=== PATIENT | male | born 1995 | race Asian ===

== ENCOUNTER 2016-09-05 23:30 | Inpatient (IN) | payer OTHER ==
--- NOTE | 2016-09-05 23:52 | PDOC ---
History of Present Illness - General History Source: EMS, Care Home Records, Old Records Exam Limitations: No Limitations - History of Present Illness Initial Comments: 09/06/16 01:49 The patient is a 21 year old male with past medical history of PEG placement, endoscopy and colonoscopy (1 month ago) , pyloric stricture, MR, seizures, down syndrome, volvulus, from [facility] accompanied by an aide, who presents to the ED with complaints of persistent fever (Tmax 105), productive cough, and diarrhea for one week. The patient was treated for the flu last week, but his fever has still persisted. The patient denies nausea, vomiting, or any urinary symptoms. <Alicia San - Last Filed: 09/06/16 01:49> <Erin Chadwick - Last Filed: 09/06/16 18:15> - General Stated Complaint: FEVER Time Seen by Provider: 09/05/16 23:47 Past History <Alicia San - Last Filed: 09/06/16 01:49> - Past Medical History GI Disorders: Yes (Alverto Button) Psychiatric Problems: Yes (autism, down syndrome,tantrums) Seizures: Yes - Surgical History Abdominal Surgery: (TESFAYE-BARAKAT BUTTON) - Immunization History Immunization Up to Date: Yes - Psycho/Social/Smoking Cessation Hx Anxiety: No Suicidal Ideation: No Smoking History: Never smoked Have you smoked in the past 12 months: No Hx Alcohol Use: No Drug/Substance Use Hx: No Substance Use Type: None Hx Substance Use Treatment: No <Erin Chadwick - Last Filed: 09/06/16 18:15> - Past Medical History Allergies/Adverse Reactions: Allergies Allergy/AdvReac Type Severity Reaction Status Date / Time Penicillins Allergy Verified 09/06/16 02:28 shellfish derived Allergy Verified 09/06/16 02:28 Home Medications: Ambulatory Orders Melatonin 6 mg GT HS 12/03/13 Levetiracetam [Keppra Oral Solution -] 500 mg GT BID 03/27/15 Polyethylene Glycol 3350 [Glycolax] 17 gm GT BID 03/27/15 Acetaminophen [Tylenol] 650 mg GT Q4H PRN 04/11/15 Phenobarbital Liquid - [Phenobarbital Liquid 20 MG/5 ML -] 40 mg GT AM 04/11/15 Phenobarbital Liquid - [Phenobarbital Liquid 20 MG/5 ML -] 60 mg GT HS 04/11/15 Fluticasone Prop 0.05% Nasal [Flonase -] 1 - 2 spray NS BID 03/10/16 Ranitidine Oral Solution [Zantac Oral Solution -] 150 mg GT BID 03/10/16 Simethicone Liquid [Mylicon Liquid -] 40 mg GT TID 03/10/16 Sucralfate Oral Suspension [Carafate Oral Suspension -] 1 gm GT TID 03/10/16 Loperamide HCl [Loperamide] 2 mg GT BID PRN 06/02/16 Medium Chain Triglycerides [Mct Oil] 15 ml GT TID 06/02/16 Bisacodyl Suppository [Dulcolax Suppository -] 10 mg RC DAILY PRN #0 supp.rect 06/05/16 Silver Sulfadiazine 1% Top Cr [Silvadene -] 1 applic TP BID jar 06/05/16 Multivits W-Min/Ferrous Gluc [Centrum Multivit-Mineral Liq] 9 mg GT DAILY Review of Systems - Review of Systems Able to Perform ROS?: Yes Comments:: 09/06/16 01:49 CONSTITUTIONAL: Present: fever Absent: chills, diaphoresis, generalized weakness, malaise, loss of appetite HEENT: Absent: rhinorrhea, nasal congestion, throat pain, throat swelling, difficulty swallowing, mouth swelling, ear pain, eye pain, visual Changes CARDIOVASCULAR: Absent: chest pain, syncope, palpitations, irregular heart rate, lightheadedness , peripheral edema RESPIRATORY: Present: productive cough Absent: shortness of breath, dyspnea with exertion, orthopnea, wheezing, stridor, hemoptysis GASTROINTESTINAL: Present: diarrhea Absent: abdominal pain, abdominal distension, nausea, vomiting, constipation, melena, hematochezia GENITOURINARY: Absent: dysuria, frequency, urgency, hesitancy, hematuria, flank pain, genital pain MUSCULOSKELETAL: Absent: myalgia, arthralgia, joint swelling SKIN: Absent: rash, itching, pallor HEMATOLOGIC/IMMUNOLOGIC: Absent: easy bleeding, easy bruising, lymphadenopathy, frequent infections ENDOCRINE: Absent: unexplained weight gain, unexplained weight loss, heat intolerance, cold intolerance NEUROLOGIC: Absent: headache, focal weakness or paresthesias, dizziness, unsteady gait, seizure, mental status changes, bladder or bowel incontinence PSYCHIATRIC: Absent: anxiety, depression, suicidal or homicidal ideation, hallucinations. All Other Systems: Reviewed and Negative <Alicia San - Last Filed: 09/06/16 01:49> *Physical Exam - Physical Exam Comments: 09/06/16 01:50 GENERAL: Thin. Awake and alert. No acute distress. HEENT: Normocephalic, atraumatic. PERRLA, EOMI. No conjunctival pallor. Sclera are non- icteric. Moist mucous membranes. Oropharynx is clear. NECK: Supple. Full ROM. No JVD. Carotid pulses 2+ and symmetric, without bruits. No thyromegaly. No lymphadenopathy. CARDIOVASCULAR: Tachycardic. No murmurs, rubs, or gallops. Distal pulses are 2+ and symmetric. PULMONARY: No evidence of respiratory distress. Lungs clear to auscultation bilaterally. No wheezing, rales or rhonchi. ABDOMINAL: Soft. Non-tender. Distended abdomen. No rebound or guarding. No organomegaly. Tympanic bowel sounds. MUSCULOSKELETAL Normal range of motion at all joints. No bony deformities or tenderness. No CVA tenderness. EXTREMITIES: No cyanosis. No clubbing. No edema. No calf tenderness. SKIN: Warm and dry. Normal capillary refill. Sacral decubitus ulcer. NEUROLOGICAL: Contractured limbs but is making purposeful movement in extremities, non-verbal , non-ambulatory, incontinent Alert, awake. PSYCHIATRIC: Cooperative. Good eye contact. Appropriate mood and affect. <Alicia San - Last Filed: 09/06/16 01:49> ED Treatment Course - LABORATORY CBC & Chemistry Diagram: 09/06/16 01:00 09/06/16 01:00 - ADDITIONAL ORDERS Additional order review: 09/06/16 01:00 RBC 3.11 L D MCV 82.0 MCHC 30.5 L RDW 15.3 MPV 9.5 Neutrophils % Y Lymphocytes % Y <Alicia San - Last Filed: 09/06/16 01:49> - LABORATORY CBC & Chemistry Diagram: 09/06/16 07:40 09/06/16 07:40 <Erin Chadwick - Last Filed: 09/06/16 18:15> *DC/Admit/Observation/Transfer - Attestations Scribe Attestion: 09/06/16 01:54 Documentation prepared by Alicia San, acting as medical detailist for Erin Chadwick MD. <Alicia San - Last Filed: 09/06/16 01:49> - Discharge Dispostion Admit: Yes <Erin Chadwick - Last Filed: 09/06/16 18:15> Diagnosis at time of Disposition: Abdominal distention, Dehydration Diarrhea Qualifiers: Diarrhea type: unspecified type Qualified Code(s): R19.7 - Diarrhea, unspecified Pneumonia Qualifiers: Pneumonia type: due to unspecified organism Laterality: right Lung location: lower lobe of lung Qualified Code(s): J18.9 - Pneumonia, unspecified organism Anemia Qualifiers: Anemia type: other cause Other causes of anemia: other cause, not classified Qualified Code(s): D64.89 - Other specified anemias - Discharge Dispostion Condition at time of disposition: Fair
[2016-09-06] MEDS ORDERED: ACETAMINOPHEN 1000 MG/100 ML VIAL (NON FORMULARY) IVPB ONE (01:04)
[2016-09-06] MEDS ORDERED: SODIUM CHLORIDE 500 ML IV STA ×2 (01:04→04:09)
[2016-09-06 01:16] LABS: MCHC 30.5 g/dl (32.0-35.9); MEAN PLT VOLUME 9.5 fl (7.5-11.1); PLATELET COUNT 307 K/MM3 (134-434); RDW 15.3 % (11.9-15.9); WHITE BLOOD COUNT 21.2 K/mm3 (4.0-10.0)
[2016-09-06 01:44] LABS: ALBUMIN 2.9 g/dl (3.4-5.0); ANION GAP 11 (8-16); BILIRUBIN,TOTAL 0.3 mg/dL (0.2-1.0); CALCIUM 8.1 mg/dL (8.5-10.1); CO2 24 mmol/L (21-32); CREATININE 0.4 mg/dL (0.7-1.3); GLUCOSE,RANDOM 88 mg/dL (74-106); SGOT/AST 39 U/L (15-37); SGPT/ALT 33 U/L (12-78); TOT PROT 6.7 g/dl (6.4-8.2)
[2016-09-06 01:45] LABS: ALK PHOS 115 U/L (45-117)
[2016-09-06 02:12] LABS: VENOUS PH 7.5 (7.31-7.41)
[2016-09-06 02:13] LABS: VENOUS BLOOD GAS HCO3 23.2 meq/L (22-29)
[2016-09-06] MEDS ORDERED: LEVOFLOXACIN 500 MG IVPB 100 ML IVPB ONE (02:18)
[2016-09-06 02:28] VITALS: BMI 18.8
[2016-09-06 02:35] LABS: ANISOCYTOSIS 1+; POLYCHROMASIA 1+; SPHEROCYTE 1+
--- NOTE | 2016-09-06 04:28 | HP ---
CHIEF COMPLAINT: fever PCP: Dr. Rojo HISTORY OF PRESENT ILLNESS: This is a 21 year old male with a past medical history of down syndrome with severe MR, PEG, pyloric stricture, seizure disorder and recurrent volvulus ( most recently hospitalized 07/24-08/04 for same) who presents with fever and cough as per staff at [facility] [place]. Pt was recently treated for influenza with tamiflu, last dose yesterday, as there was influenza at the facility. Pt was sent to the ED for evaluation of temperature of 105 at facility. Pt is nonverbal at baseline and information is obtained from doll surgeon, nurse at facility and medical records. ER course was notable for: (1) temp 103 (2) WBC 21.2 (3) Hgb 7.8 Recent Travel: none PAST MEDICAL HISTORY: Downs Syndrome w/ severe MR Seizures Autism PICA PAST SURGICAL HISTORY: PEG encoscopy and colonoscopy on last admission Social History: Smoking: none Alcohol: none Drugs: none Family History: unable to obtain, pt nonverbal Allergies Penicillins Allergy (Verified 09/06/16 02:28) shellfish derived Allergy (Verified 09/06/16 02:28) HOME MEDICATIONS: 3 Medication Instructions Recorded Melatonin 6 mg GT HS 12/03/13 Levetiracetam [Keppra Oral 500 mg GT BID 03/27/15 Solution -] Polyethylene Glycol 3350 [Glycolax] 17 gm GT BID 03/27/15 Acetaminophen [Tylenol] 650 mg GT Q4H PRN 04/11/15 Phenobarbital Liquid - 40 mg GT AM 04/11/15 [Phenobarbital Liquid 20 MG/5 ML -] Phenobarbital Liquid - 60 mg GT HS 04/11/15 [Phenobarbital Liquid 20 MG/5 ML -] Fluticasone Prop 0.05% Nasal 1 - 2 spray NS BID 03/10/16 [Flonase -] Ranitidine Oral Solution [Zantac 150 mg GT BID 03/10/16 Oral Solution -] Simethicone Liquid [Mylicon Liquid 40 mg GT TID 03/10/16 -] Sucralfate Oral Suspension 1 gm GT TID 03/10/16 [Carafate Oral Suspension -] Loperamide HCl [Loperamide] 2 mg GT BID PRN 06/02/16 Medium Chain Triglycerides [Mct 15 ml GT TID 06/02/16 Oil] Bisacodyl Suppository [Dulcolax 10 mg RC DAILY PRN #0 supp.rect 06/05/16 Suppository -] Silver Sulfadiazine 1% Top Cr 1 applic TP BID jar 06/05/16 [Silvadene -] Multivits W-Min/Ferrous Gluc 9 mg GT DAILY 07/20/16 [Centrum Multivit-Mineral Liq] REVIEW OF SYSTEMS CONSTITUTIONAL: Present: fever Absent: chills, diaphoresis, generalized weakness, malaise, loss of appetite, weight change HEENT: Absent: rhinorrhea, nasal congestion, throat pain, throat swelling, difficulty swallowing, mouth swelling, ear pain, eye pain, visual changes CARDIOVASCULAR: Absent: chest pain, syncope, palpitations, irregular heart rate, lightheadedness , peripheral edema RESPIRATORY: Present: cough Absent: shortness of breath, dyspnea with exertion, orthopnea, wheezing, stridor , hemoptysis GASTROINTESTINAL:Present: abdominal distension, diarrhea, last BM 09/04, loose x 2 Absent: abdominal pain, nausea, vomiting, constipation, melena, hematochezia GENITOURINARY: Absent: dysuria, frequency, urgency, hesitancy, hematuria, flank pain, genital pain MUSCULOSKELETAL: Absent: myalgia, arthralgia, joint swelling, back pain, neck pain SKIN: Absent: rash, itching, pallor HEMATOLOGIC/IMMUNOLOGIC: Absent: easy bleeding, easy bruising, lymphadenopathy, frequent infections ENDOCRINE: Absent: unexplained weight gain, unexplained weight loss, heat intolerance, cold intolerance NEUROLOGIC: Absent: headache, focal weakness or paresthesias, dizziness, unsteady gait, seizure, mental status changes, bladder or bowel incontinence PSYCHIATRIC: Absent: anxiety, depression, suicidal or homicidal ideation, hallucinations. PHYSICAL EXAMINATION Vital Signs - 24 hr 3 09/06/16 02:24 Temperature 103 F H Pulse Rate 119 H Respiratory 22 Rate Blood Pressure 109/53 O2 Sat by Pulse 95 Oximetry (%) GENERAL: Awake, alert, and nonverbal, in no acute distress. HEAD: Normal with no signs of trauma. EYES: Pupils equal, round and reactive to light, extraocular movements grossly intact; unable to follow commands, sclera anicteric, conjunctiva clear. No lid lag. EARS, NOSE, THROAT: Ears normal, nares patent, oropharynx clear without exudates. Moist mucous membranes. NECK: Normal range of motion, supple without lymphadenopathy, JVD, or masses. LUNGS: Breath sounds equal, clear to auscultation bilaterally. No wheezes, and no crackles. No accessory muscle use. HEART: Regular rate and rhythm, normal S1 and S2 without murmur, rub or gallop. ABDOMEN: nontender, normoactive bowel sounds, no guarding, no rebound, no masses. No hepatomegaly or splenomegaly. GT site noted with mild discharge and excoriation, surrounding skin painted blue, Firm, distended. rectal vault empty, distended MUSCULOSKELETAL: Normal range of motion at all joints. No bony deformities or tenderness. No CVA tenderness. UPPER EXTREMITIES: 2+ pulses, warm, well-perfused. No cyanosis. No clubbing. Cap refill <2 seconds. No peripheral edema. LOWER EXTREMITIES: 2+ pulses, warm, well-perfused. No calf tenderness. No peripheral edema. NEUROLOGICAL: Cranial nerves II-XII intact. Normal speech. Normal gait. PSYCHIATRIC: unable to follow commands, tracks a light with his eyes SKIN: Hot, dry, normal turgor, no rashes or lesions noted. stage 2 PU noted sacral area, approx 2cm x 1cm, wound bed pink, no slough, no discharge, healing ulcer noted right ischium, + erythema, dry skin with small areas of scabbing. Laboratory Results - last 24 hr 3 09/06/16 09/06/16 09/06/16 09/06/16 09/06/16 01:00 01:00 01:00 02:05 02:59 WBC 21.2 H D RBC 3.11 L D Hgb 7.8 L D Hct 25.5 L D MCV 82.0 MCHC 30.5 L RDW 15.3 Plt Count 307 D MPV 9.5 Neutrophils % 83.0 H D Lymphocytes % 2.0 L D Monocytes % 2.0 L D Band Neutrophils 13.0 H Polychromasia 1+ Anisocytosis 1+ Spherocytes 1+ VBG pH 7.50 H POC VBG pCO2 30.3 L D POC VBG pO2 84.9 H D Sodium 143 Potassium 3.7 Chloride 108 H Carbon Dioxide 24 Anion Gap 11 BUN 20 H D Creatinine 0.4 L Creat Clearance w eGFR > 60 Random Glucose 88 Lactic Acid 1.729 Calcium 8.1 L Total Bilirubin 0.3 D AST 39 H D ALT 33 D Alkaline Phosphatase 115 D Total Protein 6.7 D Albumin 2.9 L Stool Occult Blood Positive ASSESSMENT/PLAN: 21yM with PMH 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 He is being admitted for sepsis. Sepsis secondary to pneumonia vs acute abdominal pathology - sepsis as indicated by fever, tachycardia and elevated WBC - received 500mg levofloxacin in ED, consider change to zosyn/vanc given hospitalization 1 month ago and lives in group setting so high risk for resistant microbes, await CT result - NS bolus 500cc given, will repeat as still no urine output. FC to be placed until urine obtained. Abdominal distention/volvulus - CT abd/pelvis with contrast via GT ordered - rectal tube placed, gas and 200cc liquid stool obtained, with improvement in abd distention; will need GT to suction after CT completed. - likely will need GI and surgery follow up. On previous admission diverting colostomy had been recommended as outpatient - as per nurse at [facility], no evidence of scheduled follow-up with surgery actually being completed anemia - no active bleeding noted on rectal exam but stool guiac positive - repeat CBC in AM PU stage 2 sacrum - allevyn dressing seizure disorder - cont home keppra dose functional quadriplegia - pt is unable to feed self, turn or toilet independently, dependent on staff for all ADLS - hi risk for aspiration pneumonia, pressure ulcers. - cont to provide supportive care DVT PPX - defer heparin as guaic positive and anemia - BOBBY stockings and SCD FEN - NS @ 125cc/hr when bolus completes - repeat BMP in am - hold tube feeding due to abd distention Dispo: Pt currently requires inpatient care. Visit type - Emergency Visit Emergency Visit: Yes ED Registration Date: 09/05/16 Care time: The patient presented to the Emergency Department on the above date and was hospitalized for further evaluation of their emergent condition. - New Patient This patient is new to me today: Yes Date on this admission: 09/06/16 - Critical Care Critical Care patient: No
[2016-09-06 04:36] LABS: URINE APPEARANCE SLCLOUDY; URINE BILIRUBIN NEGATIVE (NEGATIVE); URINE BLOOD NEGATIVE (NEGATIVE); URINE COLOR YELLOW; URINE GLUCOSE (UA) NEGATIVE (NEGATIVE); URINE KETONE TRACE (NEGATIVE); URINE LEUK ESTERASE NEGATIVE (NEGATIVE); URINE NITRITE NEGATIVE (NEGATIVE); URINE UROBILINOGEN 2.0 E.U/dl E.U./dl (0.2-1.0)
[2016-09-06] MEDS ORDERED: SODIUM CHLORIDE 1,000 ML IV SCH (04:45)
[2016-09-06 05:06] LABS: URINE PROTEIN 1+ (NEGATIVE)
[2016-09-06] MEDS ORDERED: MEDIUM CHAIN TRIGLYCERIDES GT SCH (06:00)
[2016-09-06] MEDS ORDERED: PHENOBARBITAL 20 MG/5 ML *473mL BULK BOTTLE GT SCH ×2 (07:00→22:00)
[2016-09-06] MEDS ORDERED: DEXTROSE 5%-NORMAL SALINE 1,000 ML with POTASSIUM CHLORIDE 40 MEQ IVPB SCH (08:00)
[2016-09-06 08:02] LABS: BASOPHIL 0.3 % (0-2.0); EOSINOPHIL 0.1 % (0-4.5); MCH 25.8 pg (25.7-33.7); MCHC 31.3 g/dl (32.0-35.9); MEAN CELL VOLUME 82.3 fl (80-96); MEAN PLT VOLUME 8.9 fl (7.5-11.1); NEUTROPHILS 92.7 % (42.8-82.8); PLATELET COUNT 240 K/MM3 (134-434); WHITE BLOOD COUNT 19.9 K/mm3 (4.0-10.0)
[2016-09-06 08:14] LABS: INR 1.35 (0.82-1.09); PROTHROMBIN TIME (PATIENT) 14.9 SEC (9.98-11.88)
[2016-09-06] MEDS: SUCRALFATE 1 GM/10 ML UNIT DOSE CUPS GT SCH ×2 (08:15→14:47)
[2016-09-06] MEDS: SIMETHICONE 40 MG/0.6 ML BOTTLE GT SCH ×2 (08:15→14:47)
[2016-09-06 08:17] LABS: ACTIVATED PTT 35.5 SECONDS (26.9-34.4)
[2016-09-06] MEDS: DEXTROSE 5%-NORMAL SALINE 1,000 ML IV SCH (08:18)
[2016-09-06 08:27] LABS: CALCIUM 7.3 mg/dL (8.5-10.1); CREATININE 0.3 mg/dL (0.7-1.3); MAGNESIUM 2.1 mg/dL (1.8-2.4); PHOSPHOROUS 1.5 mg/dL (2.5-4.9)
[2016-09-06] MEDS: FLUTICASONE PROP 0.05% 16 GM NASAL SPRAY NS SCH ×2 (09:08→23:05)
[2016-09-06] MEDS ORDERED: RANITIDINE HCL 150 MG/10 ML UNIT-DOSE CUP GT SCH (10:00)
[2016-09-06] MEDS ORDERED: MULTIVITAMINS LIQUID THERAPEUTIC 118 ML BOT GT SCH (10:00)
[2016-09-06] MEDS ORDERED: levETIRAcetam 500 MG/5 ML ORAL SOLUTION (UNIT-DOSE CUPS) GT SCH (10:00)
[2016-09-06] MEDS: METRONIDAZOLE 500 MG PREMIXED 100 ML IVPB SCH ×2 (12:58→19:40)
--- NOTE | 2016-09-06 16:54 | PN ---
Physical Exam: SUBJECTIVE: Patient seen and examined in the ER. He appeared lethargic and in no acute distress. His aide Gonsalo was at the bedside. OBJECTIVE: Vital Signs Period Temp Pulse Resp BP Sys/Begum Pulse Ox Last 24 Hr 97.5 F-97.9 F 78-96 17-20 91-150/54-128 96-110 GENERAL: Pt is lethargic, opens eyes intermittently, in no acute distress. HEAD: Normal with no signs of trauma. EYES: conjunctiva clear. No ptosis. ENT: moist mucous membranes. NECK: Trachea midline, full range of motion, supple. LUNGS: Breath sounds equal, diminished but clear to auscultation bilaterally, no wheezes, HEART: Regular rate and rhythm, S1, S2 without murmur, rub or gallop. ABDOMEN: soft abdomen, + bowel sounds, mildly distended now, some facial grimacing when palpating LLQ, noted to have 1100cc of liquids stool in rectal tube EXTREMITIES: 2+ pulses, warm, well-perfused, no edema. NEUROLOGICAL: Non verbal, bed bound PSYCH: lethargic, facial grimacing on exam SKIN: Stage 2 pressure ulcer (2 cm x 1 cm) noted sacral area without slough, drainage or odor. Wound is present on admission. Laboratory Results - last 24 hr 09/06/16 09/06/16 09/06/16 04:23 04:23 07:40 WBC 19.9 H RBC 2.96 L Hgb 7.6 L Hct 24.4 L MCV 82.3 MCHC 31.3 L RDW 15.0 Plt Count 240 D MPV 8.9 Neutrophils % 92.7 H Lymphocytes % 3.5 L D Monocytes % 3.4 L Eosinophils % 0.1 D Basophils % 0.3 INR PTT (Actin FS) Sodium Potassium Chloride Carbon Dioxide Anion Gap BUN Creatinine Random Glucose Lactic Acid 1.208 Calcium Phosphorus Magnesium Urine Color Yellow Urine Appearance Slcloudy Urine pH 6.0 Ur Specific Omro 1.042 H Urine Protein 1+ H Urine Glucose (UA) Negative Urine Ketones Trace H Urine Blood Negative Urine Nitrite Negative Urine Bilirubin Negative Urine Urobilinogen 2.0 e.u/dl Ur Leukocyte Esterase Negative 09/06/16 09/06/16 07:40 07:40 WBC RBC Hgb Hct MCV MCHC RDW Plt Count MPV Neutrophils % Lymphocytes % Monocytes % Eosinophils % Basophils % INR 1.35 H PTT (Actin FS) 35.5 H Sodium 140 Potassium 3.5 Chloride 111 H Carbon Dioxide 22 Anion Gap 7 L BUN 21 H Creatinine 0.3 L D Random Glucose 74 Lactic Acid Calcium 7.3 L Phosphorus 1.5 L D Magnesium 2.1 Urine Color Urine Appearance Urine pH Ur Specific Omro Urine Protein Urine Glucose (UA) Urine Ketones Urine Blood Urine Nitrite Urine Bilirubin Urine Urobilinogen Ur Leukocyte Esterase Active Medications Generic Name Dose Route Start Last Admin Trade Name David PRN Reason Stop Dose Admin Fluticasone Propionate 1 spray 09/06/16 10:00 09/06/16 09:08 Flonase - NS Not Given BID TRUDY Dextrose/Sodium Chloride 1,000 mls @ 100 mls/hr 09/06/16 08:00 09/06/16 08:18 D5-Ns - IV 100 mls/hr ASDIR TRUDY Administration Metronidazole 100 mls @ 100 mls/hr 09/06/16 12:45 09/06/16 12:58 Flagyl 500mg Premixed Ivpb - IVPB 100 mls/hr Q8H-IV TRUDY Administration Levetiracetam 500 mg 09/06/16 10:00 09/06/16 09:09 Keppra Oral Solution - GT 500 mg BID TRUDY Administration Multivitamins 5 ml 09/06/16 10:00 09/06/16 09:09 Thera-Plus - GT 5 ml DAILY TRUDY Administration Non-Formulary Medication 15 ml 09/06/16 06:00 Medium Chain Triglycerides [Mct Oil] GT TID TRUDY Phenobarbital 40 mg 09/06/16 07:00 09/06/16 08:00 Phenobarbital Liquid - GT 40 mg AM TRUDY Administration Phenobarbital 60 mg 09/06/16 22:00 Phenobarbital Liquid - GT HS TRUDY Ranitidine HCl 150 mg 09/06/16 10:00 09/06/16 09:09 Zantac Oral Solution - GT 150 mg BID TRUDY Administration Simethicone 40 mg 09/06/16 06:00 09/06/16 14:47 Mylicon Liquid - GT 40 mg TID TRUDY Administration Sucralfate 1 gm 09/06/16 06:00 09/06/16 14:47 Carafate Oral Suspension - GT 1 gm TID TRUDY Administration ASSESSMENT/PLAN: [facility] 21 [facility] with a significant past medical history of down syndrome, profound MR, autism, pyloric stricture, PEG tube, seizures and recurrent Volvulus. He presented to the ER on 2015 from his assisted with fevers of 105F. He is being admitted for sepsis, diarrhea, abdominal distention and dehydration. ID: Sepsis - acute Assessmen/Plan: Unclear etiology of sepsis (pneumonia vs abdominal source). In ER he was noted to have a fever of 103F, have tachycardia with leukocytosis ( WBC 21.2). He received Levaquin 500mg in ED, Saline bolus of 500cc. His abdomen was noted to be very firm and distended in ED and rectal tube was placed. He has since put out over 1100 cc of liquid stool. His abdomen now is soft, with mild distention. Will hold off on intermittent GT suction for now and continue rectal tube. He is negative for c.diff CT scan of the abdomen shows rt mid/rll pneumonia. Cannot rule out complete or transient Volvulus. Started pt on Flagyl q8 pending GI recommendations ID consulted as pt has multiple risk factors and at risk for severe sepsis Hematology: Anemia - acute Assessment/Plan: Stool is guiac positive, CBC repeated and remains anemic will stop Zantac and start on IVP Protonix BID, if active GI bleed, will start on protonix drip Will repeat CBC in a.m. Transfuse prbc if hmg less than 7. Integumentary: Stage 2 pressure ulcer of the Sacrum - chronic Assessment/Plan: This wound measures (2 cm x 1 cm) and was present on admission. The wound does not appear infected, there is no drainage, odor or slough. Wound should be cleansed daily with sterile saline and covered with Allevyn dressing Turn and position q 2 Neurology: Seizure Disorder - chronic On Keppra 500mg BID through GT in assisted, switched to the equivalent IV since NPO. Phenobarbitol also switched to the equivalent IV form. Confirmed dosage conversion with pharmacy Seizure precautions F.E.N. hold tube feeds and GT meds since NPO IV fluids of D5 NS at 100cc/hr Prophylaxis: DVT: SCDs, no AC secondary to positive guiac GI: Protonix 40mg IV BID Dispo: Pt currently requires inpatient care. Full Code Visit type - Emergency Visit Emergency Visit: Yes ED Registration Date: 09/06/16 Care time: The patient presented to the Emergency Department on the above date and was hospitalized for further evaluation of their emergent condition. - New Patient This patient is new to me today: Yes Date on this admission: 09/06/16 - Critical Care Critical Care patient: No - Discharge Referral Referred to [facility] No
--- NOTE | 2016-09-06 18:08 | CONSULT ---
Consult Consult Specialty:: infectious diseases Reason for Consultation:: abd distension. colitis - History of Present Illness History of Present Illness: This is a 21 year old male with a past medical history of down syndrome with severe MR, PEG, pyloric stricture, seizure disorder and recurrent volvulus ( most recently hospitalized 07/24-08/04 for same) who presents with fever and cough as per staff at [facility]. Pt was recently treated for influenza with tamiflu, last dose yesterday, as there was influenza at the facility. Pt was sent to the ED for evaluation of temperature of 105 at facility. Pt is nonverbal at baseline and information is obtained from retirement assistant, nurse at facility and medical records. patient comes in with abd distension and colitis according to his previous notes patient has couple of times volvolus and the problems are caused by that The distension caused by the recurring volvulus caused pressure and leakage leading to ulceration beneath and adjacent to his G tube. looks like option of surgery was discussed with the family patient has excoriation below the tube - Past Medical History ETL LEAD: Yes: Seizure, Other (Down Syndrome, autistic) Gastrointestinal: Yes: Constipation, GI Bleed (rectal erosion bleed 05/03), Other (chronic pseudoobstruction, G-tube feedings) - Past Surgical History Past Surgical History: Yes: Colonoscopy - Alcohol/Substance Use Hx Alcohol Use: No - Smoking History Smoking history: Never smoked Have you smoked in the past 12 months: No - Social History Usual Living Arrangement: Assisted Living ADL: Support Services Home Medications - Allergies Allergies/Adverse Reactions: Allergies Allergy/AdvReac Type Severity Reaction Status Date / Time Penicillins Allergy Verified 09/06/16 02:28 shellfish derived Allergy Verified 09/06/16 02:28 - Home Medications Home Medications: Ambulatory Orders Melatonin 6 mg GT HS 12/03/13 Levetiracetam [Keppra Oral Solution -] 500 mg GT BID 03/27/15 Polyethylene Glycol 3350 [Glycolax] 17 gm GT Q12H 03/27/15 Acetaminophen [Tylenol] 650 mg GT Q4H PRN 04/11/15 Phenobarbital Liquid - [Phenobarbital Liquid 20 MG/5 ML -] 40 mg GT AM 04/11/15 Phenobarbital Liquid - [Phenobarbital Liquid 20 MG/5 ML -] 60 mg GT HS 04/11/15 Fluticasone Prop 0.05% Nasal [Flonase -] 1 - 2 spray NS BID 03/10/16 Ranitidine Oral Solution [Zantac Oral Solution -] 150 mg GT Q12H 03/10/16 Simethicone Liquid [Mylicon Liquid -] 40 mg GT TID 03/10/16 Sucralfate Oral Suspension [Carafate Oral Suspension -] 1 gm GT TID 03/10/16 Loperamide HCl [Loperamide] 2 mg GT Q4H PRN 06/02/16 Medium Chain Triglycerides [Mct Oil] 15 ml GT TID 06/02/16 Silver Sulfadiazine 1% Top Cr [Silvadene -] 1 applic TP BID jar 06/05/16 Multivits W-Min/Ferrous Gluc [Centrum Multivit-Mineral Liq] 9 mg GT DAILY Bisacodyl 1 mg RC Q12H PRN 09/06/16 Furosemide [Lasix -] 10 mg PO DAILY 09/06/16 Physical Exam Vital Signs: Vital Signs Temperature 97.9 F 09/06/16 15:20 Pulse Rate 84 09/06/16 15:20 Respiratory Rate 17 09/06/16 15:20 Blood Pressure 91/54 09/06/16 15:20 O2 Sat by Pulse Oximetry (%) 98 09/06/16 15:20 Constitutional: Yes: Moderate Distress, Other Cardiovascular: Yes: WNL, Regular Rate and Rhythm Respiratory: Yes: Poor Air Entry, Rhonchi Gastrointestinal: Yes: Distention, Hypoactive Bowel Sounds, Other (tympanic) Renal/: Yes: Other (rectal tube placed) Musculoskeletal: Yes: Other Extremities: Yes: Other Neurological: Yes: Alert, Other Labs: CBC, BMP 09/06/16 07:40 09/06/16 07:40 Imaging - Results Chest X-ray: Report Reviewed, Image Reviewed X-ray: Report Reviewed, Image Reviewed Cat Scan: Report Reviewed, Image Reviewed Assessment/Plan 21yM with PMH 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 He is being admitted for sepsis. Sepsis secondary to pneumonia vs acute abdominal pathology Abdominal distention/volvulus anemia PU stage 2 sacrum seizure disorder functional quadriplegia plan will start patient on aztreonam vanco monitor abd surgery consult gi consult npo hydration
[2016-09-06] MEDS: AZTREONAM 1 GM in DEXTROSE 5%-WATER - 50 ML IVPB SCH (18:23)
[2016-09-06] MEDS ORDERED: METRONIDAZOLE 500 MG PREMIXED 100 ML IVPB ONE (19:40)
--- NOTE | 2016-09-06 21:29 | CONSULT ---
Consult Consult Specialty:: Gastroenterology Referred by:: Dr. Nolasco Reason for Consultation:: Diarrhea and abdominal distension - History of Present Illness Chief Complaint: Unable to offer complaints History of Present Illness: 21M with Down's Syndrome is tranferred from [facility] where he had a fever of 105 and h/o recent flu. CXR revealed poor inspiration with distended bowels loops in the ER. Rectal tube was inserted and CT revealed new bilateral infiltrates. During his last admission Devan underwent and EGD and a colonoscopy. Colonoscopy ( 07/27/16) revealed a stercoral ulcer which has been a source of bleeding. He was also found to have a sigmoid colon volvulus transition area that was confirmed by gastrograffin enema. A hyperplastic sigmoid polyp was removed. EGD ( 07/27/16) revealed a long benign long antral stricture which was not traversable with an endoscope. These problems were discussed with Trini, his sister in [place] who is his health care proxy with options including a diverting colostomy and perhaps a gastroenterostomy or J tube insertion. Trini was agreeable to the colostomy. Surgery was consulted but chose to defer the procedure to an outpatient situation which never came to fruition. The distension caused by the recurring volvulus caused pressure and leakage leading to ulceration beneath and adjacent to his Adria G tube. 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: Seizure, Other (Down Syndrome, autistic) Pulmonary: Yes: Pneumonia Gastrointestinal: Yes: Constipation, GERD (esophageal ulcer bleed endoclipped at [facility], h/o bleeding Mackenzie Radha tear), GI Bleed (rectal erosion bleed 05/03), Other (sigmoid volvulus,chronic pseudoobstruction, Adria G-tube feedings, stercoral rectal ulcer,antral stricture, hyperplastic sigmoid polyp ) - Past Surgical History Past Surgical History: Yes: Colonoscopy, Upper Endoscopy Additional Surgical History: Adria G tube insertion after repeated avulsions - Alcohol/Substance Use Hx Alcohol Use: No - Smoking History Smoking history: Never smoked Have you smoked in the past 12 months: No - Social History Usual Living Arrangement: Assisted Living ADL: Support Services Place of : [facility] History of Recent Travel: No Home Medications - Allergies Allergies/Adverse Reactions: Allergies Allergy/AdvReac Type Severity Reaction Status Date / Time Penicillins Allergy Verified 09/06/16 02:28 shellfish derived Allergy Verified 09/06/16 02:28 - Home Medications Home Medications: Ambulatory Orders Melatonin 6 mg GT HS 12/03/13 Levetiracetam [Keppra Oral Solution -] 500 mg GT BID 03/27/15 Polyethylene Glycol 3350 [Glycolax] 17 gm GT Q12H 03/27/15 Acetaminophen [Tylenol] 650 mg GT Q4H PRN 04/11/15 Phenobarbital Liquid - [Phenobarbital Liquid 20 MG/5 ML -] 40 mg GT AM 04/11/15 Phenobarbital Liquid - [Phenobarbital Liquid 20 MG/5 ML -] 60 mg GT HS 04/11/15 Fluticasone Prop 0.05% Nasal [Flonase -] 1 - 2 spray NS BID 03/10/16 Ranitidine Oral Solution [Zantac Oral Solution -] 150 mg GT Q12H 03/10/16 Simethicone Liquid [Mylicon Liquid -] 40 mg GT TID 03/10/16 Sucralfate Oral Suspension [Carafate Oral Suspension -] 1 gm GT TID 03/10/16 Loperamide HCl [Loperamide] 2 mg GT Q4H PRN 06/02/16 Medium Chain Triglycerides [Mct Oil] 15 ml GT TID 06/02/16 Silver Sulfadiazine 1% Top Cr [Silvadene -] 1 applic TP BID jar 06/05/16 Multivits W-Min/Ferrous Gluc [Centrum Multivit-Mineral Liq] 9 mg GT DAILY Bisacodyl 1 mg RC Q12H PRN 09/06/16 Furosemide [Lasix -] 10 mg PO DAILY 09/06/16 Physical Exam-GI Vital Signs: Vital Signs Temperature 96.6 F L 09/06/16 19:45 Pulse Rate 82 09/06/16 19:45 Respiratory Rate 20 09/06/16 19:45 Blood Pressure 98/73 09/06/16 19:45 O2 Sat by Pulse Oximetry (%) 95 09/06/16 19:45 Current Medications Generic Name Dose Route Start Last Admin Trade Name Freq PRN Reason Stop Dose Admin Fluticasone Propionate 1 spray 09/06/16 10:00 09/06/16 09:08 Flonase - NS Not Given BID TRUDY Dextrose/Sodium Chloride 1,000 mls @ 100 mls/hr 09/06/16 08:00 09/06/16 08:18 D5-Ns - IV 100 mls/hr ASDIR TRUDY Administration Metronidazole 100 mls @ 100 mls/hr 09/06/16 12:45 09/06/16 19:40 Flagyl 500mg Premixed Ivpb - IVPB 100 mls/hr Q8H-IV TRUDY Administration Pantoprazole Sodium 100 mls @ 200 mls/hr 09/06/16 22:00 Protonix 40mg Ivpb (Pre-Docked) IVPB BID TRUDY Aztreonam 1 gm/ Dextrose 50 mls @ 100 mls/hr 09/06/16 18:15 09/06/16 18:23 IVPB 100 mls/hr Q8H-IV TRUDY Administration Vancomycin HCl 250 mls @ 250 mls/hr 09/06/16 22:00 Vancomycin (Pre-Docked) IVPB BID TRUDY Levetiracetam 500 mg 09/06/16 22:00 Keppra Injection - IVPB BID TRUDY Non-Formulary Medication 15 ml 09/06/16 06:00 Medium Chain Triglycerides [Mct Oil] GT TID TRUDY Phenobarbital 40 mg 09/07/16 10:00 Phenobarbital Injection - IVPB DAILY TRUDY Phenobarbital 60 mg 09/06/16 22:00 Phenobarbital Injection - IVPB HS TRUDY CBC,CMP WBC 19.9 K/mm3 (4.0-10.0) H 09/06/16 07:40 RBC 2.96 M/mm3 (4.00-5.60) L 09/06/16 07:40 Hgb 7.6 GM/dL (11.7-16.9) L 09/06/16 07:40 Hct 24.4 % (35.4-49) L 09/06/16 07:40 MCV 82.3 fl (80-96) 09/06/16 07:40 MCHC 31.3 g/dl (32.0-35.9) L 09/06/16 07:40 RDW 15.0 % (11.9-15.9) 09/06/16 07:40 Plt Count 240 K/MM3 (134-434) D 09/06/16 07:40 MPV 8.9 fl (7.5-11.1) 09/06/16 07:40 Neutrophils % 92.7 % (42.8-82.8) H 09/06/16 07:40 Lymphocytes % 3.5 % (8-40) L D 09/06/16 07:40 Monocytes % 3.4 % (3.8-10.2) L 09/06/16 07:40 Eosinophils % 0.1 % (0-4.5) D 09/06/16 07:40 Basophils % 0.3 % (0-2.0) 09/06/16 07:40 Band Neutrophils 13.0 % (0-10) H 09/06/16 01:00 Polychromasia 1+ 09/06/16 01:00 Anisocytosis 1+ 09/06/16 01:00 Spherocytes 1+ 09/06/16 01:00 Sodium 140 mmol/L (136-145) 09/06/16 07:40 Potassium 3.5 mmol/L (3.5-5.1) 09/06/16 07:40 Chloride 111 mmol/L (98-107) H 09/06/16 07:40 Carbon Dioxide 22 mmol/L (21-32) 09/06/16 07:40 Anion Gap 7 (8-16) L 09/06/16 07:40 BUN 21 mg/dL (7-18) H 09/06/16 07:40 Creatinine 0.3 mg/dL (0.7-1.3) L D 09/06/16 07:40 Creat Clearance w eGFR > 60 (>60) 09/06/16 01:00 POC Glucometer 119.41078 UNITS (()) 09/06/16 17:52 Random Glucose 74 mg/dL (74-106) 09/06/16 07:40 Lactic Acid 1.208 mmol/L (0.4-2.0) 09/06/16 04:23 Calcium 7.3 mg/dL (8.5-10.1) L 09/06/16 07:40 Phosphorus 1.5 mg/dL (2.5-4.9) L D 09/06/16 07:40 Magnesium 2.1 mg/dL (1.8-2.4) 09/06/16 07:40 Total Bilirubin 0.3 mg/dL (0.2-1.0) D 09/06/16 01:00 AST 39 U/L (15-37) H D 09/06/16 01:00 ALT 33 U/L (12-78) D 09/06/16 01:00 Alkaline Phosphatase 115 U/L (45-117) D 09/06/16 01:00 Total Protein 6.7 g/dl (6.4-8.2) D 09/06/16 01:00 Albumin 2.9 g/dl (3.4-5.0) L 09/06/16 01:00 Constitutional: Yes: Anxious, Diaphoresis Eyes: Yes: Conjunctiva Clear HENT: Yes: Drooling Neck: Yes: Supple Cardiovascular: Yes: Regular Rate and Rhythm, Tachycardia Respiratory: Yes: Rhonchi (bilaterally at bases) Gastrointestinal Inspection: Yes: Distention, Other (epigastrc Adria Gtube wih adjacent erosions cleansed and redressed, no fluctuance) ...Auscultate: Yes: Normoactive Bowel Sounds ...Palpate: Yes: Soft, Other (nontender) ...Percussion: Yes: Tympanitic ...Rectal Exam: Yes: Guaiac Positive, Other (no perianal or rectal abscesses found, rectal tube in place) Labs: CBC, BMP 09/06/16 07:40 09/06/16 07:40 INR, PTT INR 1.35 (0.82-1.09) H 09/06/16 07:40 Imaging - Results Cat Scan: Image Reviewed (diated proximal half of colon, G tube, bilateral pneumonias) Problem List - Problems (1) Sigmoid volvulus Code(s): K56.2 - VOLVULUS (2) Stercoral ulcer of rectum Code(s): K62.6 - ULCER OF ANUS AND RECTUM (3) Gastric hourglass stricture or stenosis Code(s): K31.2 - HOURGLASS STRICTURE AND STENOSIS OF STOMACH (4) Sigmoid polyp Code(s): D12.5 - BENIGN NEOPLASM OF SIGMOID COLON (5) H/O Mackenzie-Guillen syndrome Code(s): Z87.19 - PERSONAL HISTORY OF OTHER DISEASES OF THE DIGESTIVE SYSTEM Assessment/Plan Devan's fever appears to reflect bilateral pneumonias which I suspect to be due to aspiration. This could reflect his antral stricture or volvulus or both. Given the complexity of his condition I feel that he would best be served by a diverting colostomy and surgical placement of a feeding jejunostomy tube. NG suctioning will be started to more adequately relieve his distension. A surgical consultation is necessary before these options can be discussed again with Trini, his sister and HCP. I will leave the pneumonia management to ID solar energy consultant and designer
[2016-09-06] MEDS ORDERED: PT OWN MED DRAWER 7, Y5N ONE (21:57)
[2016-09-06] MEDS: PANTOPRAZOLE SODIUM 100 ML IVPB SCH (23:05)
[2016-09-06] MEDS: VANCOMYCIN 1 GRAM (PRE-DOCKED) 250 ML IVPB SCH (23:09)
[2016-09-07] MEDS: levETIRAcetam 500 MG/5 ML INJECTION VIAL IVPB SCH ×3 (00:29→22:26)
[2016-09-07] MEDS: PHENobarbital SODIUM 65 MG/1 ML VIAL IVPB SCH ×3 (01:29→22:27)
[2016-09-07] MEDS: AZTREONAM 1 GM in DEXTROSE 5%-WATER - 50 ML IVPB SCH ×3 (03:24→18:22)
[2016-09-07] MEDS: METRONIDAZOLE 500 MG PREMIXED 100 ML IVPB SCH ×3 (03:46→18:22)
[2016-09-07] MEDS ORDERED: PT OWN MED DRAWER 7, Y5N ONE ×3 (05:18→18:16)
[2016-09-07 06:39] LABS: BASOPHIL 0.3 % (0-2.0); EOSINOPHIL 0.9 % (0-4.5); MCH 25.3 pg (25.7-33.7); MCHC 30.6 g/dl (32.0-35.9); MEAN CELL VOLUME 82.6 fl (80-96); MEAN PLT VOLUME 9.3 fl (7.5-11.1); NEUTROPHILS 83.9 % (42.8-82.8); PLATELET COUNT 302 K/MM3 (134-434); RDW 15.2 % (11.9-15.9); WHITE BLOOD COUNT 7.2 K/mm3 (4.0-10.0)
[2016-09-07 06:53] LABS: INR 1.33 (0.82-1.09); PROTHROMBIN TIME (PATIENT) 14.7 SEC (9.98-11.88)
[2016-09-07 07:12] LABS: ALBUMIN 2.2 g/dl (3.4-5.0); ANION GAP 5 (8-16); CALCIUM 7.1 mg/dL (8.5-10.1); CO2 21 mmol/L (21-32); CREATININE 0.3 mg/dL (0.7-1.3); GLUCOSE,RANDOM 83 mg/dL (74-106); SGOT/AST 26 U/L (15-37); SGPT/ALT 25 U/L (12-78)
[2016-09-07 07:14] LABS: ALK PHOS 70 U/L (45-117); BILIRUBIN,TOTAL 0.3 mg/dL (0.2-1.0); TOT PROT 5.3 g/dl (6.4-8.2)
--- NOTE | 2016-09-07 07:15 | EKG ---
Test Reason : Blood Pressure : / mmHG Vent. Rate : 103 BPM Atrial Rate : 103 BPM P-R Int : 146 ms QRS Dur : 078 ms QT Int : 330 ms P-R-T Axes : 050 055 009 degrees QTc Int : 432 ms SINUS TACHYCARDIA T WAVE ABNORMALITY, CONSIDER ANTERIOR ISCHEMIA ABNORMAL ECG NO PREVIOUS ECGS AVAILABLE Confirmed by RAE CIFUENTES MD ([id number]) on 09/07/2016 7:15:02 AM Referred By: Overread By: RAE CIFUENTES MD
[2016-09-07] MEDS: DEXTROSE 5%-NORMAL SALINE 1,000 ML IV SCH (09:27)
[2016-09-07] MEDS: PANTOPRAZOLE SODIUM 100 ML IVPB SCH ×2 (09:27→22:28)
[2016-09-07] MEDS: VANCOMYCIN 1 GRAM (PRE-DOCKED) 250 ML IVPB SCH ×2 (10:14→22:28)
[2016-09-07] MEDS: FLUTICASONE PROP 0.05% 16 GM NASAL SPRAY NS SCH ×2 (11:16→22:28)
--- NOTE | 2016-09-07 18:09 | PN ---
Progress Note, Physician History of Present Illness: patient better abd still distended i have opened the g tube and let the air out patients abd has decompressed and now the abd is soft and the distension has gone down - Current Medication List Current Medications: Active Medications Fluticasone Propionate (Flonase -) 1 spray NS BID REPLACED BY [facility] Last Admin: 09/07/16 11:16 Dose: 1 spray Dextrose/Sodium Chloride (D5-Ns -) 1,000 mls @ 100 mls/hr IV ASDIR REPLACED BY [facility] Last Admin: 09/07/16 09:27 Dose: 100 mls/hr Metronidazole (Flagyl 500mg Premixed Ivpb -) 100 mls @ 100 mls/hr IVPB Q8H-IV REPLACED BY [facility] Last Admin: 09/07/16 10:57 Dose: 100 mls/hr Pantoprazole Sodium (Protonix 40mg Ivpb (Pre-Docked)) 100 mls @ 200 mls/hr IVPB BID REPLACED BY [facility] Last Admin: 09/07/16 09:27 Dose: 200 mls/hr Aztreonam 1 gm/ Dextrose 50 mls @ 100 mls/hr IVPB Q8H-IV REPLACED BY [facility] Last Admin: 09/07/16 11:15 Dose: 100 mls/hr Vancomycin HCl (Vancomycin (Pre-Docked)) 250 mls @ 250 mls/hr IVPB BID REPLACED BY [facility] Last Admin: 09/07/16 10:14 Dose: 250 mls/hr Levetiracetam (Keppra Injection -) 500 mg IVPB BID REPLACED BY [facility] Last Admin: 09/07/16 11:16 Dose: 500 mg Phenobarbital (Phenobarbital Injection -) 40 mg IVPB DAILY REPLACED BY [facility] Last Admin: 09/07/16 11:16 Dose: 40 mg Phenobarbital (Phenobarbital Injection -) 60 mg IVPB HS REPLACED BY [facility] Last Admin: 09/07/16 01:29 Dose: 60 mg - Objective Vital Signs: Vital Signs Temperature 98.4 F 09/07/16 11:00 Pulse Rate 73 09/07/16 11:00 Respiratory Rate 18 09/07/16 11:00 Blood Pressure 93/62 09/07/16 11:00 O2 Sat by Pulse Oximetry (%) 96 09/07/16 09:00 Constitutional: Yes: Calm, Mild Distress Cardiovascular: Yes: Regular Rate and Rhythm Respiratory: Yes: Regular, Poor Air Entry Gastrointestinal: Yes: Normal Bowel Sounds, Soft Musculoskeletal: Yes: Other Extremities: Yes: Other Neurological: Yes: Alert, Other Labs: CBC, BMP 09/07/16 05:35 09/07/16 05:35 INR, PTT INR 1.33 (0.82-1.09) H 09/07/16 05:35 Assessment/Plan 21yM with PMH 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 He is being admitted for sepsis. Sepsis secondary to pneumonia vs acute abdominal pathology Abdominal distention/volvulus anemia PU stage 2 sacrum seizure disorder functional quadriplegia plan will start patient on aztreonam vanco monitor abd surgery consult gi consult npo hydration we will connect the g tube to drainage bag
--- NOTE | 2016-09-07 18:25 | PN ---
Physical Exam: SUBJECTIVE: Patient seen and examined. He is awake, he appears comfortable. He is itching his GT site to excoriation OBJECTIVE: Vital Signs Period Temp Pulse Resp BP Sys/Begum Pulse Ox Last 24 Hr 96.6 F-98.4 F 73-87 18-20 88-102/46-73 95-96 PE Neuro: non verbal, awake, alert, + moan screams Pulm: diminished CV: s1 s2 rrr no mrg Abd: distended + GT with excoriated edges, + drainage mucus membrane red : rectal tube no melena noted Ex: warm, no edema, Laboratory Results - last 24 hr 09/07/16 09/07/16 09/07/16 05:35 05:35 05:35 WBC 7.2 D RBC 3.15 L Hgb 8.0 L Hct 26.0 L MCV 82.6 MCHC 30.6 L RDW 15.2 Plt Count 302 D MPV 9.3 Neutrophils % 83.9 H Lymphocytes % 9.6 D Monocytes % 5.3 Eosinophils % 0.9 D Basophils % 0.3 INR 1.33 H Sodium 136 Potassium 3.4 L Chloride 110 H Carbon Dioxide 21 Anion Gap 5 L BUN 11 D Creatinine 0.3 L Creat Clearance w eGFR > 60 Random Glucose 83 Calcium 7.1 L Total Bilirubin 0.3 AST 26 D ALT 25 D Alkaline Phosphatase 70 D Total Protein 5.3 L D Albumin 2.2 L D Valproic Acid 09/07/16 05:35 WBC RBC Hgb Hct MCV MCHC RDW Plt Count MPV Neutrophils % Lymphocytes % Monocytes % Eosinophils % Basophils % INR Sodium Potassium Chloride Carbon Dioxide Anion Gap BUN Creatinine Creat Clearance w eGFR Random Glucose Calcium Total Bilirubin AST ALT Alkaline Phosphatase Total Protein Albumin Valproic Acid < 3.000 L Active Medications Generic Name Dose Route Start Last Admin Trade Name Freq PRN Reason Stop Dose Admin Fluticasone Propionate 1 spray 09/06/16 10:00 09/07/16 11:16 Flonase - NS 1 spray BID TRUDY Administration Dextrose/Sodium Chloride 1,000 mls @ 100 mls/hr 09/06/16 08:00 09/07/16 09:27 D5-Ns - IV 100 mls/hr ASDIR TRUDY Administration Metronidazole 100 mls @ 100 mls/hr 09/06/16 12:45 09/07/16 18:22 Flagyl 500mg Premixed Ivpb - IVPB 100 mls/hr Q8H-IV TRUDY Administration Pantoprazole Sodium 100 mls @ 200 mls/hr 09/06/16 22:00 09/07/16 09:27 Protonix 40mg Ivpb (Pre-Docked) IVPB 200 mls/hr BID TRUDY Administration Aztreonam 1 gm/ Dextrose 50 mls @ 100 mls/hr 09/06/16 18:15 09/07/16 18:22 IVPB 100 mls/hr Q8H-IV TRUDY Administration Vancomycin HCl 250 mls @ 250 mls/hr 09/06/16 22:00 09/07/16 10:14 Vancomycin (Pre-Docked) IVPB 250 mls/hr BID TRUDY Administration Levetiracetam 500 mg 09/06/16 22:00 09/07/16 11:16 Keppra Injection - IVPB 500 mg BID TRUDY Administration Phenobarbital 40 mg 09/07/16 10:00 09/07/16 11:16 Phenobarbital Injection - IVPB 40 mg DAILY TRUDY Administration Phenobarbital 60 mg 09/06/16 22:00 09/07/16 01:29 Phenobarbital Injection - IVPB 60 mg HS TRUDY Administration Assessment: 21 year old male with PMH 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 Plan: 1. Sepsis secondary to pneumonia vs acute abdominal pathology - Cont Aztreonam/Flagyl - Cont vanco likely until tomorrow - Leukocytosis improved - Discussed with ID, appreciate input 2. Abdominal distention/volvulus - Abd still with distention - Decompressed at bedside - Connect to drainage bag - Will hold on on feedings and observe distention - Surgery consulted for diverting colostomy with j tube placement - GI following 3. Anemia - No further signs of rectal bleeding - Hgb stable - Will monitor 4. PU stage 2 sacrum - Allevyn dressing 5. Seizure disorder - Cont home keppra dose - Cont phenobarbital doses 6. Functional quadriplegia - pt is unable to feed self, turn or toilet independently, dependent on staff for all ADLS - hi risk for aspiration pneumonia, pressure ulcers. - cont to provide supportive care 7. DVT PPX - BOBBY stockings and SCD, hold chemical AC this time concern for bleed, surgical eval pending 8. FEN - Hypokalemia: replete x1 20meq - NS @ 100cc/hr - Hold tube feeding due to abd distention, copy editor consulted for gt feed calculation Visit type - Emergency Visit Emergency Visit: Yes ED Registration Date: 09/06/16 Care time: The patient presented to the Emergency Department on the above date and was hospitalized for further evaluation of their emergent condition. - New Patient This patient is new to me today: Yes Date on this admission: 09/07/16 - Critical Care Critical Care patient: No - Discharge Referral Referred to [facility] Med P.C.: No
[2016-09-07] MEDS ORDERED: POTASSIUM CHLORIDE 40 MEQ/30 ML UNIT DOSE CUP GT ONE (18:45)
--- NOTE | 2016-09-07 18:53 | PN ---
GI Progress Note Subjective: GI NOte: NO vomiting but remains distended. G tube is only on gravity drainage. Have again asked for low intermittent Gomco suctioning. Anticipate consult with Dr Spain. I will ask that he discuss a diverting colostomy and a surgical feeding J tube placement with family. I called Trini his sister and HCP and await a return call. - Objective Vital Signs: Vital Signs Temperature 98.4 F 09/07/16 11:00 Pulse Rate 73 09/07/16 11:00 Respiratory Rate 18 09/07/16 11:00 Blood Pressure 93/62 09/07/16 11:00 O2 Sat by Pulse Oximetry (%) 96 09/07/16 09:00 CBC,CMP WBC 7.2 K/mm3 (4.0-10.0) D 09/07/16 05:35 RBC 3.15 M/mm3 (4.00-5.60) L 09/07/16 05:35 Hgb 8.0 GM/dL (11.7-16.9) L 09/07/16 05:35 Hct 26.0 % (35.4-49) L 09/07/16 05:35 MCV 82.6 fl (80-96) 09/07/16 05:35 MCHC 30.6 g/dl (32.0-35.9) L 09/07/16 05:35 RDW 15.2 % (11.9-15.9) 09/07/16 05:35 Plt Count 302 K/MM3 (134-434) D 09/07/16 05:35 MPV 9.3 fl (7.5-11.1) 09/07/16 05:35 Neutrophils % 83.9 % (42.8-82.8) H 09/07/16 05:35 Lymphocytes % 9.6 % (8-40) D 09/07/16 05:35 Monocytes % 5.3 % (3.8-10.2) 09/07/16 05:35 Eosinophils % 0.9 % (0-4.5) D 09/07/16 05:35 Basophils % 0.3 % (0-2.0) 09/07/16 05:35 Band Neutrophils 13.0 % (0-10) H 09/06/16 01:00 Polychromasia 1+ 09/06/16 01:00 Anisocytosis 1+ 09/06/16 01:00 Spherocytes 1+ 09/06/16 01:00 Sodium 136 mmol/L (136-145) 09/07/16 05:35 Potassium 3.4 mmol/L (3.5-5.1) L 09/07/16 05:35 Chloride 110 mmol/L (98-107) H 09/07/16 05:35 Carbon Dioxide 21 mmol/L (21-32) 09/07/16 05:35 Anion Gap 5 (8-16) L 09/07/16 05:35 BUN 11 mg/dL (7-18) D 09/07/16 05:35 Creatinine 0.3 mg/dL (0.7-1.3) L 09/07/16 05:35 Creat Clearance w eGFR > 60 (>60) 09/07/16 05:35 POC Glucometer 119.15330 UNITS (()) 09/06/16 17:52 Random Glucose 83 mg/dL (74-106) 09/07/16 05:35 Lactic Acid 1.208 mmol/L (0.4-2.0) 09/06/16 04:23 Calcium 7.1 mg/dL (8.5-10.1) L 09/07/16 05:35 Phosphorus 1.5 mg/dL (2.5-4.9) L D 09/06/16 07:40 Magnesium 2.1 mg/dL (1.8-2.4) 09/06/16 07:40 Total Bilirubin 0.3 mg/dL (0.2-1.0) 09/07/16 05:35 AST 26 U/L (15-37) D 09/07/16 05:35 ALT 25 U/L (12-78) D 09/07/16 05:35 Alkaline Phosphatase 70 U/L (45-117) D 09/07/16 05:35 Total Protein 5.3 g/dl (6.4-8.2) L D 09/07/16 05:35 Albumin 2.2 g/dl (3.4-5.0) L D 09/07/16 05:35 Constitutional: Anxious Gastrointestinal Inspection: Yes: Distention ...Auscultate: Yes: Hyperactive Bowel Sounds ...Palpate: Yes: Soft, Other (nontender) ...Percussion: Yes: Tympanitic Labs: CBC, BMP 09/07/16 05:35 09/07/16 05:35 INR, PTT INR 1.33 (0.82-1.09) H 09/07/16 05:35 Assessment/Plan Distension due to recurring sigmoid volvulus and gastric outlet obstruction leading to aspiration pneumonia. Will discuss advised interventions with Dr Spain when he consults. Problem List - Problems (1) Sigmoid volvulus Code(s): K56.2 - VOLVULUS (2) Stercoral ulcer of rectum Code(s): K62.6 - ULCER OF ANUS AND RECTUM (3) Gastric hourglass stricture or stenosis Code(s): K31.2 - HOURGLASS STRICTURE AND STENOSIS OF STOMACH (4) Sigmoid polyp Code(s): D12.5 - BENIGN NEOPLASM OF SIGMOID COLON (5) H/O Mackenzie-Guillen syndrome Code(s): Z87.19 - PERSONAL HISTORY OF OTHER DISEASES OF THE DIGESTIVE SYSTEM
[2016-09-07] MEDS ORDERED: POTASSIUM PHOSPHATE 15 MM in DEXTROSE 5%-WATER - 250 ML IVPB ONE (19:00)
[2016-09-08] MEDS: AZTREONAM 1 GM in DEXTROSE 5%-WATER - 50 ML IVPB SCH ×3 (02:05→17:55)
[2016-09-08] MEDS: METRONIDAZOLE 500 MG PREMIXED 100 ML IVPB SCH ×3 (02:05→17:54)
[2016-09-08] MEDS: DEXTROSE 5%-NORMAL SALINE 1,000 ML IV SCH ×2 (06:01→10:02)
[2016-09-08 08:16] LABS: BASOPHIL 0.9 % (0-2.0); EOSINOPHIL 2.1 % (0-4.5); MCH 25.7 pg (25.7-33.7); MCHC 31.3 g/dl (32.0-35.9); MEAN CELL VOLUME 82.3 fl (80-96); MEAN PLT VOLUME 9.5 fl (7.5-11.1); NEUTROPHILS 71.8 % (42.8-82.8); PLATELET COUNT 365 K/MM3 (134-434); WHITE BLOOD COUNT 4.6 K/mm3 (4.0-10.0)
[2016-09-08 09:10] LABS: ALBUMIN 2.3 g/dl (3.4-5.0); ALK PHOS 66 U/L (45-117); ANION GAP 6 (8-16); BILIRUBIN,TOTAL 0.3 mg/dL (0.2-1.0); CALCIUM 7.1 mg/dL (8.5-10.1); CO2 21 mmol/L (21-32); CREATININE 0.2 mg/dL (0.7-1.3); GLUCOSE,RANDOM 90 mg/dL (74-106); PHOSPHOROUS 2.7 mg/dL (2.5-4.9); SGPT/ALT 23 U/L (12-78); TOT PROT 5.6 g/dl (6.4-8.2)
[2016-09-08] MEDS ORDERED: PT OWN MED DRAWER 7, Y5N ONE ×3 (09:16→16:43)
[2016-09-08 09:20] LABS: SGOT/AST 34 U/L (15-37)
[2016-09-08] MEDS: levETIRAcetam 500 MG/5 ML INJECTION VIAL IVPB SCH ×2 (09:32→22:18)
[2016-09-08] MEDS: VANCOMYCIN 1 GRAM (PRE-DOCKED) 250 ML IVPB SCH ×2 (09:32→22:09)
[2016-09-08] MEDS: PANTOPRAZOLE SODIUM 100 ML IVPB SCH ×2 (09:32→22:17)
[2016-09-08] MEDS: PHENobarbital SODIUM 65 MG/1 ML VIAL IVPB SCH ×2 (10:45→22:17)
--- NOTE | 2016-09-08 13:00 | CONSULT ---
Consult Consult Specialty:: surgery Reason for Consultation:: sigmoid volvulus - History of Present Illness Chief Complaint: admitted for aspiration PNA History of Present Illness: pt came to hospital approx 3 days ago with hx of fever to 105. came here had CT showing PNA, fever 103 and WBC 21. He has hx of sigmoid volvulus but currently has rectal tube draining stool. he has a G tube for feeding. 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 biopsy benign. hx of pulling out his G tubes. he is nonverbal/chronic instutionalized. he was coughin when I saw him. 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, Other (Down Syndrome, autistic) Pulmonary: Yes: Pneumonia Gastrointestinal: Yes: Constipation, GI Bleed (rectal erosion bleed 05/03), Other (chronic pseudoobstruction, G-tube feedings) - Past Surgical History Past Surgical History: Yes: Colonoscopy Additional Surgical History: Adria G tube insertion after repeated avulsions - Alcohol/Substance Use Hx Alcohol Use: No - Smoking History Smoking history: Never smoked Have you smoked in the past 12 months: No - Social History Usual Living Arrangement: Assisted Living ADL: Support Services History of Recent Travel: No Home Medications - Allergies Allergies/Adverse Reactions: Allergies Allergy/AdvReac Type Severity Reaction Status Date / Time Penicillins Allergy Verified 09/06/16 02:28 shellfish derived Allergy Verified 09/06/16 02:28 - Home Medications Home Medications: Ambulatory Orders Melatonin 6 mg GT HS 12/03/13 Levetiracetam [Keppra Oral Solution -] 500 mg GT BID 03/27/15 Polyethylene Glycol 3350 [Glycolax] 17 gm GT Q12H 03/27/15 Acetaminophen [Tylenol] 650 mg GT Q4H PRN 04/11/15 Phenobarbital Liquid - [Phenobarbital Liquid 20 MG/5 ML -] 40 mg GT AM 04/11/15 Phenobarbital Liquid - [Phenobarbital Liquid 20 MG/5 ML -] 60 mg GT HS 04/11/15 Fluticasone Prop 0.05% Nasal [Flonase -] 1 - 2 spray NS BID 03/10/16 Ranitidine Oral Solution [Zantac Oral Solution -] 150 mg GT Q12H 03/10/16 Simethicone Liquid [Mylicon Liquid -] 40 mg GT TID 03/10/16 Sucralfate Oral Suspension [Carafate Oral Suspension -] 1 gm GT TID 03/10/16 Loperamide HCl [Loperamide] 2 mg GT Q4H PRN 06/02/16 Medium Chain Triglycerides [Mct Oil] 15 ml GT TID 06/02/16 Silver Sulfadiazine 1% Top Cr [Silvadene -] 1 applic TP BID jar 06/05/16 Multivits W-Min/Ferrous Gluc [Centrum Multivit-Mineral Liq] 9 mg GT DAILY Bisacodyl 1 mg RC Q12H PRN 09/06/16 Furosemide [Lasix -] 10 mg PO DAILY 09/06/16 Review of Systems - Review of Systems Constitutional: reports: Fever Eyes: reports: Other (unable to obtain) HENT: reports: Other (unable to obtain) Neck: reports: Other (unable to obtain) Cardiovascular: reports: Other (unable to obtain) Respiratory: reports: Cough Gastrointestinal: reports: Bloating, Other (unable to obtain) Genitourinary: reports: Other (unable to obtain) Breasts: reports: Other (unable to obtain) Musculoskeletal: reports: Other (unable to obtain) Integumentary: reports: Other (unable to obtain) Neurological: reports: Other (unable to obtain) Endocrine: reports: Other (unable to obtain) Hematology/Lymphatic: reports: Other (unable to obtain) Psychiatric: reports: Other (unable to obtain) Physical Exam Vital Signs: Vital Signs Temperature 97.4 F L 09/08/16 06:00 Pulse Rate 75 09/08/16 06:00 Respiratory Rate 20 09/08/16 06:00 Blood Pressure 106/68 09/08/16 06:00 O2 Sat by Pulse Oximetry (%) 96 09/07/16 21:00 Constitutional: Yes: Well Nourished, No Distress Eyes: Yes: Conjunctiva Clear HENT: Yes: Atraumatic Neck: Yes: Supple Cardiovascular: Yes: Regular Rate and Rhythm Respiratory: Yes: Cough Gastrointestinal: Yes: Soft, Distention, Other (g tube drained 200cc/12 hrs of clear fluid. rectal tube draining alot of liquid stool.) ...Rectal Exam: Yes: Deferred Renal/: No: CVA Tenderness - Left, CVA Tenderness - Right Breast(s): No: Nipple Inversion, Skin Changes Musculoskeletal: No: Back Pain, Joint Stiffness Extremities: No: Calf Tenderness, Erythema Neurological: Yes: Other (does not follow commands) Psychiatric: Yes: Other (does not follow commands) Labs: CBC, BMP 09/08/16 06:30 09/08/16 06:30 Imaging - Results Cat Scan: Report Reviewed, Image Reviewed Problem List - Problems (1) Abdominal distention Code(s): R14.0 - ABDOMINAL DISTENSION (GASEOUS) (2) Down's syndrome Code(s): Q90.9 - DOWN SYNDROME, UNSPECIFIED (3) Pneumonia Code(s): J18.9 - PNEUMONIA, UNSPECIFIED ORGANISM Qualifiers: Pneumonia type: due to unspecified organism Laterality: right Lung location: lower lobe of lung Qualified Code(s): J18.9 - Pneumonia, unspecified organism (4) Sigmoid volvulus Assessment/Plan: case d/w Dr. Perez at length plan will be for exlap, sigmoid resection and creation of end colostomy. Will confirm at time of laparotomy whether patient has true antral stricture/ blockage vs kinkage of stomach from G tube. if stricture will place J tube and keep G tube for decompression. If no stricture will attempt to better pexy stomach to relieve gastric outlet obstruction. also there is a change his sigmoid partial obstruction is causing this problem. 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 I hope to not have to put in J tube but will d/w pts HCP the possibility of such a treatment. given his severe PNA on CT will elect to give him a couple days to recover from that to better optimize him from pulmonary standpoint. Will plan on operating after Xmas. please try to feed him thru G tube slowly and check residuals frequently. if high residual place back on suction. Code(s): K56.2 - VOLVULUS (5) Seizure Code(s): R56.9 - UNSPECIFIED CONVULSIONS
[2016-09-08] MEDS: FLUTICASONE PROP 0.05% 16 GM NASAL SPRAY NS SCH ×2 (13:43→22:28)
[2016-09-08] MEDS: SILVER SULFADIAZINE 1% TOP CREAM 50 GM JAR TP SCH (13:43)
--- NOTE | 2016-09-08 17:06 | PN ---
Physical Exam: SUBJECTIVE: Patient seen and examined. He appears calm. No acute events noted GT drain: 250cc overnight OBJECTIVE: Vital Signs Period Temp Pulse Resp BP Sys/Begum Pulse Ox Last 24 Hr 97.4 F-98.2 F 75-82 18-20 106-118/61-75 96 PE Neuro: non verbal, awake, alert Pulm: diminished CV: s1 s2 rrr no mrg Abd: distended + GT with excoriated edges, + drainage mucus membrane red, GT drainage yellow straw clear colored : rectal tube brown stool Ex: warm, no edema Laboratory Results - last 24 hr 09/08/16 09/08/16 06:30 06:30 WBC 4.6 D RBC 3.27 L Hgb 8.4 L Hct 26.9 L MCV 82.3 MCHC 31.3 L RDW 15.0 Plt Count 365 D MPV 9.5 Neutrophils % 71.8 Lymphocytes % 16.2 D Monocytes % 9.0 Eosinophils % 2.1 D Basophils % 0.9 Sodium 138 Potassium 3.1 L Chloride 111 H Carbon Dioxide 21 Anion Gap 6 L BUN 7 D Creatinine 0.2 L D Creat Clearance w eGFR > 60 Random Glucose 90 Calcium 7.1 L Phosphorus 2.7 D Total Bilirubin 0.3 AST 34 D ALT 23 Alkaline Phosphatase 66 Total Protein 5.6 L Albumin 2.3 L Active Medications Generic Name Dose Route Start Last Admin Trade Name Freq PRN Reason Stop Dose Admin Fluticasone Propionate 1 spray 09/06/16 10:00 09/08/16 13:43 Flonase - NS 1 spray BID TRUDY Administration Metronidazole 100 mls @ 100 mls/hr 09/06/16 12:45 09/08/16 09:32 Flagyl 500mg Premixed Ivpb - IVPB 100 mls/hr Q8H-IV TRUDY Administration Pantoprazole Sodium 100 mls @ 200 mls/hr 09/06/16 22:00 09/08/16 09:32 Protonix 40mg Ivpb (Pre-Docked) IVPB 200 mls/hr BID TRUDY Administration Aztreonam 1 gm/ Dextrose 50 mls @ 100 mls/hr 09/06/16 18:15 09/08/16 10:01 IVPB 100 mls/hr Q8H-IV TRUDY Administration Vancomycin HCl 250 mls @ 250 mls/hr 09/06/16 22:00 09/08/16 09:32 Vancomycin (Pre-Docked) IVPB 250 mls/hr BID TRUDY Administration Potassium Chloride 20 meq/ 1,010 mls @ 84 mls/hr 09/08/16 16:00 Amino Acids IVPB Q12H TRUDY Levetiracetam 500 mg 09/06/16 22:00 09/08/16 09:32 Keppra Injection - IVPB 500 mg BID TRUDY Administration Phenobarbital 40 mg 09/07/16 10:00 09/08/16 10:45 Phenobarbital Injection - IVPB 40 mg DAILY TRUDY Administration Phenobarbital 60 mg 09/06/16 22:00 09/07/16 22:27 Phenobarbital Injection - IVPB 60 mg HS TRUDY Administration Silver Sulfadiazine 1 applic 09/08/16 10:15 09/08/16 13:43 Silvadene - TP 1 applic DAILY TRUDY Administration Assessment: 21 year old male with PMH 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 Plan: 1. Sepsis secondary to pneumonia vs acute abdominal pathology - Cont Aztreonam/Flagyl - Cont vanco - ID following 2. Abdominal distention from sigmoid volvulus vs obstruction - Plan for exlap sigmoid resection and creation of end colostomy, J tube placement pending presence of stricture with G tube retention as drain - D/w surgery, likely monday - Will hold on feeding - Cont draining - Start Clinimix w/ 20meq - Monitor BMP - GI following 3. Anemia - No further signs of rectal bleeding - Hgb stable - Will monitor 4. PU stage 2 sacrum - Allevyn dressing 5. Seizure disorder - Cont home keppra dose - Cont phenobarbital doses 6. Functional quadriplegia - pt is unable to feed self, turn or toilet independently, dependent on staff for all ADLS - hi risk for aspiration pneumonia, pressure ulcers. - cont to provide supportive care 7. DVT PPX - BOBBY stockings and SCD, hold chemical AC this time concern for bleed, surgical eval pending 8. FEN - Clinimix 84 with 20meq - Hold tube feeding due to abd distention, if restart feeds pending on output, will start perative Visit type - Emergency Visit Emergency Visit: Yes ED Registration Date: 09/06/16 Care time: The patient presented to the Emergency Department on the above date and was hospitalized for further evaluation of their emergent condition. - New Patient This patient is new to me today: No - Critical Care Critical Care patient: No - Discharge Referral Referred to [facility] No
[2016-09-08] MEDS: POTASSIUM CHLORIDE 20 MEQ in AMINO ACIDS 4.25%/D5W 1,000 ML IVPB SCH (18:37)
[2016-09-09] MEDS: METRONIDAZOLE 500 MG PREMIXED 100 ML IVPB SCH ×3 (01:04→19:01)
[2016-09-09] MEDS: AZTREONAM 1 GM in DEXTROSE 5%-WATER - 50 ML IVPB SCH ×3 (01:07→18:58)
[2016-09-09] MEDS: POTASSIUM CHLORIDE 20 MEQ in AMINO ACIDS 4.25%/D5W 1,000 ML IVPB SCH ×2 (06:35→16:39)
[2016-09-09 07:21] LABS: BASOPHIL 1.2 % (0-2.0); EOSINOPHIL 2.8 % (0-4.5); MCH 26.1 pg (25.7-33.7); MCHC 32.2 g/dl (32.0-35.9); MEAN CELL VOLUME 80.9 fl (80-96); MEAN PLT VOLUME 8.7 fl (7.5-11.1); NEUTROPHILS 64.7 % (42.8-82.8); PLATELET COUNT 386 K/MM3 (134-434); RDW 14.7 % (11.9-15.9); WHITE BLOOD COUNT 3.8 K/mm3 (4.0-10.0)
[2016-09-09 07:47] LABS: ANION GAP 5 (8-16); BILIRUBIN,TOTAL 0.2 mg/dL (0.2-1.0); CALCIUM 7.2 mg/dL (8.5-10.1); CO2 24 mmol/L (21-32); CREATININE 0.2 mg/dL (0.7-1.3); GLUCOSE,RANDOM 87 mg/dL (74-106); MAGNESIUM 2.1 mg/dL (1.8-2.4); SGOT/AST 25 U/L (15-37); SGPT/ALT 21 U/L (12-78); TOT PROT 5.1 g/dl (6.4-8.2)
[2016-09-09 07:48] LABS: ALK PHOS 59 U/L (45-117)
[2016-09-09] MEDS: PANTOPRAZOLE SODIUM 100 ML IVPB SCH ×2 (09:21→22:42)
[2016-09-09] MEDS: PHENobarbital SODIUM 65 MG/1 ML VIAL IVPB SCH ×2 (10:01→22:43)
[2016-09-09] MEDS ORDERED: PT OWN MED DRAWER 7, Y5N ONE ×2 (10:51→18:56)
[2016-09-09] MEDS: levETIRAcetam 500 MG/5 ML INJECTION VIAL IVPB SCH ×2 (11:00→22:43)
[2016-09-09] MEDS: SILVER SULFADIAZINE 1% TOP CREAM 50 GM JAR TP SCH (11:53)
[2016-09-09] MEDS: FLUTICASONE PROP 0.05% 16 GM NASAL SPRAY NS SCH ×2 (11:53→23:12)
--- NOTE | 2016-09-09 12:08 | PN ---
Progress Note, Physician Chief Complaint: no new issues History of Present Illness: attempted to reach his HCP/alyce with no response yet. patient on clinimix. Gtube on suction and rectal tube in place. xray shows mild improvement but still distended. - Current Medication List Current Medications: Active Medications Fluticasone Propionate (Flonase -) 1 spray NS BID [facility] Last Admin: 09/09/16 11:53 Dose: 1 spray Metronidazole (Flagyl 500mg Premixed Ivpb -) 100 mls @ 100 mls/hr IVPB Q8H-IV TRUDY Last Admin: 09/09/16 11:50 Dose: 100 mls/hr Pantoprazole Sodium (Protonix 40mg Ivpb (Pre-Docked)) 100 mls @ 200 mls/hr IVPB BID TRUYD Last Admin: 09/09/16 09:21 Dose: 200 mls/hr Aztreonam 1 gm/ Dextrose 50 mls @ 100 mls/hr IVPB Q8H-IV TRUDY Last Admin: 09/09/16 01:07 Dose: 100 mls/hr Vancomycin HCl (Vancomycin (Pre-Docked)) 250 mls @ 250 mls/hr IVPB BID TRUDY Last Admin: 09/08/16 22:09 Dose: 250 mls/hr Potassium Chloride 20 meq/ (Amino Acids) 1,010 mls @ 84 mls/hr IVPB Q12H TRUDY Last Admin: 09/09/16 06:35 Dose: 84 mls/hr Levetiracetam (Keppra Injection -) 500 mg IVPB BID [facility] Last Admin: 09/09/16 11:00 Dose: 500 mg Phenobarbital (Phenobarbital Injection -) 40 mg IVPB DAILY TRUDY Last Admin: 09/09/16 10:01 Dose: 40 mg Phenobarbital (Phenobarbital Injection -) 60 mg IVPB HS TRUDY Last Admin: 09/08/16 22:17 Dose: 60 mg Silver Sulfadiazine (Silvadene -) 1 applic TP DAILY [facility] Last Admin: 09/09/16 11:53 Dose: 1 applic - Objective Vital Signs: Vital Signs Temperature 97.7 F 09/09/16 05:43 Pulse Rate 78 09/09/16 05:43 Respiratory Rate 20 09/09/16 05:43 Blood Pressure 112/60 09/09/16 05:43 O2 Sat by Pulse Oximetry (%) 96 09/08/16 20:16 Constitutional: Yes: No Distress, Calm Gastrointestinal: Yes: Soft, Distention. No: Tenderness Labs: CBC, BMP 09/09/16 06:30 09/09/16 06:30 INR, PTT INR 1.33 (0.82-1.09) H 09/07/16 05:35 Problem List - Problems (1) Abdominal distention Code(s): R14.0 - ABDOMINAL DISTENSION (GASEOUS) (2) Down's syndrome Code(s): Q90.9 - DOWN SYNDROME, UNSPECIFIED (3) Pneumonia Code(s): J18.9 - PNEUMONIA, UNSPECIFIED ORGANISM Qualifiers: Pneumonia type: due to unspecified organism Laterality: right Lung location: lower lobe of lung Qualified Code(s): J18.9 - Pneumonia, unspecified organism (4) Sigmoid volvulus Assessment/Plan: plan to operate on MondaySep 13 at 9am. await callback from HCP, his sister Alyce to d/w her and get consent hopefully this will be enough time for his PNA to improve to decrease risk of postop pulm complications operation will be exlap, sigmoid resection and creation colostomy. will then examine stomach. if he has antral stricture/mass will place J tube. If he has acute angulation causing gastric outlet obstruction will do gastropexy. ideally will just go sigmoid resection. I don't think he will have stricture of antrum because he has been getting TF okay. I think he aspirated in part because of the distal obstruction from intermittent chronic volvulus. Code(s): K56.2 - VOLVULUS (5) Seizure Code(s): R56.9 - UNSPECIFIED CONVULSIONS
[2016-09-09] MEDS: VANCOMYCIN 1 GRAM (PRE-DOCKED) 250 ML IVPB SCH ×2 (13:34→22:42)
--- NOTE | 2016-09-09 16:56 | PN ---
GI Progress Note Subjective: GI NOte: Dr Spain's consultation is greatly appreciated. Devan's abdomen is less distended despite the fact that his rectal tube has fallen out. I will leave it out and attempt G tube feedings. I was able to speak with Devan's health care proxy, his sister Trini. She is in a plane about to fly to [place] for the holiday. I explained Devan's situation and the need for a colostomy and jejunostomy feeding tube as well as some gastric intervention which may be amenable to surgical intervention ( detorting a gastric twist/volvulus caused by G tube traction). If not then I agree with Dr. Spain that a G tube may need to be left in place for drainage to prevent repeated aspirations. Trini is on agreement with my proposed surgical interventions. I have given her Dr Spain's office number and asked that she call him [email or web address] to given surgical consent. Trini's contacts are and email = [email or web address] ). - Objective Vital Signs: Vital Signs Temperature 97.2 F L 09/09/16 14:00 Pulse Rate 64 09/09/16 14:00 Respiratory Rate 20 09/09/16 14:00 Blood Pressure 105/65 09/09/16 14:00 O2 Sat by Pulse Oximetry (%) 96 09/08/16 20:16 Constitutional: Calm Gastrointestinal Inspection: Yes: Other (G tube excorations improved with mafenide. Reapplied and Telfa dressing applied.) ...Auscultate: Yes: Normoactive Bowel Sounds ...Palpate: Yes: Soft, Other (nontender) Labs: CBC, BMP 09/09/16 06:30 09/09/16 06:30 INR, PTT INR 1.33 (0.82-1.09) H 09/07/16 05:35 Assessment/Plan Will start NG feedings and hope for surgery next week. Problem List - Problems (1) Sigmoid volvulus Code(s): K56.2 - VOLVULUS (2) Stercoral ulcer of rectum Code(s): K62.6 - ULCER OF ANUS AND RECTUM (3) Gastric hourglass stricture or stenosis Code(s): K31.2 - HOURGLASS STRICTURE AND STENOSIS OF STOMACH (4) Sigmoid polyp Code(s): D12.5 - BENIGN NEOPLASM OF SIGMOID COLON (5) H/O Mackenzie-Guillen syndrome Code(s): Z87.19 - PERSONAL HISTORY OF OTHER DISEASES OF THE DIGESTIVE SYSTEM
--- NOTE | 2016-09-09 18:29 | PN ---
Physical Exam: SUBJECTIVE: Patient seen and examined. Rectal tube out. Currently, appears in no acute distress. OBJECTIVE: Vital Signs Period Temp Pulse Resp BP Sys/Begum Pulse Ox Last 24 Hr 97.2 F-97.9 F 64-78 20-20 102-112/60-65 96 PE Neuro: non verbal, awake, alert Pulm: diminished, no sob CV: s1 s2 rrr no mrg Abd: distended + GT with excoriated edges, + drainage mucus membrane red Ex: warm, no edema Laboratory Results - last 24 hr 09/09/16 09/09/16 06:30 06:30 WBC 3.8 L RBC 3.14 L Hgb 8.2 L Hct 25.4 L MCV 80.9 MCHC 32.2 RDW 14.7 Plt Count 386 MPV 8.7 Neutrophils % 64.7 Lymphocytes % 22.0 D Monocytes % 9.3 Eosinophils % 2.8 Basophils % 1.2 Sodium 136 Potassium 3.2 L Chloride 107 Carbon Dioxide 24 Anion Gap 5 L BUN 7 Creatinine 0.2 L Creat Clearance w eGFR > 60 Random Glucose 87 Calcium 7.2 L Magnesium 2.1 Total Bilirubin 0.2 D AST 25 D ALT 21 Alkaline Phosphatase 59 Total Protein 5.1 L Albumin 2.0 L Active Medications Generic Name Dose Route Start Last Admin Trade Name Freq PRN Reason Stop Dose Admin Fluticasone Propionate 1 spray 09/06/16 10:00 09/09/16 11:53 Flonase - NS 1 spray BID TRUDY Administration Metronidazole 100 mls @ 100 mls/hr 09/06/16 12:45 09/09/16 11:50 Flagyl 500mg Premixed Ivpb - IVPB 100 mls/hr Q8H-IV TRUDY Administration Pantoprazole Sodium 100 mls @ 200 mls/hr 09/06/16 22:00 09/09/16 09:21 Protonix 40mg Ivpb (Pre-Docked) IVPB 200 mls/hr BID TRUDY Administration Aztreonam 1 gm/ Dextrose 50 mls @ 100 mls/hr 09/06/16 18:15 09/09/16 12:54 IVPB 100 mls/hr Q8H-IV TRUDY Administration Vancomycin HCl 250 mls @ 250 mls/hr 09/06/16 22:00 09/09/16 13:34 Vancomycin (Pre-Docked) IVPB 250 mls/hr BID TRUDY Administration Potassium Chloride 20 meq/ 1,010 mls @ 84 mls/hr 09/08/16 16:00 09/09/16 16:39 Amino Acids IVPB 84 mls/hr Q12H TRUDY Administration Levetiracetam 500 mg 09/06/16 22:00 09/09/16 11:00 Keppra Injection - IVPB 500 mg BID TRUDY Administration Phenobarbital 40 mg 09/07/16 10:00 09/09/16 10:01 Phenobarbital Injection - IVPB 40 mg DAILY TRUDY Administration Phenobarbital 60 mg 09/06/16 22:00 09/08/16 22:17 Phenobarbital Injection - IVPB 60 mg HS TRUDY Administration Silver Sulfadiazine 1 applic 09/08/16 10:15 09/09/16 11:53 Silvadene - TP 1 applic DAILY TRUDY Administration Assessment: 21 year old male with PMH 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 Plan: 1. Sepsis secondary to pneumonia vs acute abdominal pathology - Cont Aztreonam/Flagyl - Cont Vanco 2. Abdominal distention from sigmoid volvulus vs obstruction - Plan for exlap sigmoid resection and creation of end colostomy, J tube placement pending presence of stricture with G tube retention as drain, surgery and GI in touch with daughter Jade - D/w surgery, procedure scheduled for Monday - Initiate Tube feeds, if tolerate then d/c clinimix 3. Anemia - No further signs of rectal bleeding - Will monitor 4. PU stage 2 sacrum - Allevyn dressing 5. Seizure disorder - Cont home keppra dose - Cont phenobarbital doses 6. Functional quadriplegia - pt is unable to feed self, turn or toilet independently, dependent on staff for all ADLS - hi risk for aspiration pneumonia, pressure ulcers. - cont to provide supportive care 7. DVT PPX - BOBBY stockings and SCD, hold chemical AC this time concern for bleed, surgical eval pending 8. FEN - Start GT feedings, start slow Visit type - Emergency Visit Emergency Visit: Yes ED Registration Date: 09/06/16 Care time: The patient presented to the Emergency Department on the above date and was hospitalized for further evaluation of their emergent condition. - New Patient This patient is new to me today: No - Critical Care Critical Care patient: No - Discharge Referral Referred to [facility] No
[2016-09-09] MEDS ORDERED: POTASSIUM CHLORIDE 40 MEQ/30 ML UNIT DOSE CUP GT ONE ×2 (18:44→22:45)
--- NOTE | 2016-09-09 23:37 | PN ---
Progress Note (short form) - Note Progress Note: This is a 21 year old male with a past medical history of down syndrome with severe MR, PEG, pyloric stricture, seizure disorder and recurrent volvulus ( most recently hospitalized 07/24-08/04 for same) who presents with fever and cough as per staff at [facility]. Pt was recently treated for influenza with tamiflu, last dose yesterday, as there was influenza at the facility. Pt was sent to the ED for evaluation of temperature of 105 at facility. Pt is nonverbal at baseline and information is obtained from bobbin handler, nurse at facility and medical records. ER course was notable for: (1) temp 103 (2) WBC 21.2 (3) Hgb 7.8 PAST MEDICAL HISTORY: Downs Syndrome w/ severe MR Seizures Autism PICA PAST SURGICAL HISTORY: PEG encoscopy and colonoscopy on last admission Social History: Smoking: none Alcohol: none Drugs: none Family History: unable to obtain, pt nonverbal Allergies Penicillins Allergy (Verified 09/06/16 02:28) shellfish derived Allergy (Verified 09/06/16 02:28) HOME MEDICATIONS: 3 Medication Instructions Recorded Melatonin 6 mg GT HS 12/03/13 Levetiracetam [Keppra Oral 500 mg GT BID 03/27/15 Solution -] Polyethylene Glycol 3350 [Glycolax] 17 gm GT BID 03/27/15 Acetaminophen [Tylenol] 650 mg GT Q4H PRN 04/11/15 Phenobarbital Liquid - 40 mg GT AM 04/11/15 [Phenobarbital Liquid 20 MG/5 ML -] Phenobarbital Liquid - 60 mg GT HS 04/11/15 [Phenobarbital Liquid 20 MG/5 ML -] Fluticasone Prop 0.05% Nasal 1 - 2 spray NS BID 03/10/16 [Flonase -] Ranitidine Oral Solution [Zantac 150 mg GT BID 03/10/16 Oral Solution -] Simethicone Liquid [Mylicon Liquid 40 mg GT TID 03/10/16 -] Sucralfate Oral Suspension 1 gm GT TID 03/10/16 [Carafate Oral Suspension -] Loperamide HCl [Loperamide] 2 mg GT BID PRN 06/02/16 Medium Chain Triglycerides [Mct 15 ml GT TID 06/02/16 Oil] Bisacodyl Suppository [Dulcolax 10 mg RC DAILY PRN #0 supp.rect 06/05/16 Suppository -] Silver Sulfadiazine 1% Top Cr 1 applic TP BID jar 06/05/16 [Silvadene -] Multivits W-Min/Ferrous Gluc 9 mg GT DAILY 07/20/16 [Centrum Multivit-Mineral Liq] Current Medications Fluticasone Propionate (Flonase -) 1 spray NS BID [facility] Last Admin: 09/10/16 10:47 Dose: 1 spray Metronidazole (Flagyl 500mg Premixed Ivpb -) 100 mls @ 100 mls/hr IVPB Q8H-IV [facility] Last Admin: 09/10/16 10:44 Dose: 100 mls/hr Pantoprazole Sodium (Protonix 40mg Ivpb (Pre-Docked)) 100 mls @ 200 mls/hr IVPB BID [facility] Last Admin: 09/10/16 10:44 Dose: 200 mls/hr Aztreonam 1 gm/ Dextrose 50 mls @ 100 mls/hr IVPB Q8H-IV [facility] Last Admin: 09/10/16 10:47 Dose: 100 mls/hr Vancomycin HCl (Vancomycin (Pre-Docked)) 250 mls @ 250 mls/hr IVPB BID [facility] Last Admin: 09/10/16 10:45 Dose: 250 mls/hr Potassium Chloride 20 meq/ (Amino Acids) 1,010 mls @ 84 mls/hr IVPB Q12H [facility] Last Admin: 09/10/16 04:11 Dose: 84 mls/hr Levetiracetam (Keppra Injection -) 500 mg IVPB BID [facility] Last Admin: 09/10/16 10:47 Dose: 500 mg Phenobarbital (Phenobarbital Injection -) 40 mg IVPB DAILY [facility] Last Admin: 09/10/16 10:47 Dose: 40 mg Phenobarbital (Phenobarbital Injection -) 60 mg IVPB HS [facility] Last Admin: 09/09/16 22:43 Dose: 60 mg Silver Sulfadiazine (Silvadene -) 1 applic TP DAILY [facility] Last Admin: 09/10/16 10:44 Dose: 1 applic AFVSS downs syndrome facies contracures arms/legs Cor: RSR, No murmurs, No gallops Lungs: Clear to P&A Abd: Soft, Normal bowel sounds, No organomegaly Ext:No significant edema ASSESSMENT/PLAN: 21yM with PMH 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 Being planned for volvulus surgery Elevated PTT-- mixing study in the past --correction with one and noncorrection with other factor VIII/XI,X , V all borderline low neg. lupus anticoagulant ? inhibitor effect---check anticardiolipin profile ? liver disease will monitor
[2016-09-10] MEDS: METRONIDAZOLE 500 MG PREMIXED 100 ML IVPB SCH ×3 (03:17→17:50)
[2016-09-10] MEDS: AZTREONAM 1 GM in DEXTROSE 5%-WATER - 50 ML IVPB SCH ×3 (03:17→17:50)
[2016-09-10] MEDS: POTASSIUM CHLORIDE 20 MEQ in AMINO ACIDS 4.25%/D5W 1,000 ML IVPB SCH ×2 (04:11→17:52)
--- NOTE | 2016-09-10 10:01 | PN ---
Progress Note (short form) - Note Progress Note: Seen in follow up. No significant events. Nurse concerned about abdominal distension - feed held. Meds reviewed. Current Medications Fluticasone Propionate (Flonase -) 1 spray NS BID [facility] Last Admin: 09/09/16 23:12 Dose: Not Given Metronidazole (Flagyl 500mg Premixed Ivpb -) 100 mls @ 100 mls/hr IVPB Q8H-IV [facility] Last Admin: 09/10/16 03:17 Dose: 100 mls/hr Pantoprazole Sodium (Protonix 40mg Ivpb (Pre-Docked)) 100 mls @ 200 mls/hr IVPB BID [facility] Last Admin: 09/09/16 22:42 Dose: 200 mls/hr Aztreonam 1 gm/ Dextrose 50 mls @ 100 mls/hr IVPB Q8H-IV [facility] Last Admin: 09/10/16 03:17 Dose: 100 mls/hr Vancomycin HCl (Vancomycin (Pre-Docked)) 250 mls @ 250 mls/hr IVPB BID [facility] Last Admin: 09/09/16 22:42 Dose: 250 mls/hr Potassium Chloride 20 meq/ (Amino Acids) 1,010 mls @ 84 mls/hr IVPB Q12H [facility] Last Admin: 09/10/16 04:11 Dose: 84 mls/hr Levetiracetam (Keppra Injection -) 500 mg IVPB BID [facility] Last Admin: 09/09/16 22:43 Dose: 500 mg Phenobarbital (Phenobarbital Injection -) 40 mg IVPB DAILY [facility] Last Admin: 09/09/16 10:01 Dose: 40 mg Phenobarbital (Phenobarbital Injection -) 60 mg IVPB HS [facility] Last Admin: 09/09/16 22:43 Dose: 60 mg Silver Sulfadiazine (Silvadene -) 1 applic TP DAILY [facility] Last Admin: 09/09/16 11:53 Dose: 1 applic On exam: Last Vital Signs Temp Pulse Resp BP Pulse Ox 97.6 F 68 20 101/68 99 09/10/16 07:02 09/10/16 07:02 09/10/16 07:02 09/10/16 07:02 09/09/16 21:00 Appears comfortable. Abdomen: Soft, non-tender, distended, but resonant througout. Chest: clear Neuro: Awake, contracted, as at baseline. CBC, BMP 09/09/16 06:30 09/09/16 06:30 INR, PTT INR 1.33 (0.82-1.09) H 09/07/16 05:35 Assessment: Mild coagulopathy (non-clinical) of unclear significance. Prior reported discordant heme labs (?mixes or not) Factor levels uniformly low, including Factor VIII, which make liver etiology less likely. High index of suspicion for artefact, with low suspicion for actual bleeding risk. But not unreasonable to empirically give FFP pre surgery. Would repeat mixing studies. Microcytic anemia, developed over past several months. Likely YVETTE - will check iron panel to confirm. Empiric IV iron reasonable.
[2016-09-10] MEDS: SILVER SULFADIAZINE 1% TOP CREAM 50 GM JAR TP SCH (10:44)
[2016-09-10] MEDS: PANTOPRAZOLE SODIUM 100 ML IVPB SCH ×2 (10:44→22:38)
[2016-09-10] MEDS: VANCOMYCIN 1 GRAM (PRE-DOCKED) 250 ML IVPB SCH (10:45)
[2016-09-10] MEDS: PHENobarbital SODIUM 65 MG/1 ML VIAL IVPB SCH ×2 (10:47→22:38)
[2016-09-10] MEDS: FLUTICASONE PROP 0.05% 16 GM NASAL SPRAY NS SCH ×2 (10:47→22:37)
[2016-09-10] MEDS: levETIRAcetam 500 MG/5 ML INJECTION VIAL IVPB SCH ×2 (10:47→22:38)
[2016-09-10] MEDS ORDERED: PT OWN MED DRAWER 7, Y5N ONE (10:54)
--- NOTE | 2016-09-10 14:28 | PN ---
GI Progress Note Subjective: GI NOte: NG feedings stopped because of gastric distension which resolved with venting of air. Minimal feeding residual was found. The resolution with venting indicates that the volvulus is not in play at this time. - Objective Vital Signs: Vital Signs Temperature 97.6 F 09/10/16 07:02 Pulse Rate 68 09/10/16 07:02 Respiratory Rate 20 09/10/16 07:02 Blood Pressure 101/68 09/10/16 07:02 O2 Sat by Pulse Oximetry (%) 99 09/09/16 21:00 CBC, [facility] 09/09/16 06:30 09/09/16 06:30 Constitutional: Calm Gastrointestinal Inspection: Yes: Distention ...Auscultate: Yes: Normoactive Bowel Sounds ...Palpate: Yes: Soft, Other (G tube dressing changed and mafenide and telfa applied) Labs: CBC, BMP 09/09/16 06:30 09/09/16 06:30 INR, PTT INR 1.33 (0.82-1.09) H 09/07/16 05:35 Assessment/Plan Will attempt feedings at 20cc/hr with instructions to vent air via G tube prn. If large residual or distension develop then will need to stop feedings until J tube is placed. Problem List - Problems (1) Sigmoid volvulus Code(s): K56.2 - VOLVULUS (2) Stercoral ulcer of rectum Code(s): K62.6 - ULCER OF ANUS AND RECTUM (3) Gastric hourglass stricture or stenosis Code(s): K31.2 - HOURGLASS STRICTURE AND STENOSIS OF STOMACH (4) Sigmoid polyp Code(s): D12.5 - BENIGN NEOPLASM OF SIGMOID COLON (5) H/O Mackenzie-Guillen syndrome Code(s): Z87.19 - PERSONAL HISTORY OF OTHER DISEASES OF THE DIGESTIVE SYSTEM
--- NOTE | 2016-09-10 18:38 | PN ---
Physical Exam: SUBJECTIVE: Patient seen and examined. per RN decompressed abd at length today, pt then with burping. No residuals noted. Feeds stopped, clinimix restarted. OBJECTIVE: Vital Signs Period Temp Pulse Resp BP Sys/Begum Pulse Ox Last 24 Hr 97.6 F-98.1 F 59-70 18-20 90-101/58-68 97-99 PE Neuro: non verbal, awake, alert Pulm: diminished, no sob CV: s1 s2 rrr no mrg Abd: distended, soft gt in place Ex: warm, no edema Laboratory Results - last 24 hr 09/10/16 10:53 Ferritin 23.786 Active Medications Generic Name Dose Route Start Last Admin Trade Name Freq PRN Reason Stop Dose Admin Fluticasone Propionate 1 spray 09/06/16 10:00 09/10/16 10:47 Flonase - NS 1 spray BID TRUDY Administration Metronidazole 100 mls @ 100 mls/hr 09/06/16 12:45 09/10/16 17:50 Flagyl 500mg Premixed Ivpb - IVPB 100 mls/hr Q8H-IV [facility] Administration Pantoprazole Sodium 100 mls @ 200 mls/hr 09/06/16 22:00 09/10/16 10:44 Protonix 40mg Ivpb (Pre-Docked) IVPB 200 mls/hr BID [facility] Administration Aztreonam 1 gm/ Dextrose 50 mls @ 100 mls/hr 09/06/16 18:15 09/10/16 17:50 IVPB 100 mls/hr Q8H-IV TRUD[facility] Administration Potassium Chloride 20 meq/ 1,010 mls @ 84 mls/hr 09/08/16 16:00 09/10/16 17:52 Amino Acids IVPB 84 mls/hr Q12H TRUDY Administration Levetiracetam 500 mg 09/06/16 22:00 09/10/16 10:47 Keppra Injection - IVPB 500 mg BID TRUDY Administration Phenobarbital 40 mg 09/07/16 10:00 09/10/16 10:47 Phenobarbital Injection - IVPB 40 mg DAILY TRUDY Administration Phenobarbital 60 mg 09/06/16 22:00 09/09/16 22:43 Phenobarbital Injection - IVPB 60 mg HS TRUDY Administration Silver Sulfadiazine 1 applic 09/08/16 10:15 09/10/16 10:44 Silvadene - TP 1 applic DAILY [facility]UDY Administration Assessment: 21 year old male with PMH 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 Plan: 1. Sepsis secondary to pneumonia vs acute abdominal pathology - Cont Aztreonam/Flagyl - ID seeing 2. Abdominal distention from sigmoid volvulus vs obstruction - Plan for exlap sigmoid resection and creation of end colostomy, J tube placement pending presence of stricture with G tube retention as drain, surgery and GI in touch with sister Jade - D/w surgery, procedure scheduled for Monday - Restart feeds at 20cc/ hr if distension reoccurs hold until J tube is placed 3. Mild coagulopathy - Factor levels low, less likely liver dz - Per heme, give FFP prior to surgery - Mixing studies inconclusive, repeat per heme - Appreciate heme consult 4. Anemia - Likely iron deficient - Iron studies pending - Give venofer as needed 5. PU stage 2 sacrum - Allevyn dressing 6. Seizure disorder - Cont home keppra dose - Cont phenobarbital doses 7. Functional quadriplegia - pt is unable to feed self, turn or toilet independently, dependent on staff for all ADLS - hi risk for aspiration pneumonia, pressure ulcers. - cont to provide supportive care 8. DVT PPX - BOBBY stockings and SCD, hold chemical AC this time concern for bleed, surgical eval pending Visit type - Emergency Visit Emergency Visit: Yes ED Registration Date: 09/06/16 Care time: The patient presented to the Emergency Department on the above date and was hospitalized for further evaluation of their emergent condition. - New Patient This patient is new to me today: No - Critical Care Critical Care patient: No - Discharge Referral Referred to [facility] Med [facility] No
[2016-09-10] MEDS: SIMETHICONE 40 MG/0.6 ML BOTTLE GT SCH (23:48)
[2016-09-11] MEDS: METRONIDAZOLE 500 MG PREMIXED 100 ML IVPB SCH ×3 (02:57→18:53)
[2016-09-11] MEDS: AZTREONAM 1 GM in DEXTROSE 5%-WATER - 50 ML IVPB SCH ×3 (02:57→18:06)
[2016-09-11] MEDS: POTASSIUM CHLORIDE 20 MEQ in AMINO ACIDS 4.25%/D5W 1,000 ML IVPB SCH ×2 (04:06→16:51)
[2016-09-11] MEDS: SIMETHICONE 40 MG/0.6 ML BOTTLE GT SCH ×4 (05:46→23:33)
[2016-09-11 06:36] LABS: SERUM IRON 18 ug/dL (38-169); TOTAL IRON BINDING CAPACITY 203 ug/dL (250-450); UIBC 185 ug/dL (111-343)
[2016-09-11] MEDS: levETIRAcetam 500 MG/5 ML INJECTION VIAL IVPB SCH ×2 (09:21→23:07)
[2016-09-11] MEDS: PANTOPRAZOLE SODIUM 100 ML IVPB SCH ×2 (09:21→23:07)
[2016-09-11] MEDS ORDERED: PT OWN MED DRAWER 7, Y5N ONE ×2 (09:23→17:18)
--- NOTE | 2016-09-11 10:36 | PN ---
Physical Exam: SUBJECTIVE: Patient seen and examined. Non-verbal, no acute events overnight OBJECTIVE: Vital Signs Period Temp Pulse Resp BP Sys/Begum Pulse Ox Last 24 Hr 97.3 F-97.9 F 63-74 18-24 91-105/51-72 97 PE Gen: non verbal, awake, alert Pulm: decreased BS bilateral. On RA CV: regular, no murmurs Abd: soft, NT, +PEG tube in place Ex: warm, no edema . Thin extremities Laboratory Results - last 24 hr 09/10/16 09/10/16 10:53 10:53 Iron 18 L TIBC 203 L Iron Saturation 9 L Ferritin 23.786 Active Medications Generic Name Dose Route Start Last Admin Trade Name Freq PRN Reason Stop Dose Admin Fluticasone Propionate 1 spray 09/06/16 10:00 09/10/16 22:37 Flonase - NS 1 spray BID TRUDY Administration Metronidazole 100 mls @ 100 mls/hr 09/06/16 12:45 09/11/16 02:57 Flagyl 500mg Premixed Ivpb - IVPB 100 mls/hr Q8H-IV [facility]UDY Administration Pantoprazole Sodium 100 mls @ 200 mls/hr 09/06/16 22:00 09/11/16 09:21 Protonix 40mg Ivpb (Pre-Docked) IVPB 200 mls/hr BID [facility]UD[facility] Administration Aztreonam 1 gm/ Dextrose 50 mls @ 100 mls/hr 09/06/16 18:15 09/11/16 09:44 IVPB 100 mls/hr Q8H-IV TRUDY Administration Potassium Chloride 20 meq/ 1,010 mls @ 84 mls/hr 09/08/16 16:00 09/11/16 04:06 Amino Acids IVPB 84 mls/hr Q12H TRUDY Administration Levetiracetam 500 mg 09/06/16 22:00 09/11/16 09:21 Keppra Injection - IVPB 500 mg BID TRUDY Administration Phenobarbital 40 mg 09/07/16 10:00 09/10/16 10:47 Phenobarbital Injection - IVPB 40 mg DAILY [facility]UD[facility] Administration Phenobarbital 60 mg 09/06/16 22:00 09/10/16 22:38 Phenobarbital Injection - IVPB 60 mg HS TRUDY Administration Silver Sulfadiazine 1 applic 09/08/16 10:15 09/10/16 10:44 Silvadene - TP 1 applic DAILY TRUDY Administration Simethicone 80 mg 09/11/16 00:00 09/11/16 05:46 Jaynalicon Liquid - GT 80 mg Q6HPO TRUDY Administration ASSESSMENT/PLAN: Assessment: 21 year old male with PMH 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 Plan: 1. Sepsis secondary to pneumonia - Cont Aztreonam/Flagyl -ID following 2. Abdominal distention from sigmoid volvulus vs obstruction - Plan for exlap sigmoid resection and creation of end colostomy, J tube placement pending presence of stricture with G tube retention as drain, surgery and GI in touch with sister Jade - D/w surgery, procedure scheduled for Monday - Restart feeds at 20cc/ hr if distension reoccurs hold until J tube is placed 3. Mild coagulopathy - Factor levels low, less likely liver dz - Per heme, give FFP prior to surgery - Mixing studies inconclusive, repeat per heme - Appreciate heme follow up 4. Anemia -iron deficiency - Give venofer as needed 5. PU stage 2 sacrum - Allevyn dressing 6. Seizure disorder - Cont home keppra dose - Cont phenobarbital doses 7. Functional quadriplegia - pt is unable to feed self, turn or toilet independently, dependent on staff for all ADLS - hi risk for aspiration pneumonia, pressure ulcers. - cont to provide supportive care 8. DVT PPX - BOBBY stockings and SCD, hold chemical AC this time concern for bleed, surgical eval pending Visit type - Emergency Visit Emergency Visit: Yes ED Registration Date: 09/06/16 Care time: The patient presented to the Emergency Department on the above date and was hospitalized for further evaluation of their emergent condition. - New Patient This patient is new to me today: Yes Date on this admission: 09/11/16 - Critical Care Critical Care patient: No
[2016-09-11 11:21] LABS: MCH 25.9 pg (25.7-33.7); MCHC 31.6 g/dl (32.0-35.9); MEAN CELL VOLUME 82.1 fl (80-96); MEAN PLT VOLUME 8.8 fl (7.5-11.1); PLATELET COUNT 398 K/MM3 (134-434); RDW 14.7 % (11.9-15.9); WHITE BLOOD COUNT 2.6 K/mm3 (4.0-10.0)
[2016-09-11 11:44] LABS: CALCIUM 7.6 mg/dL (8.5-10.1); CREATININE 0.3 mg/dL (0.7-1.3); MAGNESIUM 1.9 mg/dL (1.8-2.4)
[2016-09-11] MEDS: PHENobarbital SODIUM 65 MG/1 ML VIAL IVPB SCH ×2 (11:52→23:07)
[2016-09-11] MEDS: FLUTICASONE PROP 0.05% 16 GM NASAL SPRAY NS SCH ×2 (11:54→23:07)
[2016-09-11] MEDS: SILVER SULFADIAZINE 1% TOP CREAM 50 GM JAR TP SCH (11:54)
--- NOTE | 2016-09-11 12:38 | PN ---
Progress Note, Physician History of Present Illness: patient better abd distension now less g tube to suction lot of residual surgery following - Current Medication List Current Medications: Active Medications Fluticasone Propionate (Flonase -) 1 spray NS BID [facility] Last Admin: 09/11/16 11:54 Dose: 1 spray Metronidazole (Flagyl 500mg Premixed Ivpb -) 100 mls @ 100 mls/hr IVPB Q8H-IV [facility] Last Admin: 09/11/16 11:52 Dose: 100 mls/hr Pantoprazole Sodium (Protonix 40mg Ivpb (Pre-Docked)) 100 mls @ 200 mls/hr IVPB BID [facility] Last Admin: 09/11/16 09:21 Dose: 200 mls/hr Aztreonam 1 gm/ Dextrose 50 mls @ 100 mls/hr IVPB Q8H-IV [facility] Last Admin: 09/11/16 09:44 Dose: 100 mls/hr Potassium Chloride 20 meq/ (Amino Acids) 1,010 mls @ 84 mls/hr IVPB Q12H [facility] Last Admin: 09/11/16 04:06 Dose: 84 mls/hr Levetiracetam (Keppra Injection -) 500 mg IVPB BID [facility] Last Admin: 09/11/16 09:21 Dose: 500 mg Phenobarbital (Phenobarbital Injection -) 40 mg IVPB DAILY [facility] Last Admin: 09/11/16 11:52 Dose: 40 mg Phenobarbital (Phenobarbital Injection -) 60 mg IVPB HS [facility] Last Admin: 09/10/16 22:38 Dose: 60 mg Silver Sulfadiazine (Silvadene -) 1 applic TP DAILY [facility] Last Admin: 09/11/16 11:54 Dose: 1 applic Simethicone (Mylicon Liquid -) 80 mg GT Q6HPO [facility] Last Admin: 09/11/16 11:54 Dose: 80 mg - Objective Vital Signs: Vital Signs Temperature 97.5 F L 09/11/16 07:13 Pulse Rate 69 09/11/16 07:13 Respiratory Rate 18 09/11/16 07:13 Blood Pressure 91/58 09/11/16 07:13 O2 Sat by Pulse Oximetry (%) 97 09/10/16 21:00 Constitutional: Yes: Calm, Mild Distress Cardiovascular: Yes: Regular Rate and Rhythm Respiratory: Yes: Regular, Poor Air Entry Gastrointestinal: Yes: Soft, Distention, Hypoactive Bowel Sounds, Other (g tube in place surrounding excoriations present around the tube) Musculoskeletal: Yes: Other Extremities: Yes: Other Neurological: Yes: Alert, Other Labs: CBC, BMP 09/11/16 11:00 09/11/16 11:00 INR, PTT INR 1.33 (0.82-1.09) H 09/07/16 05:35 Assessment/Plan 21yM with PMH 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 He is being admitted for sepsis. Sepsis secondary to pneumonia vs acute abdominal pathology Abdominal distention/volvulus anemia PU stage 2 sacrum seizure disorder functional quadriplegia plan continue current mgt will continue to monitor surgical plan awaited continue supportive measures
--- NOTE | 2016-09-11 12:41 | PN ---
Progress Note, Physician History of Present Illness: patient better abd distension better patient looking much better - Current Medication List Current Medications: Active Medications Fluticasone Propionate (Flonase -) 1 spray NS BID [facility] Last Admin: 09/11/16 11:54 Dose: 1 spray Metronidazole (Flagyl 500mg Premixed Ivpb -) 100 mls @ 100 mls/hr IVPB Q8H-IV [facility] Last Admin: 09/11/16 11:52 Dose: 100 mls/hr Pantoprazole Sodium (Protonix 40mg Ivpb (Pre-Docked)) 100 mls @ 200 mls/hr IVPB BID [facility] Last Admin: 09/11/16 09:21 Dose: 200 mls/hr Aztreonam 1 gm/ Dextrose 50 mls @ 100 mls/hr IVPB Q8H-IV [facility] Last Admin: 09/11/16 09:44 Dose: 100 mls/hr Potassium Chloride 20 meq/ (Amino Acids) 1,010 mls @ 84 mls/hr IVPB Q12H [facility] Last Admin: 09/11/16 04:06 Dose: 84 mls/hr Levetiracetam (Keppra Injection -) 500 mg IVPB BID [facility] Last Admin: 09/11/16 09:21 Dose: 500 mg Phenobarbital (Phenobarbital Injection -) 40 mg IVPB DAILY [facility] Last Admin: 09/11/16 11:52 Dose: 40 mg Phenobarbital (Phenobarbital Injection -) 60 mg IVPB HS [facility] Last Admin: 09/10/16 22:38 Dose: 60 mg Silver Sulfadiazine (Silvadene -) 1 applic TP DAILY [facility] Last Admin: 09/11/16 11:54 Dose: 1 applic Simethicone (Mylicon Liquid -) 80 mg GT Q6HPO [facility] Last Admin: 09/11/16 11:54 Dose: 80 mg - Objective Vital Signs: Vital Signs Temperature 97.5 F L 09/11/16 07:13 Pulse Rate 69 09/11/16 07:13 Respiratory Rate 18 09/11/16 07:13 Blood Pressure 91/58 09/11/16 07:13 O2 Sat by Pulse Oximetry (%) 97 09/10/16 21:00 Constitutional: Yes: No Distress, Calm Cardiovascular: Yes: Regular Rate and Rhythm Respiratory: Yes: Regular, Poor Air Entry Gastrointestinal: Yes: Soft Musculoskeletal: Yes: Other Extremities: Yes: Other Neurological: Yes: Alert, Other Labs: CBC, BMP 09/11/16 11:00 09/11/16 11:00 INR, PTT INR 1.33 (0.82-1.09) H 09/07/16 05:35 Assessment/Plan 21yM with PMH 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 He is being admitted for sepsis. Sepsis secondary to pneumonia vs acute abdominal pathology Abdominal distention/volvulus anemia PU stage 2 sacrum seizure disorder functional quadriplegia plan continue current mgmt will stop vanco tomorrow nutritional support rest ct current mgmt
--- NOTE | 2016-09-11 12:43 | PN ---
Progress Note, Physician History of Present Illness: stbal abd distension minimal no new events plan of surgery noted to take to the or on monday stable - Current Medication List Current Medications: Active Medications Fluticasone Propionate (Flonase -) 1 spray NS BID [facility] Last Admin: 09/11/16 11:54 Dose: 1 spray Metronidazole (Flagyl 500mg Premixed Ivpb -) 100 mls @ 100 mls/hr IVPB Q8H-IV [facility] Last Admin: 09/11/16 11:52 Dose: 100 mls/hr Pantoprazole Sodium (Protonix 40mg Ivpb (Pre-Docked)) 100 mls @ 200 mls/hr IVPB BID [facility] Last Admin: 09/11/16 09:21 Dose: 200 mls/hr Aztreonam 1 gm/ Dextrose 50 mls @ 100 mls/hr IVPB Q8H-IV [facility] Last Admin: 09/11/16 09:44 Dose: 100 mls/hr Potassium Chloride 20 meq/ (Amino Acids) 1,010 mls @ 84 mls/hr IVPB Q12H [facility] Last Admin: 09/11/16 04:06 Dose: 84 mls/hr Levetiracetam (Keppra Injection -) 500 mg IVPB BID [facility] Last Admin: 09/11/16 09:21 Dose: 500 mg Phenobarbital (Phenobarbital Injection -) 40 mg IVPB DAILY [facility] Last Admin: 09/11/16 11:52 Dose: 40 mg Phenobarbital (Phenobarbital Injection -) 60 mg IVPB HS [facility] Last Admin: 09/10/16 22:38 Dose: 60 mg Silver Sulfadiazine (Silvadene -) 1 applic TP DAILY [facility] Last Admin: 09/11/16 11:54 Dose: 1 applic Simethicone (Mylicon Liquid -) 80 mg GT Q6HPO [facility] Last Admin: 09/11/16 11:54 Dose: 80 mg - Objective Vital Signs: Vital Signs Temperature 97.5 F L 09/11/16 07:13 Pulse Rate 69 09/11/16 07:13 Respiratory Rate 18 09/11/16 07:13 Blood Pressure 91/58 09/11/16 07:13 O2 Sat by Pulse Oximetry (%) 97 09/10/16 21:00 Constitutional: Yes: No Distress, Calm Cardiovascular: Yes: Regular Rate and Rhythm Respiratory: Yes: Regular, Poor Air Entry Gastrointestinal: Yes: Normal Bowel Sounds, Soft Musculoskeletal: Yes: Other Extremities: Yes: Other Neurological: Yes: Alert, Other Labs: CBC, BMP 09/11/16 11:00 09/11/16 11:00 INR, PTT INR 1.33 (0.82-1.09) H 09/07/16 05:35 Assessment/Plan 21yM with PMH 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 He is being admitted for sepsis. Sepsis secondary to pneumonia vs acute abdominal pathology Abdominal distention/volvulus anemia PU stage 2 sacrum seizure disorder functional quadriplegia plan continue current mgmt vanco stopped nutritional support rest ct current mgmt' ct azactam
--- NOTE | 2016-09-11 12:44 | PN ---
Progress Note, Physician History of Present Illness: stable abd soft peg tube in place patient looks like back to baseline - Current Medication List Current Medications: Active Medications Fluticasone Propionate (Flonase -) 1 spray NS BID [facility] Last Admin: 09/11/16 11:54 Dose: 1 spray Metronidazole (Flagyl 500mg Premixed Ivpb -) 100 mls @ 100 mls/hr IVPB Q8H-IV [facility] Last Admin: 09/11/16 11:52 Dose: 100 mls/hr Pantoprazole Sodium (Protonix 40mg Ivpb (Pre-Docked)) 100 mls @ 200 mls/hr IVPB BID [facility] Last Admin: 09/11/16 09:21 Dose: 200 mls/hr Aztreonam 1 gm/ Dextrose 50 mls @ 100 mls/hr IVPB Q8H-IV [facility] Last Admin: 09/11/16 09:44 Dose: 100 mls/hr Potassium Chloride 20 meq/ (Amino Acids) 1,010 mls @ 84 mls/hr IVPB Q12H [facility] Last Admin: 09/11/16 04:06 Dose: 84 mls/hr Levetiracetam (Keppra Injection -) 500 mg IVPB BID [facility] Last Admin: 09/11/16 09:21 Dose: 500 mg Phenobarbital (Phenobarbital Injection -) 40 mg IVPB DAILY [facility] Last Admin: 09/11/16 11:52 Dose: 40 mg Phenobarbital (Phenobarbital Injection -) 60 mg IVPB HS [facility] Last Admin: 09/10/16 22:38 Dose: 60 mg Silver Sulfadiazine (Silvadene -) 1 applic TP DAILY [facility] Last Admin: 09/11/16 11:54 Dose: 1 applic Simethicone (Mylicon Liquid -) 80 mg GT Q6HPO [facility] Last Admin: 09/11/16 11:54 Dose: 80 mg - Objective Vital Signs: Vital Signs Temperature 97.5 F L 09/11/16 07:13 Pulse Rate 69 09/11/16 07:13 Respiratory Rate 18 09/11/16 07:13 Blood Pressure 91/58 09/11/16 07:13 O2 Sat by Pulse Oximetry (%) 97 09/10/16 21:00 Constitutional: Yes: No Distress, Calm Cardiovascular: Yes: Regular Rate and Rhythm Respiratory: Yes: Regular, Poor Air Entry Gastrointestinal: Yes: Normal Bowel Sounds, Soft Extremities: Yes: Other Neurological: Yes: Alert, Other Labs: CBC, BMP 09/11/16 11:00 09/11/16 11:00 INR, PTT INR 1.33 (0.82-1.09) H 09/07/16 05:35 Assessment/Plan 21yM with PMH 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 He is being admitted for sepsis. Sepsis secondary to pneumonia vs acute abdominal pathology Abdominal distention/volvulus anemia PU stage 2 sacrum seizure disorder functional quadriplegia plan continue current mgmt await for surgery
--- NOTE | 2016-09-11 13:37 | PN ---
Progress Note (short form) - Note Progress Note: Seen in follow up. No significant events. Nurse concerned about abdominal distension - feed held. Meds reviewed. Current Medications Generic Name Dose Route Start Last Admin Trade Name [place] PRN Reason Stop Dose Admin Fluticasone Propionate 1 spray 09/06/16 10:00 09/11/16 11:54 Flonase - NS 1 spray BID TRUD[facility] Administration Metronidazole 100 mls @ 100 mls/hr 09/06/16 12:45 09/11/16 11:52 Flagyl 500mg Premixed Ivpb - IVPB 100 mls/hr Q8H-IV [facility]UD[facility] Administration Pantoprazole Sodium 100 mls @ 200 mls/hr 09/06/16 22:00 09/11/16 09:21 Protonix 40mg Ivpb (Pre-Docked) IVPB 200 mls/hr BID [facility] Administration Aztreonam 1 gm/ Dextrose 50 mls @ 100 mls/hr 09/06/16 18:15 09/11/16 09:44 IVPB 100 mls/hr Q8H-IV TRUDY Administration Potassium Chloride 20 meq/ 1,010 mls @ 84 mls/hr 09/08/16 16:00 09/11/16 04:06 Amino Acids IVPB 84 mls/hr Q12H TRUDY Administration Iron Sucrose 200 mg/ Sodium 250 mls @ 250 mls/hr 09/11/16 13:45 Chloride IVPB 09/11/16 14:44 ONCE ONE Levetiracetam 500 mg 09/06/16 22:00 09/11/16 09:21 Keppra Injection - IVPB 500 mg BID TRUDY Administration Phenobarbital 40 mg 09/07/16 10:00 09/11/16 11:52 Phenobarbital Injection - IVPB 40 mg DAILY [facility] Administration Phenobarbital 60 mg 09/06/16 22:00 09/10/16 22:38 Phenobarbital Injection - IVPB 60 mg HS [facility] Administration Silver Sulfadiazine 1 applic 09/08/16 10:15 09/11/16 11:54 Silvadene - TP 1 applic DAILY [facility]UD[facility] Administration Simethicone 80 mg 09/11/16 00:00 09/11/16 11:54 Mylicon Liquid - GT 80 mg Q6HPO TRUDY Administration On exam: Last Vital Signs Temp Pulse Resp BP Pulse Ox 97.5 F L 69 18 91/58 97 09/11/16 07:13 09/11/16 07:13 09/11/16 07:13 09/11/16 07:13 09/10/16 21:00 Appears comfortable. Abdomen: Soft, non-tender, distended, but resonant througout. Chest: clear Neuro: Awake, contracted, as at baseline. CBC, BMP 09/11/16 11:00 09/11/16 11:00 INR, PTT INR 1.33 (0.82-1.09) H 09/07/16 05:35 Assessment: Mild coagulopathy (non-clinical) of unclear significance. Prior reported discordant heme labs (?mixes or not) Factor levels uniformly low, including Factor VIII, which make liver etiology less likely. High index of suspicion for artefact, with low suspicion for actual bleeding risk. But not unreasonable to empirically give FFP pre surgery. Would repeat mixing studies. Microcytic anemia, developed over past several months. Likely YVETTE, with component of anemia of inflammation. Empiric IV iron reasonable.
[2016-09-11] MEDS ORDERED: IRON SUCROSE INJECTION 200 MG in SODIUM CHLORIDE 240 ML IVPB ONE (13:45)
--- NOTE | 2016-09-11 15:02 | PN ---
GI Progress Note Subjective: GI NOte: Tolerating feeding with venting of G tube venting. Will increase to 20cc/hr. - Objective Vital Signs: Vital Signs Temperature 98.5 F 09/11/16 14:04 Pulse Rate 80 09/11/16 14:04 Respiratory Rate 20 09/11/16 14:04 Blood Pressure 113/64 09/11/16 14:04 O2 Sat by Pulse Oximetry (%) 97 09/10/16 21:00 CBC,CMP WBC 2.6 K/mm3 (4.0-10.0) L D 09/11/16 11:00 RBC 3.53 M/mm3 (4.00-5.60) L 09/11/16 11:00 Hgb 9.2 GM/dL (11.7-16.9) L D 09/11/16 11:00 Hct 29.0 % (35.4-49) L 09/11/16 11:00 MCV 82.1 fl (80-96) 09/11/16 11:00 MCHC 31.6 g/dl (32.0-35.9) L 09/11/16 11:00 RDW 14.7 % (11.9-15.9) 09/11/16 11:00 Plt Count 398 K/MM3 (134-434) 09/11/16 11:00 MPV 8.8 fl (7.5-11.1) 09/11/16 11:00 Neutrophils % 64.7 % (42.8-82.8) 09/09/16 06:30 Lymphocytes % 22.0 % (8-40) D 09/09/16 06:30 Monocytes % 9.3 % (3.8-10.2) 09/09/16 06:30 Eosinophils % 2.8 % (0-4.5) 09/09/16 06:30 Basophils % 1.2 % (0-2.0) 09/09/16 06:30 Band Neutrophils 13.0 % (0-10) H 09/06/16 01:00 Polychromasia 1+ 09/06/16 01:00 Anisocytosis 1+ 09/06/16 01:00 Spherocytes 1+ 09/06/16 01:00 Sodium 136 mmol/L (136-145) 09/11/16 11:00 Potassium 4.5 mmol/L (3.5-5.1) D 09/11/16 11:00 Chloride 104 mmol/L (98-107) 09/11/16 11:00 Carbon Dioxide 24 mmol/L (21-32) 09/11/16 11:00 Anion Gap 8 (8-16) 09/11/16 11:00 BUN 11 mg/dL (7-18) D 09/11/16 11:00 Creatinine 0.3 mg/dL (0.7-1.3) L D 09/11/16 11:00 Creat Clearance w eGFR > 60 (>60) 09/09/16 06:30 POC Glucometer 119.35145 UNITS (()) 09/06/16 17:52 Random Glucose 87 mg/dL (74-106) 09/11/16 11:00 Lactic Acid 1.208 mmol/L (0.4-2.0) 09/06/16 04:23 Calcium 7.6 mg/dL (8.5-10.1) L 09/11/16 11:00 Phosphorus 2.7 mg/dL (2.5-4.9) D 09/08/16 06:30 Magnesium 1.9 mg/dL (1.8-2.4) 09/11/16 11:00 Iron 18 ug/dL (38-169) L 09/10/16 10:53 TIBC 203 ug/dL (250-450) L 09/10/16 10:53 Iron Saturation 9 % (15-55) L 09/10/16 10:53 Ferritin 23.786 ng/ml (16.4-293.9) 09/10/16 10:53 Total Bilirubin 0.2 mg/dL (0.2-1.0) D 09/09/16 06:30 AST 25 U/L (15-37) D 09/09/16 06:30 ALT 21 U/L (12-78) 09/09/16 06:30 Alkaline Phosphatase 59 U/L (45-117) 09/09/16 06:30 Total Protein 5.1 g/dl (6.4-8.2) L 09/09/16 06:30 Albumin 2.0 g/dl (3.4-5.0) L 09/09/16 06:30 Gastrointestinal Inspection: Yes: Distention ...Auscultate: Yes: Normoactive Bowel Sounds ...Palpate: Yes: Soft, Other (nontender) Labs: CBC, BMP 09/11/16 11:00 09/11/16 11:00 INR, PTT INR 1.33 (0.82-1.09) H 09/07/16 05:35 Assessment/Plan Will try to advance feedings. Discussed case wuith Dr Foley of anesthesia who tells me that he obtained anesthesia consent already. Anticipate surgery this week. Problem List - Problems (1) Sigmoid volvulus Code(s): K56.2 - VOLVULUS (2) Stercoral ulcer of rectum Code(s): K62.6 - ULCER OF ANUS AND RECTUM (3) Gastric hourglass stricture or stenosis Code(s): K31.2 - HOURGLASS STRICTURE AND STENOSIS OF STOMACH (4) Sigmoid polyp Code(s): D12.5 - BENIGN NEOPLASM OF SIGMOID COLON (5) H/O Mackenzie-Guillen syndrome Code(s): Z87.19 - PERSONAL HISTORY OF OTHER DISEASES OF THE DIGESTIVE SYSTEM
[2016-09-12] MEDS: AZTREONAM 1 GM in DEXTROSE 5%-WATER - 50 ML IVPB SCH ×3 (01:16→17:54)
[2016-09-12] MEDS: METRONIDAZOLE 500 MG PREMIXED 100 ML IVPB SCH ×3 (01:47→17:53)
[2016-09-12] MEDS: SIMETHICONE 40 MG/0.6 ML BOTTLE GT SCH ×4 (05:32→23:38)
[2016-09-12] MEDS: POTASSIUM CHLORIDE 20 MEQ in AMINO ACIDS 4.25%/D5W 1,000 ML IVPB SCH ×2 (05:32→15:56)
[2016-09-12 07:49] LABS: MCH 26.1 pg (25.7-33.7); MCHC 31.8 g/dl (32.0-35.9); MEAN CELL VOLUME 81.9 fl (80-96); MEAN PLT VOLUME 8.7 fl (7.5-11.1); PLATELET COUNT 483 K/MM3 (134-434); RDW 15.4 % (11.9-15.9); WHITE BLOOD COUNT 3.5 K/mm3 (4.0-10.0)
[2016-09-12 08:02] LABS: INR 1.51 (0.82-1.09); PROTHROMBIN TIME (PATIENT) 16.8 SEC (9.98-11.88)
[2016-09-12 08:37] LABS: CALCIUM 8.2 mg/dL (8.5-10.1); CREATININE 0.3 mg/dL (0.7-1.3); MAGNESIUM 2.2 mg/dL (1.8-2.4)
[2016-09-12] MEDS: levETIRAcetam 500 MG/5 ML INJECTION VIAL IVPB SCH ×2 (09:20→21:25)
[2016-09-12] MEDS: PANTOPRAZOLE SODIUM 100 ML IVPB SCH ×2 (10:26→21:52)
[2016-09-12] MEDS: PHENobarbital SODIUM 65 MG/1 ML VIAL IVPB SCH ×2 (10:26→22:09)
[2016-09-12] MEDS: FLUTICASONE PROP 0.05% 16 GM NASAL SPRAY NS SCH ×2 (10:55→21:24)
[2016-09-12] MEDS: SILVER SULFADIAZINE 1% TOP CREAM 50 GM JAR TP SCH (10:56)
--- NOTE | 2016-09-12 12:38 | PN ---
GI Progress Note Subjective: GI: Tolerating feedings. I vented the G tube and changed the dressing after applying mafenide and rotating the bumper - Objective Vital Signs: Vital Signs Temperature 97.4 F L 09/12/16 05:50 Pulse Rate 73 09/12/16 05:59 Respiratory Rate 18 09/12/16 05:59 Blood Pressure 105/54 09/12/16 05:59 O2 Sat by Pulse Oximetry (%) 100 09/11/16 21:00 CBC, BMP 09/12/16 06:20 09/12/16 06:20 Constitutional: Calm ...Auscultate: Yes: Normoactive Bowel Sounds ...Palpate: Yes: Soft, Other (nontender) Labs: CBC, BMP 09/12/16 06:20 09/12/16 06:20 INR, PTT INR 1.51 (0.82-1.09) H 09/12/16 06:20 Assessment/Plan Will try to advance feedings. Anticipate surgery this week. Problem List - Problems (1) Sigmoid volvulus Code(s): K56.2 - VOLVULUS (2) Stercoral ulcer of rectum Code(s): K62.6 - ULCER OF ANUS AND RECTUM (3) Gastric hourglass stricture or stenosis Code(s): K31.2 - HOURGLASS STRICTURE AND STENOSIS OF STOMACH (4) Sigmoid polyp Code(s): D12.5 - BENIGN NEOPLASM OF SIGMOID COLON (5) H/O Mackenzie-Guillen syndrome Code(s): Z87.19 - PERSONAL HISTORY OF OTHER DISEASES OF THE DIGESTIVE SYSTEM
--- NOTE | 2016-09-12 14:30 | PN ---
Physical Exam: SUBJECTIVE: Patient seen and examined. PEG tube feedings advanced to 30ml/hr and pt became more distended and burping. Aerated once again with nurse at bedside. Earlier today bleeding at PEG site which has since resolved. Now with C/D/I dressing OBJECTIVE: Vital Signs Period Temp Pulse Resp BP Sys/Begum Pulse Ox Last 24 Hr 97.2 F-97.9 F 67-74 18-20 84-113/44-72 100 Gen: non verbal, awake, alert Pulm: decreased BS bilateral. On RA CV: regular, no murmurs Abd: soft, NT, +PEG tube in place, distended abdomen Ex: warm, no edema . Thin extremities Laboratory Results - last 24 hr 09/12/16 09/12/16 09/12/16 06:20 06:20 06:20 WBC 3.5 L D RBC 3.53 L Hgb 9.2 L Hct 28.9 L MCV 81.9 MCHC 31.8 L RDW 15.4 Plt Count 483 H D MPV 8.7 INR 1.51 H Sodium 135 L Potassium 4.7 Chloride 103 Carbon Dioxide 25 Anion Gap 7 L BUN 12 Creatinine 0.3 L Random Glucose 86 Calcium 8.2 L Magnesium 2.2 Active Medications Generic Name Dose Route Start Last Admin Trade Name Freq PRN Reason Stop Dose Admin Fluticasone Propionate 1 spray 09/06/16 10:00 09/12/16 10:55 Flonase - NS 1 spray BID TRUDY Administration Metronidazole 100 mls @ 100 mls/hr 09/06/16 12:45 09/12/16 09:19 Flagyl 500mg Premixed Ivpb - IVPB 100 mls/hr Q8H-IV TRUDY Administration Pantoprazole Sodium 100 mls @ 200 mls/hr 09/06/16 22:00 09/12/16 10:26 Protonix 40mg Ivpb (Pre-Docked) IVPB 200 mls/hr BID TRUDY Administration Aztreonam 1 gm/ Dextrose 50 mls @ 100 mls/hr 09/06/16 18:15 09/12/16 01:16 IVPB 100 mls/hr Q8H-IV TRUDY Administration Potassium Chloride 20 meq/ 1,010 mls @ 84 mls/hr 09/08/16 16:00 09/12/16 05:32 Amino Acids IVPB 84 mls/hr Q12H TRUDY Administration Levetiracetam 500 mg 09/06/16 22:00 09/12/16 09:20 Keppra Injection - IVPB 500 mg BID TRUDY Administration Phenobarbital 40 mg 09/07/16 10:00 09/12/16 10:26 Phenobarbital Injection - IVPB 40 mg DAILY TRUDY Administration Phenobarbital 60 mg 09/06/16 22:00 09/11/16 23:07 Phenobarbital Injection - IVPB 60 mg HS TRUDY Administration Polyethylene Glycol 17 gm 09/13/16 10:00 Miralax (For Daily Use) - PEG DAILY TRUDY Silver Sulfadiazine 1 applic 09/08/16 10:15 09/12/16 10:56 Silvadene - TP 1 applic DAILY TRUDY Administration Simethicone 80 mg 09/11/16 00:00 09/12/16 05:32 Mylicon Liquid - GT 80 mg Q6HPO TRUDY Administration ASSESSMENT/PLAN: 21 year old male with PMH 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 Plan: 1. Sepsis secondary to pneumonia - Cont Aztreonam/Flagyl -ID following 2. Abdominal distention from sigmoid volvulus vs obstruction -Lapartomy scheduled for [facility] 09/13 -type and screen ordered, NPO p midnight/nurse informed to hold tube feedings as well 3. Mild coagulopathy - Factor levels low, less likely liver disease - Per heme, give FFP prior to surgery - Mixing studies inconclusive, repeat per heme - Appreciate heme follow up 4. Anemia -iron deficiency - Give venofer as needed. 5. PU stage 2 sacrum - Allevyn dressing 6. Seizure disorder - Cont home keppra dose - Cont phenobarbital doses 7. Functional quadriplegia - pt is unable to feed self, turn or toilet independently, dependent on staff for all ADLS - high risk for aspiration pneumonia, pressure ulcers. - cont to provide supportive care -g Visit type - Emergency Visit Emergency Visit: Yes ED Registration Date: 09/06/16 Care time: The patient presented to the Emergency Department on the above date and was hospitalized for further evaluation of their emergent condition. - New Patient This patient is new to me today: No - Critical Care Critical Care patient: No
--- NOTE | 2016-09-12 15:37 | PN ---
Progress Note (short form) - Note Progress Note: Patient seen and examined Last Vital Signs Temp Pulse Resp BP Pulse Ox 97.7 F 68 20 113/60 99 09/12/16 15:00 09/12/16 15:00 09/12/16 15:00 09/12/16 15:00 09/12/16 09:00 downs syndrome facies contracures arms/legs Cor: RSR, No murmurs, No gallops Lungs: Clear to P&A Abd: Soft, Normal bowel sounds, No organomegaly Ext:No significant edema Abnormal Lab Results 09/12/16 09/12/16 09/12/16 06:20 06:20 06:20 WBC 3.5 L D RBC 3.53 L Hgb 9.2 L Hct 28.9 L MCHC 31.8 L Plt Count 483 H D INR 1.51 H Sodium 135 L Anion Gap 7 L Creatinine 0.3 L Calcium 8.2 L Current Medications Fluticasone Propionate (Flonase -) 1 spray NS BID [facility] Last Admin: 09/12/16 10:55 Dose: 1 spray Metronidazole (Flagyl 500mg Premixed Ivpb -) 100 mls @ 100 mls/hr IVPB Q8H-IV TRUDY Last Admin: 09/12/16 09:19 Dose: 100 mls/hr Pantoprazole Sodium (Protonix 40mg Ivpb (Pre-Docked)) 100 mls @ 200 mls/hr IVPB BID [facility] Last Admin: 09/12/16 10:26 Dose: 200 mls/hr Aztreonam 1 gm/ Dextrose 50 mls @ 100 mls/hr IVPB Q8H-IV TRUDY Last Admin: 09/12/16 15:01 Dose: Not Given Potassium Chloride 20 meq/ (Amino Acids) 1,010 mls @ 84 mls/hr IVPB Q12H [facility] Last Admin: 09/12/16 15:56 Dose: 84 mls/hr Levetiracetam (Keppra Injection -) 500 mg IVPB BID [facility] Last Admin: 09/12/16 09:20 Dose: 500 mg Phenobarbital (Phenobarbital Injection -) 40 mg IVPB DAILY [facility] Last Admin: 09/12/16 10:26 Dose: 40 mg Phenobarbital (Phenobarbital Injection -) 60 mg IVPB HS [facility] Last Admin: 09/11/16 23:07 Dose: 60 mg Phytonadione (Aqua Mephyton Injection -) 5 mg SQ DAILY [facility] Stop: 09/15/16 10:01 Polyethylene Glycol (Miralax (For Daily Use) -) 17 gm PEG DAILY [facility] Silver Sulfadiazine (Silvadene -) 1 applic TP DAILY [facility] Last Admin: 09/12/16 10:56 Dose: 1 applic Simethicone (Mylicon Liquid -) 80 mg GT Q6HPO TRUDY Last Admin: 09/12/16 12:30 Dose: 80 mg ASSESSMENT/PLAN: 21yM with PMH 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 Being planned for volvulus surgery Elevated PTT-- mixing study in the past --correction with one and noncorrection with other factor VIII/XI,X , V all borderline low neg. lupus anticoagulant ? inhibitor effect---check anticardiolipin profile ? liver disease ? artifactual will transfuse FFP prior to procedure will discuss with surgical team
[2016-09-12] MEDS: PHYTONADIONE 10 MG/1 ML AMP SQ SCH (17:54)
[2016-09-13 00:06] LABS: BETA-2-GLYCOPROTEIN I IGA <9 (0-25)
[2016-09-13] MEDS ORDERED: PT OWN MED DRAWER 7, Y5N ONE ×3 (01:32→17:45)
[2016-09-13] MEDS: METRONIDAZOLE 500 MG PREMIXED 100 ML IVPB SCH ×3 (01:45→18:11)
[2016-09-13] MEDS: AZTREONAM 1 GM in DEXTROSE 5%-WATER - 50 ML IVPB SCH ×3 (01:45→18:11)
[2016-09-13] MEDS: POTASSIUM CHLORIDE 20 MEQ in AMINO ACIDS 4.25%/D5W 1,000 ML IVPB SCH ×2 (05:35→18:10)
[2016-09-13] MEDS: SIMETHICONE 40 MG/0.6 ML BOTTLE GT SCH ×3 (05:35→18:11)
[2016-09-13] MEDS ORDERED: LIDOCAINE HCL/PF 2% SDV 5ML VIAL ONE (07:47)
[2016-09-13] MEDS ORDERED: SUCCINYLCHOLINE CHLORIDE 200 MG/10 ML VIAL ONE (07:47)
[2016-09-13] MEDS ORDERED: ROCURONIUM BROMIDE 50 MG/5 ML VIAL ONE ×2 (07:47→11:40)
[2016-09-13] MEDS ORDERED: PROPOFOL 20 ML ONE ×4 (07:47→11:40)
[2016-09-13 08:15] LABS: INR 1.14 (0.82-1.09); MCH 26.2 pg (25.7-33.7); MCHC 31.8 g/dl (32.0-35.9); MEAN CELL VOLUME 82.2 fl (80-96); PLATELET COUNT 485 K/MM3 (134-434); PROTHROMBIN TIME (PATIENT) 12.6 SEC (9.98-11.88); RDW 15.2 % (11.9-15.9); WHITE BLOOD COUNT 2.9 K/mm3 (4.0-10.0)
[2016-09-13] MEDS: levETIRAcetam 500 MG/5 ML INJECTION VIAL IVPB SCH ×3 (08:40→22:38)
[2016-09-13] MEDS: PHYTONADIONE 10 MG/1 ML AMP SQ SCH ×2 (08:41→09:05)
[2016-09-13 08:52] LABS: CALCIUM 8.8 mg/dL (8.5-10.1); CREATININE 0.4 mg/dL (0.7-1.3); MAGNESIUM 2.2 mg/dL (1.8-2.4)
[2016-09-13] MEDS: PANTOPRAZOLE SODIUM 100 ML IVPB SCH (09:05)
[2016-09-13] MEDS: SILVER SULFADIAZINE 1% TOP CREAM 50 GM JAR TP SCH (09:05)
[2016-09-13] MEDS: PHENobarbital SODIUM 65 MG/1 ML VIAL IVPB SCH ×2 (09:05→21:16)
[2016-09-13] MEDS: FLUTICASONE PROP 0.05% 16 GM NASAL SPRAY NS SCH (09:05)
[2016-09-13 09:33] LABS: INR 1.16 (0.82-1.09); PROTHROMBIN TIME (PATIENT) 12.8 SEC (9.98-11.88)
[2016-09-13] MEDS ORDERED: MIDAZOLAM HCL 2 MG/2 ML SINGLE DOSE VIAL ONE (09:37)
[2016-09-13] MEDS ORDERED: METRONIDAZOLE 500 MG PREMIXED 100 ML IVPB ONE (09:44)
[2016-09-13] MEDS ORDERED: METRONIDAZOLE 500 MG PREMIXED 500 MG/100 ML MG IVPB ONE (09:45)
[2016-09-13] MEDS ORDERED: PHYTONADIONE 10 MG/1 ML AMP SQ SCH (10:00)
[2016-09-13] MEDS ORDERED: POLYETHYLENE GLYCOL 3350 119 GM BTL PEG SCH (10:00)
[2016-09-13] MEDS ORDERED: ePHEDrine SULFATE 50 MG/1 ML AMPULE ONE (10:10)
[2016-09-13] MEDS ORDERED: AZTREONAM 1 GM VIAL (RESTRICTED TO ID) IVPB ONE (10:25)
[2016-09-13] MEDS ORDERED: DEXAMETHASONE SOD PHOSPHATE 4 MG/1 ML VIAL ONE (10:59)
[2016-09-13] MEDS ORDERED: NEOSTIGMINE METHYLSULFATE 0.5 MG/ML - 10 ML MDV ONE (11:46)
[2016-09-13] MEDS ORDERED: GLYCOPYRROLATE 0.2 MG/1 ML VIAL ONE ×2 (11:46→11:58)
--- NOTE | 2016-09-13 12:00 | OP ---
Operative Note - Note: Operative Date: 09/13/16 Pre-Operative Diagnosis: sigmoid volvulus Operation: exploratory laparotomy, subtotal colectomy, creation end ileostomy Findings: no evidence antral stricture or mass. picture of G tube and distal stomach taken. extremely dilated megacolon. whole colon was dilated. most severe was sigmoid at 14cm. Post-Operative Diagnosis: Other (chronic colonic inertia, megacolon with volvulus) Surgeon: Edward Spain Roller Cleaner: Haleigh Norman Anesthesia: General Estimated Blood Loss (mls): 10 Operative Report Dictated: Yes
[2016-09-13] MEDS ORDERED: morphine CARPU-JECT 2 MG/1 ML DISP.SYRIN IVPUSH PRN (12:07)
[2016-09-13] MEDS ORDERED: HYDROmorphone HCL CARPU-JECT 1 MG/1 ML DISP.SYRIN IVPB PRN (12:08)
[2016-09-13] MEDS ORDERED: ONDANSETRON 4 MG/2 ML VIAL IVPUSH PRN (12:15)
--- NOTE | 2016-09-13 12:43 | SURG ---
Surgery Realty Loan Specialist Note Realty Loan Specialist: hCitra Torres PA-C Date of Service: 09/13/16 Diagnosis: sigmoid volvulus Procedure: exploratory laparotomy, subtotal colectomy, creation end ileostomy I was present for the entirety of the operative procedure. For further detail, please refer to operative report. Visit type - Case Type Case Type: ED Admission - New patient This patient is new to me today: Yes Date on this admission: 09/13/16
[2016-09-13 12:49] LABS: INR (MIXED) 1.13 (0.80-1.00); MIXED PT 12.5 SECONDS (9.4-11.6)
[2016-09-13 12:50] LABS: APTT (MIXED) 33.1 SECONDS (24.0-38.9)
--- NOTE | 2016-09-13 13:40 | PN ---
Progress Note, Physician History of Present Illness: post patient doing ok no major procedure done - Current Medication List Current Medications: Active Medications Fentanyl (Sublimaze Injection -) 50 mcg IVPUSH [id number] PRN PRN Reason: PAIN Stop: 09/16/16 12:16 Last Admin: 09/13/16 13:30 Dose: 50 mcg Fluticasone Propionate (Flonase -) 1 spray NS BID TRUDY Hydromorphone HCl (Dilaudid Injection -) 1 mg IVPB Q4H PRN PRN Reason: PAIN LEVEL 6-10 Aztreonam 1 gm/ Dextrose 50 mls @ 100 mls/hr IVPB Q8H-IV TRUDY Potassium Chloride 20 meq/ (Amino Acids) 1,010 mls @ 84 mls/hr IVPB Q12H TRUDY Metronidazole (Flagyl 500mg Premixed Ivpb -) 100 mls @ 100 mls/hr IVPB Q8H-IV TRUDY Pantoprazole Sodium (Protonix 40mg Ivpb (Pre-Docked)) 100 mls @ 200 mls/hr IVPB BID TRUDY Levetiracetam (Keppra Injection -) 500 mg IVPB BID TRUDY Morphine Sulfate (Morphine Injection -) 2 mg IVPUSH Q3H PRN PRN Reason: PAIN Ondansetron HCl (Zofran Injection) 4 mg IVPUSH Q6H PRN PRN Reason: NAUSEA AND/OR VOMITING Stop: 09/13/16 18:16 Phenobarbital (Phenobarbital Injection -) 60 mg IVPB HS TRUDY Phenobarbital (Phenobarbital Injection -) 40 mg IVPB DAILY TRUDY Phytonadione (Aqua Mephyton Injection -) 5 mg SQ DAILY TRUDY Stop: 09/14/16 10:01 Polyethylene Glycol (Miralax (For Daily Use) -) 17 gm PEG DAILY TRUDY Silver Sulfadiazine (Silvadene -) 1 applic TP DAILY TRUDY Simethicone (Mylicon Liquid -) 80 mg GT Q6HPO TRUDY - Objective Vital Signs: Vital Signs Temperature 97.5 F L 09/13/16 12:17 Pulse Rate 61 09/13/16 13:05 Respiratory Rate 16 09/13/16 13:05 Blood Pressure 102/67 09/13/16 13:05 O2 Sat by Pulse Oximetry (%) 100 09/13/16 13:05 Constitutional: Yes: No Distress, Calm Neck: Yes: Supple Cardiovascular: Yes: Regular Rate and Rhythm Respiratory: Yes: Regular Gastrointestinal: Yes: Soft, Hypoactive Bowel Sounds, Other (feding tube in place) Musculoskeletal: Yes: Other Extremities: Yes: Other Neurological: Yes: Alert, Other Labs: CBC, BMP 09/13/16 07:30 09/13/16 07:30 INR, PTT INR 1.16 (0.82-1.09) H 09/13/16 07:30 Fibrinogen 367.0 mg/dL (238-498) 09/13/16 07:30 Assessment/Plan 21yM with PMH 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 He is being admitted for sepsis. Sepsis secondary to pneumonia vs acute abdominal pathology Abdominal distention/volvulus anemia PU stage 2 sacrum seizure disorder functional quadriplegia plan continue current mgmt post op patient stable will start tapering abx will stop azactam tomorrow
[2016-09-13] MEDS ORDERED: LACTATED RINGERS SOLUTION 1,000 ML IV SCH (13:45)
--- NOTE | 2016-09-13 14:35 | OP ---
DATE OF OPERATION: 09/13/2016 PREOPERATIVE DIAGNOSIS: Sigmoid volvulus with possible antral stricture. 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 There was no evidence of any kind of antral stricture or gastric outlet obstruction. SURGEON: Emeak Spain MD BONE DRIER: FERDINAND Sanders ANESTHESIA: General endotracheal anesthesia. OPERATION: Exploratory laparotomy, subtotal colectomy with creation of end ileostomy. OPERATIVE NOTE IN DETAIL: The patient was brought in to the operating room after confirming name, date of , and medical record number. He was placed in supine position and he was induced and intubated by the anesthesiologist. He was given appropriate perioperative antibiotics. A Dao catheter was then placed after he was induced and intubated. We then removed his TESFAYE-BARAKAT tube and covered his G-tube with a Tegaderm. We then prepped the abdomen and draped in the usual sterile fashion. We also placed an Ioban dressing on top of his abdomen. A time-out was then performed. I marked off his midline and made a generous midline incision and used electrocautery to go down to his fascia. I then grabbed his peritoneum and then cut through it with Metzenbaum scissors and immediately the bowel tried to come out, as it was very dilated and distended. I then placed my finger inside the abdomen and completed a laparotomy. As soon as I opened his abdomen, a lot of colon and small bowel popped out of his abdomen even though he was maximally relaxed, as he had chronic dilatation. I started to pull out his colon and it was already mobilized from chronic distention and I was able to pull out his whole sigmoid colon with ease, his splenic flexure with ease, his transverse colon with ease, and his right colon was somewhat tethered to the right brittni abdomen. Given the chronic dilatation and the multiple points for volvulus, the decision was made to not only perform a sigmoid colectomy but a subtotal colectomy, as I felt that the patient was at risk of volvulus of other more proximal portions of the colon if I did not do so. At this point I then went down to his rectosigmoid junction, placed my finger at the bowel mesentery interface, created a window, and fired a blue ROSA 80 stapler, dividing it distally. At this point I then went to the terminal ileum, created a window at the bowel and mesentery junction, and then fired a blue load stapler as well. I then used a LigaSure to take the mesentery of the bowel close to the colon and this was quite laborious as there was a lot of colon. As I came around from distal to proximal, eventually to the right colon, I had to completely medialize the right colon and get it off of the duodenum. This was done with careful blunt dissection and once I was able to medialize the right colon, I then continued to take the mesentery. The large specimen was then sent off the field for permanent examination. At this point I then irrigated and ensured for hemostasis and then attention was now paid towards the stomach. The G-tube balloon was clearly felt in the stomach. I then palpated both proximal and distally and felt no mass. While the balloon was somewhat close to the pylorus, I did not feel that revision was worth the risk and I was concerned that the patient would pull out any further feeding tubes. I believe that most likely his chronic obstruction was due to the chronic volvulus causing his aspiration pneumonia and, if necessary, we can always take him back later for a feeding jejunostomy but for now I want to avoid the morbidity of adding a jejunostomy and I want to see what he is like with an end ileostomy. Again I confirmed and took a picture of the intact antrum going into the duodenum in a non-kinked fashion without any mass. I created a right lower quadrant aperture. This was done by removing a quarter size of his skin with electrocautery. I bluntly dissected down to his fascia, created a linear incision under the fascia onto his rectus muscle, which I spread bluntly with Elda clamps and then used electrocautery to go through his posterior sheath onto a preplaced abdominal lap pad. Once we created this aperture and I could place 2 fingerbreadths through it, I then placed a Nancy clamp through it and then brought out the terminal ileum in a non-twisting fashion with the mesentery pointing cephalad. At this point I then closed the abdomen with running looped PDS tied to itself. I buried the knot with 3-0 Vicryl and then reapproximated the skin with skin eli. I then turned my attention towards maturation of the ostomy, where I removed the staple line with electrocautery, suctioned out the colon with a pool sucker, and then matured the colon in a Eleonora fashion with 3-0 Vicryl. An ostomy dressing was then to be placed. All counts were correct. EMEKA SPAIN M.D. [id number]
[2016-09-13] MEDS ORDERED: DEXTROSE 5%-WATER - 1,000 ML IV SCH (17:15)
--- NOTE | 2016-09-13 17:17 | PN ---
Physical Exam: SUBJECTIVE: POD #0 - had ex-lap, subtotal colectomy and creation of end ileostomy. Repeat FFP with surgery and post dyue to coagulopathy (total of 5) OBJECTIVE: Vital Signs Period Temp Pulse Resp BP Sys/Begum Pulse Ox Last 24 Hr 97 F-97.9 F 60-78 14-20 100-128/52-84 98-100 Gen: non verbal, awake, alert. Appears drowsy but arousable Pulm: decreased BS bilateral. on NC CV: regular, no murmurs Abd: soft, NT, +colostomy, +C/D/I s/p ex-lap Ex: warm, no edema . Thin extremities : Dao in place Laboratory Results - last 24 hr 09/10/16 09/13/16 09/13/16 10:24 07:30 07:30 WBC 2.9 L RBC 3.62 L Hgb 9.5 L Hct 29.8 L MCV 82.2 MCHC 31.8 L RDW 15.2 Plt Count 485 H MPV 9.0 INR 1.14 PTT (Actin FS) Mix INR Baseline PTT Mix w Anti Prot C Fibrinogen Sodium Potassium Chloride Carbon Dioxide Anion Gap BUN Creatinine Random Glucose Calcium Magnesium Tmmp-9-Lvdfrifgssiq <9 Udhe-1-Zbmlfsbfdqll Ab <9 Beta-2-GPI IgM Ab <9 Blood Type Antibody Screen Crossmatch IS Only 09/13/16 09/13/16 09/13/16 07:30 07:30 07:30 WBC RBC Hgb Hct MCV MCHC RDW Plt Count MPV INR 1.16 H PTT (Actin FS) 37.0 H Mix INR Baseline 1.13 H PTT Mix w Anti Prot C 33.1 Fibrinogen 367.0 Sodium 137 Potassium 4.3 Chloride 101 Carbon Dioxide 28 Anion Gap 8 BUN 12 Creatinine 0.4 L D Random Glucose 81 Calcium 8.8 Magnesium 2.2 Yqul-3-Pyktcsqwcqca Xlfb-4-Vcwslpcxhool Ab Beta-2-GPI IgM Ab Blood Type O POSITIVE Antibody Screen Negative Crossmatch IS Only See Detail Active Medications Generic Name Dose Route Start Last Admin Trade Name Freq PRN Reason Stop Dose Admin Fentanyl 50 mcg 09/13/16 12:15 09/13/16 13:30 Sublimaze Injection - IVPUSH 09/16/16 12:16 50 mcg [id number] PRN Administration PAIN Fluticasone Propionate 1 spray 09/13/16 22:00 Flonase - NS BID TRUDY Hydromorphone HCl 1 mg 09/13/16 12:08 Dilaudid Injection - IVPB Q4H PRN PAIN LEVEL 6-10 Aztreonam 1 gm/ Dextrose 50 mls @ 100 mls/hr 09/13/16 18:00 IVPB Q8H-IV TRUDY Potassium Chloride 20 meq/ 1,010 mls @ 84 mls/hr 09/13/16 16:00 Amino Acids IVPB Q12H TRUDY Metronidazole 100 mls @ 100 mls/hr 09/13/16 18:00 Flagyl 500mg Premixed Ivpb - IVPB Q8H-IV TRUDY Pantoprazole Sodium 100 mls @ 200 mls/hr 09/13/16 22:00 Protonix 40mg Ivpb (Pre-Docked) IVPB BID TRUDY Lactated Ringer's 1,000 mls @ 75 mls/hr 09/13/16 13:45 Lactated Ringers Solution IV ASDIR TRUDY Dextrose 1,000 mls @ 83 mls/hr 09/13/16 17:15 D5w - IV .Q12H3M TRUDY Levetiracetam 500 mg 09/13/16 22:00 Keppra Injection - IVPB BID TRUDY Morphine Sulfate 2 mg 09/13/16 12:07 09/13/16 16:18 Morphine Injection - IVPUSH 2 mg Q3H PRN Administration PAIN Ondansetron HCl 4 mg 09/13/16 12:15 Zofran Injection IVPUSH 09/13/16 18:16 Q6H PRN NAUSEA AND/OR VOMITING Phenobarbital 60 mg 09/13/16 22:00 Phenobarbital Injection - IVPB HS TRUDY Phenobarbital 40 mg 09/14/16 10:00 Phenobarbital Injection - IVPB DAILY [facility] Phytonadione 5 mg 09/14/16 10:00 Aqua Mephyton Injection - SQ 09/14/16 10:01 DAILY TRUDY Polyethylene Glycol 17 gm 09/14/16 10:00 Miralax (For Daily Use) - PEG DAILY [facility] Silver Sulfadiazine 1 applic 09/14/16 10:00 Silvadene - TP DAILY [facility] Simethicone 80 mg 09/13/16 18:00 Mylicon Liquid - GT Q6HPO [facility] ASSESSMENT/PLAN: 21 year old male with PMH 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 Plan: 1. Sepsis secondary to pneumonia - Cont Aztreonam/Flagyl -ID following 2. Abdominal distention from sigmoid volvulus vs obstruction -Ex-lap performed, subtotal colectomy and creation of end ileostomy performed on 09/13 -ordered for D5 @ 80cc/hr to prevent hypoglycemia 3. Mild coagulopathy -coagulation studies repeat, abnormal results -received FFP pre and post surgery -heme following 4. Anemia -iron deficiency - Give venofer as needed. 5. PU stage 2 sacrum - Allevyn dressing 6. Seizure disorder - Cont home keppra dose - Cont phenobarbital doses 7. Functional quadriplegia - pt is unable to feed self, turn or toilet independently, dependent on staff for all ADLS - high risk for aspiration pneumonia, pressure ulcers. - cont to provide supportive care Visit type - Emergency Visit Emergency Visit: Yes ED Registration Date: 09/06/16 Care time: The patient presented to the Emergency Department on the above date and was hospitalized for further evaluation of their emergent condition. - New Patient This patient is new to me today: No - Critical Care Critical Care patient: No
--- NOTE | 2016-09-13 19:04 | PN ---
Progress Note (short form) - Note Progress Note: Patient seen and examined s/p surgery,exlap, subtotal colectomy, ileostomy Last Vital Signs Temp Pulse Resp BP Pulse Ox 97.9 F 96 H 20 100/76 98 09/13/16 16:30 09/13/16 16:30 09/13/16 16:30 09/13/16 16:30 09/13/16 15:00 downs syndrome facies contracures arms/legs Cor: RSR, No murmurs, No gallops Lungs: Clear to P&A Abd: Soft,nondistended, surgical incision +, ileostomy+ G tube Ext:No significant edema Abnormal Lab Results 09/13/16 09/13/16 09/13/16 07:30 07:30 07:30 WBC 2.9 L RBC 3.62 L Hgb 9.5 L Hct 29.8 L MCHC 31.8 L Plt Count 485 H INR PTT (Actin FS) Mix INR Baseline Creatinine 0.4 L D Crossmatch IS Only See Detail 09/13/16 07:30 WBC RBC Hgb Hct MCHC Plt Count INR 1.16 H PTT (Actin FS) 37.0 H Mix INR Baseline 1.13 H Creatinine Crossmatch IS Only Current Medications Fentanyl (Sublimaze Injection -) 50 mcg IVPUSH [id number] PRN PRN Reason: PAIN Stop: 09/16/16 12:16 Last Admin: 09/13/16 13:30 Dose: 50 mcg Fluticasone Propionate (Flonase -) 1 spray NS BID [facility] Hydromorphone HCl (Dilaudid Injection -) 1 mg IVPB Q4H PRN PRN Reason: PAIN LEVEL 6-10 Aztreonam 1 gm/ Dextrose 50 mls @ 100 mls/hr IVPB Q8H-IV [facility] Last Admin: 09/13/16 18:11 Dose: 100 mls/hr Potassium Chloride 20 meq/ (Amino Acids) 1,010 mls @ 84 mls/hr IVPB Q12H [facility] Last Admin: 09/13/16 18:10 Dose: 84 mls/hr Metronidazole (Flagyl 500mg Premixed Ivpb -) 100 mls @ 100 mls/hr IVPB Q8H-IV [facility] Last Admin: 09/13/16 18:11 Dose: 100 mls/hr Pantoprazole Sodium (Protonix 40mg Ivpb (Pre-Docked)) 100 mls @ 200 mls/hr IVPB BID [facility] Levetiracetam (Keppra Injection -) 500 mg IVPB BID [facility] Morphine Sulfate (Morphine Injection -) 2 mg IVPUSH Q3H PRN PRN Reason: PAIN Last Admin: 09/13/16 16:18 Dose: 2 mg Phenobarbital (Phenobarbital Injection -) 60 mg IVPB HS [facility] Phenobarbital (Phenobarbital Injection -) 40 mg IVPB DAILY [facility] Phytonadione (Aqua Mephyton Injection -) 5 mg SQ DAILY [facility] Stop: 09/14/16 10:01 Polyethylene Glycol (Miralax (For Daily Use) -) 17 gm PEG DAILY [facility] Silver Sulfadiazine (Silvadene -) 1 applic TP DAILY [facility] Simethicone (Mylicon Liquid -) 80 mg GT Q6HPO [facility] Last Admin: 09/13/16 18:11 Dose: Not Given ASSESSMENT/PLAN: 21yM with PMH 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 Being planned for volvulus surgery Elevated PTT-- mixing study in the past --correction with one and noncorrection with other factor VIII/XI,X , V all borderline low neg. lupus anticoagulant ? inhibitor effect---check anticardiolipin profile ? liver disease ? artifactual s/p FFP--3 units pre and 2 units post will check PT/PTT and decide on further. no active bleeding
[2016-09-13 21:11] LABS: BASOPHIL 0.1 % (0-2.0); MCH 24.9 pg (25.7-33.7); MCHC 30.9 g/dl (32.0-35.9); MEAN CELL VOLUME 80.6 fl (80-96); MEAN PLT VOLUME 9.1 fl (7.5-11.1); PLATELET COUNT 462 K/MM3 (134-434); RDW 15.4 % (11.9-15.9); WHITE BLOOD COUNT 10.7 K/mm3 (4.0-10.0)
[2016-09-13] MEDS: PANTOPRAZOLE SODIUM 40MG/100 ML IVPB SCH (21:16)
[2016-09-13 21:31] LABS: INR 1.15 (0.82-1.09); PROTHROMBIN TIME (PATIENT) 12.7 SEC (9.98-11.88)
[2016-09-13 21:33] LABS: ACTIVATED PTT 38.4 SECONDS (26.9-34.4)
[2016-09-14] MEDS: AZTREONAM 1 GM in DEXTROSE 5%-WATER - 50 ML IVPB SCH ×2 (02:00→13:58)
[2016-09-14] MEDS: METRONIDAZOLE 500 MG PREMIXED 100 ML IVPB SCH ×3 (02:03→18:16)
[2016-09-14 06:06] LABS: COAGULATION FACTOR VII 26 % (51-186); FACTOR VIII 92 % (57-163)
[2016-09-14] MEDS: SIMETHICONE 40 MG/0.6 ML BOTTLE GT SCH ×4 (06:52→18:16)
[2016-09-14 08:30] LABS: MCH 27.4 pg (25.7-33.7); MCHC 33.3 g/dl (32.0-35.9); MEAN CELL VOLUME 82.3 fl (80-96); PLATELET COUNT 410 K/MM3 (134-434); RDW 16.6 % (11.9-15.9); WHITE BLOOD COUNT 7.4 K/mm3 (4.0-10.0)
[2016-09-14 08:41] LABS: INR 1.23 (0.82-1.09); PROTHROMBIN TIME (PATIENT) 13.6 SEC (9.98-11.88)
--- NOTE | 2016-09-14 09:14 | PN ---
Progress Note (short form) - Note Progress Note: Patient seen and examined. Nonverbal, appears to be resting comfortably. Last Vital Signs Temp Pulse Resp BP Pulse Ox 99.5 F 93 H 20 124/63 98 09/14/16 06:00 09/14/16 06:00 09/14/16 06:00 09/14/16 06:00 09/13/16 21:00 CBC, BMP 09/14/16 06:40 Dao output: 900 ml over 12 hours PE: Gen: NAD, nonverbal at baseline, appears comfortable Abd: Soft, nondistended, ileostomy pink, protruding, mildly edematous, with serosanguineous drainage in ostomy bag, midline incision clean, dry, with eli intact, G tube in place LE: Athrombics in place Problem List - Problems (1) Sigmoid volvulus Assessment/Plan: POD# 1 s/p exploratory laparotomy, subtotal colectomy, creation end ileostomy Dressings changed on rounds Resume tube feeds at low rate and titrate as tolerated D/C Dao Pain control, consider Ofirmev Followup labs, BMP Code(s): K56.2 - VOLVULUS (2) Colon distention Code(s): K63.89 - OTHER SPECIFIED DISEASES OF INTESTINE (3) Pseudo-obstruction of intestine Code(s): K59.8 - OTHER SPECIFIED FUNCTIONAL INTESTINAL DISORDERS
[2016-09-14 09:17] LABS: ALBUMIN 3.5 g/dl (3.4-5.0); ALK PHOS 96 U/L (45-117); ANION GAP 9 (8-16); BILIRUBIN,TOTAL 0.6 mg/dL (0.2-1.0); CALCIUM 9.2 mg/dL (8.5-10.1); CO2 27 mmol/L (21-32); CREATININE 0.3 mg/dL (0.7-1.3); GLUCOSE,RANDOM 68 mg/dL (74-106); MAGNESIUM 1.9 mg/dL (1.8-2.4); SGOT/AST 27 U/L (15-37); SGPT/ALT 25 U/L (12-78); TOT PROT 7.3 g/dl (6.4-8.2)
[2016-09-14] MEDS ORDERED: PHYTONADIONE 10 MG/1 ML AMP SQ SCH (10:00)
[2016-09-14] MEDS: POTASSIUM CHLORIDE 20 MEQ in AMINO ACIDS 4.25%/D5W 1,000 ML IVPB SCH ×2 (10:36→16:37)
[2016-09-14] MEDS: FLUTICASONE PROP 0.05% 16 GM NASAL SPRAY NS SCH ×3 (10:36→23:01)
--- NOTE | 2016-09-14 11:25 | PN ---
GI Progress Note Subjective: GI Note: Surgical efforts are appreciated. Apparently no gastric outlet obstruction found which suggests that the G tube is causing an acute gastric angulation. Will do a UGI when patient is able to be fed again. - Objective Vital Signs: Vital Signs Temperature 99.5 F 09/14/16 06:00 Pulse Rate 88 09/14/16 10:24 Respiratory Rate 20 09/14/16 06:00 Blood Pressure 124/63 09/14/16 06:00 O2 Sat by Pulse Oximetry (%) 99 09/14/16 10:24 CBC, BMP 09/14/16 06:40 09/14/16 06:40 Gastrointestinal Inspection: Yes: Scars (RLQ ileostomy has only a small amount of serosanguinous fluid, incision bandaged) ...Auscultate: Yes: Hypoactive Bowel Sounds Labs: CBC, BMP 09/14/16 06:40 09/14/16 06:40 INR, PTT INR 1.23 (0.82-1.09) H 09/14/16 06:40 Fibrinogen 350.0 mg/dL (238-498) 09/13/16 19:20 Assessment/Plan Postop day #1 following subtotal colectomy. Postop management as per the surgical team. Problem List - Problems (1) Sigmoid volvulus Code(s): K56.2 - VOLVULUS (2) Stercoral ulcer of rectum Code(s): K62.6 - ULCER OF ANUS AND RECTUM (3) Gastric hourglass stricture or stenosis Code(s): K31.2 - HOURGLASS STRICTURE AND STENOSIS OF STOMACH (4) Sigmoid polyp Code(s): D12.5 - BENIGN NEOPLASM OF SIGMOID COLON (5) H/O Mackenzie-Guillen syndrome Code(s): Z87.19 - PERSONAL HISTORY OF OTHER DISEASES OF THE DIGESTIVE SYSTEM
--- NOTE | 2016-09-14 12:41 | PATH ---
Surgical Pathology Report Patient Name: ANGELA ASHER [facility]. Rec. #: [id number] /Age/Gender: 1995 (Age: 21) / M Account: [id number] Location: [facility]URG Taken: 09/13/2016 Received: 09/13/2016 Reported: 09/14/2016 Physicians: MD Gaurang Garcia F.N.P. Orest Kozicky, M.D. Specimen(s) Received SUBTOTAL COLECTOMY Clinical History Sigmoid volvulus Final Diagnosis COLON, APPENDIX AND TERMINAL ILEUM, SUBTOTAL COLECTOMY: MARKEDLY DILATED COLON (MEGACOLON) WITH FOCI OF VASCULAR CONGESTION. ILEUM WITH FOCAL MILD NONSPECIFIC ACTIVE ILEITIS. NO MALIGNANCY IDENTIFIED. MULTIPLE BENIGN LYMPH NODES. SURGICAL RESECTION MARGINS APPEAR VIABLE. Electronically Signed Teo Lion M.D. Gross Description Received fresh, labeled "subtotal colectomy" is a 3 cm in length portion of terminal ileum with an attached 125 cm in length portion of large bowel. The specimen displays 2 stapled mucosal margins as well as minimal attached fat. There is a 7 cm in length unremarkable vermiform appendix attached to the cecum. The large bowel is markedly dilated to 12 cm in diameter. The serosa is pink-randolph, smooth and focally congested. The mucosa is randolph with preserved folds and focally congested. No mucosal masses are identified. The pericolonic adipose tissue displays multiple palpable lymph nodes. Gold Prospector sections are submitted 17 cassettes as follows: 1-terminal ileal mucosal margin; 2-distal mucosal margin; 3-appendix; 4-financial representative terminal ileum; 5-cecum; 6-13-ziypxnfzchasky large bowel sequentially submitted from proximal to distal; 13-17-one lymph node each. 09/13/2016 saudi09/13/2016
[2016-09-14] MEDS: PHENobarbital SODIUM 65 MG/1 ML VIAL IVPB SCH ×2 (12:55→21:11)
[2016-09-14] MEDS ORDERED: PT OWN MED DRAWER 7, Y5N ONE ×5 (13:15→22:46)
[2016-09-14] MEDS: levETIRAcetam 500 MG/5 ML INJECTION VIAL IVPB SCH ×2 (13:23→22:51)
[2016-09-14] MEDS: PANTOPRAZOLE SODIUM 40MG/100 ML IVPB SCH ×2 (14:37→22:39)
[2016-09-14] MEDS: POLYETHYLENE GLYCOL 3350 119 GM BTL PEG SCH (14:38)
[2016-09-14] MEDS: SILVER SULFADIAZINE 1% TOP CREAM 50 GM JAR TP SCH (16:38)
--- NOTE | 2016-09-14 16:49 | PN ---
Progress Note, Physician History of Present Illness: stable no new issues patient for or tomorrow - Current Medication List Current Medications: Active Medications Fentanyl (Sublimaze Injection -) 50 mcg IVPUSH [id number] PRN PRN Reason: PAIN Stop: 09/16/16 12:16 Last Admin: 09/13/16 13:30 Dose: 50 mcg Fluticasone Propionate (Flonase -) 1 spray NS BID [facility] Last Admin: 09/14/16 13:22 Dose: 1 spray Hydromorphone HCl (Dilaudid Injection -) 1 mg IVPB Q4H PRN PRN Reason: PAIN LEVEL 6-10 Aztreonam 1 gm/ Dextrose 50 mls @ 100 mls/hr IVPB Q8H-IV [facility] Last Admin: 09/14/16 13:58 Dose: 100 mls/hr Potassium Chloride 20 meq/ (Amino Acids) 1,010 mls @ 84 mls/hr IVPB Q12H [facility] Last Admin: 09/14/16 16:37 Dose: Not Given Metronidazole (Flagyl 500mg Premixed Ivpb -) 100 mls @ 100 mls/hr IVPB Q8H-IV [facility] Last Admin: 09/14/16 10:37 Dose: 100 mls/hr Pantoprazole Sodium (Protonix 40mg Ivpb (Pre-Docked)) 100 mls @ 200 mls/hr IVPB BID [facility] Last Admin: 09/14/16 14:37 Dose: 200 mls/hr Levetiracetam (Keppra Injection -) 500 mg IVPB BID [facility] Last Admin: 09/14/16 13:23 Dose: 500 mg Morphine Sulfate (Morphine Injection -) 2 mg IVPUSH Q3H PRN PRN Reason: PAIN Last Admin: 09/13/16 16:18 Dose: 2 mg Phenobarbital (Phenobarbital Injection -) 60 mg IVPB HS [facility] Last Admin: 09/13/16 21:16 Dose: 60 mg Phenobarbital (Phenobarbital Injection -) 40 mg IVPB DAILY [facility] Last Admin: 09/14/16 12:55 Dose: 40 mg Polyethylene Glycol (Miralax (For Daily Use) -) 17 gm PEG DAILY [facility] Last Admin: 09/14/16 14:38 Dose: 17 grams Silver Sulfadiazine (Silvadene -) 1 applic TP DAILY [facility] Last Admin: 09/14/16 16:38 Dose: 1 applic Simethicone (Mylicon Liquid -) 80 mg GT Q6HPO [facility] Last Admin: 09/14/16 14:40 Dose: 80 mg - Objective Vital Signs: Vital Signs Temperature 99.5 F 09/14/16 14:57 Pulse Rate 89 09/14/16 14:57 Respiratory Rate 20 09/14/16 14:57 Blood Pressure 119/64 09/14/16 14:57 O2 Sat by Pulse Oximetry (%) 99 09/14/16 10:24 Constitutional: Yes: No Distress, Calm Neck: Yes: Supple Cardiovascular: Yes: Regular Rate and Rhythm Respiratory: Yes: Regular, Poor Air Entry Gastrointestinal: Yes: Normal Bowel Sounds, Soft Extremities: Yes: Other Neurological: Yes: Alert Labs: CBC, BMP 09/14/16 06:40 09/14/16 06:40 INR, PTT INR 1.23 (0.82-1.09) H 09/14/16 06:40 Fibrinogen 350.0 mg/dL (238-498) 09/13/16 19:20 Assessment/Plan 21yM with PMH 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 He is being admitted for sepsis. Sepsis secondary to pneumonia vs acute abdominal pathology Abdominal distention/volvulus anemia PU stage 2 sacrum seizure disorder functional quadriplegia plan continue current mgmt await for surgery
--- NOTE | 2016-09-14 16:52 | PN ---
Progress Note, Physician History of Present Illness: stable no new events - Current Medication List Current Medications: Active Medications Fentanyl (Sublimaze Injection -) 50 mcg IVPUSH [id number] PRN PRN Reason: PAIN Stop: 09/16/16 12:16 Last Admin: 09/13/16 13:30 Dose: 50 mcg Fluticasone Propionate (Flonase -) 1 spray NS BID [facility] Last Admin: 09/14/16 13:22 Dose: 1 spray Hydromorphone HCl (Dilaudid Injection -) 1 mg IVPB Q4H PRN PRN Reason: PAIN LEVEL 6-10 Aztreonam 1 gm/ Dextrose 50 mls @ 100 mls/hr IVPB Q8H-IV [facility] Last Admin: 09/14/16 13:58 Dose: 100 mls/hr Potassium Chloride 20 meq/ (Amino Acids) 1,010 mls @ 84 mls/hr IVPB Q12H [facility] Last Admin: 09/14/16 16:37 Dose: Not Given Metronidazole (Flagyl 500mg Premixed Ivpb -) 100 mls @ 100 mls/hr IVPB Q8H-IV [facility] Last Admin: 09/14/16 10:37 Dose: 100 mls/hr Pantoprazole Sodium (Protonix 40mg Ivpb (Pre-Docked)) 100 mls @ 200 mls/hr IVPB BID [facility] Last Admin: 09/14/16 14:37 Dose: 200 mls/hr Levetiracetam (Keppra Injection -) 500 mg IVPB BID [facility] Last Admin: 09/14/16 13:23 Dose: 500 mg Morphine Sulfate (Morphine Injection -) 2 mg IVPUSH Q3H PRN PRN Reason: PAIN Last Admin: 09/13/16 16:18 Dose: 2 mg Phenobarbital (Phenobarbital Injection -) 60 mg IVPB HS [facility] Last Admin: 09/13/16 21:16 Dose: 60 mg Phenobarbital (Phenobarbital Injection -) 40 mg IVPB DAILY [facility] Last Admin: 09/14/16 12:55 Dose: 40 mg Polyethylene Glycol (Miralax (For Daily Use) -) 17 gm PEG DAILY [facility] Last Admin: 09/14/16 14:38 Dose: 17 grams Silver Sulfadiazine (Silvadene -) 1 applic TP DAILY [facility] Last Admin: 09/14/16 16:38 Dose: 1 applic Simethicone (Mylicon Liquid -) 80 mg GT Q6HPO [facility] Last Admin: 09/14/16 14:40 Dose: 80 mg - Objective Vital Signs: Vital Signs Temperature 99.5 F 09/14/16 14:57 Pulse Rate 89 09/14/16 14:57 Respiratory Rate 20 09/14/16 14:57 Blood Pressure 119/64 09/14/16 14:57 O2 Sat by Pulse Oximetry (%) 99 09/14/16 10:24 Constitutional: Yes: No Distress, Calm Cardiovascular: Yes: Regular Rate and Rhythm Respiratory: Yes: Regular Gastrointestinal: Yes: Soft, Hypoactive Bowel Sounds Musculoskeletal: Yes: Other Extremities: Yes: Other Neurological: Yes: Alert, Other Labs: CBC, BMP 09/14/16 06:40 09/14/16 06:40 INR, PTT INR 1.23 (0.82-1.09) H 09/14/16 06:40 Fibrinogen 350.0 mg/dL (238-498) 09/13/16 19:20 Assessment/Plan 21yM with PMH 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 He is being admitted for sepsis. Sepsis secondary to pneumonia vs acute abdominal pathology Abdominal distention/volvulus anemia PU stage 2 sacrum seizure disorder functional quadriplegia plan stopped azactam will stop flagyl tomorrow
--- NOTE | 2016-09-14 20:03 | PN ---
Progress Note (short form) - Note Progress Note: Patient seen and examined s/p surgery,exlap, subtotal colectomy, ileostomy Last Vital Signs Temp Pulse Resp BP Pulse Ox 98.6 F 86 18 123/62 99 09/14/16 16:30 09/14/16 16:30 09/14/16 16:30 09/14/16 16:30 09/14/16 10:24 downs syndrome facies contracures arms/legs Cor: RSR, No murmurs, No gallops Lungs: Clear to P&A Abd: Soft,nondistended, surgical incision +, ileostomy+ G tube Ext:No significant edema Abnormal Lab Results 09/10/16 09/13/16 09/13/16 10:24 07:30 19:20 WBC RBC Hgb Hct MCHC RDW Plt Count Neutrophils % Lymphocytes % INR 1.15 H PTT (Actin FS) 38.4 H Factor VII 26 L Sodium Creatinine Random Glucose Crossmatch IS Only See Detail 09/13/16 09/14/16 09/14/16 19:20 06:40 06:40 WBC 10.7 H D RBC 3.14 L 3.45 L Hgb 7.8 L D 9.5 L D Hct 25.3 L D 28.4 L MCHC 30.9 L RDW 16.6 H Plt Count 462 H Neutrophils % 90.0 H D Lymphocytes % 5.9 L D INR 1.23 H PTT (Actin FS) Factor VII Sodium Creatinine Random Glucose Crossmatch IS Only 09/14/16 06:40 WBC RBC Hgb Hct MCHC RDW Plt Count Neutrophils % Lymphocytes % INR PTT (Actin FS) Factor VII Sodium 135 L Creatinine 0.3 L D Random Glucose 68 L Crossmatch IS Only Current Medications Fentanyl (Sublimaze Injection -) 50 mcg IVPUSH [id number] PRN PRN Reason: PAIN Stop: 09/16/16 12:16 Last Admin: 09/13/16 13:30 Dose: 50 mcg Fluticasone Propionate (Flonase -) 1 spray NS BID [facility] Last Admin: 09/14/16 13:22 Dose: 1 spray Hydromorphone HCl (Dilaudid Injection -) 1 mg IVPB Q4H PRN PRN Reason: PAIN LEVEL 6-10 Potassium Chloride 20 meq/ (Amino Acids) 1,010 mls @ 84 mls/hr IVPB Q12H [facility] Last Admin: 09/14/16 16:37 Dose: Not Given Metronidazole (Flagyl 500mg Premixed Ivpb -) 100 mls @ 100 mls/hr IVPB Q8H-IV [facility] Last Admin: 09/14/16 18:16 Dose: 100 mls/hr Pantoprazole Sodium (Protonix 40mg Ivpb (Pre-Docked)) 100 mls @ 200 mls/hr IVPB BID [facility] Last Admin: 09/14/16 14:37 Dose: 200 mls/hr Levetiracetam (Keppra Injection -) 500 mg IVPB BID [facility] Last Admin: 09/14/16 13:23 Dose: 500 mg Morphine Sulfate (Morphine Injection -) 2 mg IVPUSH Q3H PRN PRN Reason: PAIN Last Admin: 09/13/16 16:18 Dose: 2 mg Phenobarbital (Phenobarbital Injection -) 60 mg IVPB HS [facility] Last Admin: 09/13/16 21:16 Dose: 60 mg Phenobarbital (Phenobarbital Injection -) 40 mg IVPB DAILY [facility] Last Admin: 09/14/16 12:55 Dose: 40 mg Polyethylene Glycol (Miralax (For Daily Use) -) 17 gm PEG DAILY [facility] Last Admin: 09/14/16 14:38 Dose: 17 grams Silver Sulfadiazine (Silvadene -) 1 applic TP DAILY [facility] Last Admin: 09/14/16 16:38 Dose: 1 applic Simethicone (Mylicon Liquid -) 80 mg GT Q6HPO [facility] Last Admin: 09/14/16 18:16 Dose: 80 mg ASSESSMENT/PLAN: 21yM with PMH 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 Being planned for volvulus surgery Elevated PTT-- mixing study in the past --correction with one and noncorrection with other factor VIII/XI,X , V all borderline low neg. lupus anticoagulant ? inhibitor effect---check anticardiolipin profile ? liver disease ? artifactual s/p FFP --7 units s/p PRBCs 1 unit stable
--- NOTE | 2016-09-14 20:26 | PN ---
Physical Exam: SUBJECTIVE: Patient seen and examined. POD #1 OBJECTIVE: Vital Signs Period Temp Pulse Resp BP Sys/Begum Pulse Ox Last 24 Hr 98.6 F-99.5 F 79-93 18-20 119-127/62-77 98-100 Gen: non verbal, awake, alert. Awake, alert Pulm: decreased BS bilateral. on NC CV: regular, no murmurs Abd: soft, NT, +colostomy, +C/D/I s/p ex-lap Ex: warm, no edema . Thin extremities : Bailey in place draining clear yellow urine Laboratory Results - last 24 hr 09/10/16 09/10/16 09/13/16 10:24 10:24 07:30 WBC RBC Hgb Hct MCV MCHC RDW Plt Count MPV Neutrophils % Lymphocytes % Monocytes % Eosinophils % Basophils % INR PTT (Actin FS) Fibrinogen Factor VII 26 L Factor VIII 92 Sodium Potassium Chloride Carbon Dioxide Anion Gap BUN Creatinine Creat Clearance w eGFR Random Glucose Calcium Magnesium Total Bilirubin AST ALT Alkaline Phosphatase Total Protein Albumin Anti-Cardiolipin IgG Ab <9 Anti-Cardiolipin IgA Ab <9 Anti-Cardiolipin IgM Ab <9 Blood Type O POSITIVE Antibody Screen Negative Crossmatch IS Only See Detail 09/13/16 09/13/16 09/14/16 19:20 19:20 06:40 WBC 10.7 H D 7.4 D RBC 3.14 L 3.45 L Hgb 7.8 L D 9.5 L D Hct 25.3 L D 28.4 L MCV 80.6 82.3 MCHC 30.9 L 33.3 RDW 15.4 16.6 H Plt Count 462 H 410 MPV 9.1 9.0 Neutrophils % 90.0 H D Lymphocytes % 5.9 L D Monocytes % 4.0 Eosinophils % 0.0 D Basophils % 0.1 INR 1.15 H PTT (Actin FS) 38.4 H Fibrinogen 350.0 Factor VII Factor VIII Sodium Potassium Chloride Carbon Dioxide Anion Gap BUN Creatinine Creat Clearance w eGFR Random Glucose Calcium Magnesium Total Bilirubin AST ALT Alkaline Phosphatase Total Protein Albumin Anti-Cardiolipin IgG Ab Anti-Cardiolipin IgA Ab Anti-Cardiolipin IgM Ab Blood Type Antibody Screen Crossmatch IS Only 09/14/16 09/14/16 06:40 06:40 WBC RBC Hgb Hct MCV MCHC RDW Plt Count MPV Neutrophils % Lymphocytes % Monocytes % Eosinophils % Basophils % INR 1.23 H PTT (Actin FS) Fibrinogen Factor VII Factor VIII Sodium 135 L Potassium 4.0 Chloride 99 Carbon Dioxide 27 Anion Gap 9 BUN 11 Creatinine 0.3 L D Creat Clearance w eGFR > 60 Random Glucose 68 L Calcium 9.2 Magnesium 1.9 Total Bilirubin 0.6 D AST 27 ALT 25 Alkaline Phosphatase 96 D Total Protein 7.3 D Albumin 3.5 D Anti-Cardiolipin IgG Ab Anti-Cardiolipin IgA Ab Anti-Cardiolipin IgM Ab Blood Type Antibody Screen Crossmatch IS Only Active Medications Generic Name Dose Route Start Last Admin Trade Name Freq PRN Reason Stop Dose Admin Fentanyl 50 mcg 09/13/16 12:15 09/13/16 13:30 Sublimaze Injection - IVPUSH 09/16/16 12:16 50 mcg [id number] PRN Administration PAIN Fluticasone Propionate 1 spray 09/13/16 22:00 09/14/16 13:22 Flonase - NS 1 spray BID [facility] Administration Hydromorphone HCl 1 mg 09/13/16 12:08 Dilaudid Injection - IVPB Q4H PRN PAIN LEVEL 6-10 Potassium Chloride 20 meq/ 1,010 mls @ 84 mls/hr 09/13/16 16:00 09/14/16 16:37 Amino Acids IVPB Not Given Q12H [facility] Metronidazole 100 mls @ 100 mls/hr 09/13/16 18:00 09/14/16 18:16 Flagyl 500mg Premixed Ivpb - IVPB 100 mls/hr Q8H-IV [facility] Administration Pantoprazole Sodium 100 mls @ 200 mls/hr 09/13/16 22:00 09/14/16 14:37 Protonix 40mg Ivpb (Pre-Docked) IVPB 200 mls/hr BID [facility] Administration Levetiracetam 500 mg 09/13/16 22:00 09/14/16 13:23 Keppra Injection - IVPB 500 mg BID [facility] Administration Morphine Sulfate 2 mg 09/13/16 12:07 09/13/16 16:18 Morphine Injection - IVPUSH 2 mg Q3H PRN Administration PAIN Phenobarbital 60 mg 09/13/16 22:00 09/13/16 21:16 Phenobarbital Injection - IVPB 60 mg HS [facility] Administration Phenobarbital 40 mg 09/14/16 10:00 09/14/16 12:55 Phenobarbital Injection - IVPB 40 mg DAILY [facility] Administration Polyethylene Glycol 17 gm 09/14/16 10:00 09/14/16 14:38 Miralax (For Daily Use) - PEG 17 grams DAILY [facility] Administration Silver Sulfadiazine 1 applic 09/14/16 10:00 09/14/16 16:38 Silvadene - TP 1 applic DAILY [facility] Administration Simethicone 80 mg 09/13/16 18:00 09/14/16 18:16 Mylicon Liquid - GT 80 mg Q6HPO [facility] Administration ASSESSMENT/PLAN: 21 year old male with PMH 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 Plan: 1. Sepsis secondary to pneumonia - Aztreonam stopped on 09/14 -Plan to stop flagyl on 09/15 -ID following 2. Abdominal distention from sigmoid volvulus vs obstruction -Ex-lap performed, subtotal colectomy and creation of end ileostomy performed on 09/13 -no gastric outlet obstruction noted during ex-lap, GI plans to do an UGI in the near future, discuss scheduling -bailey placed during OR, order placed to discontinue -if no issues with G-tube consider switching meds to via G-tube. 3. Mild coagulopathy -coagulation studies repeat, abnormal results -received FFP pre and post surgery -heme following 4. Anemia -iron deficiency - Give venofer as needed. 5. PU stage 2 sacrum - Allevyn dressing 6. Seizure disorder - Cont home keppra dose - Cont phenobarbital doses 7. Functional quadriplegia - pt is unable to feed self, turn or toilet independently, dependent on staff for all ADLS - high risk for aspiration pneumonia, pressure ulcers. - cont to provide supportive care Visit type - Emergency Visit Emergency Visit: Yes ED Registration Date: 09/06/16 Care time: The patient presented to the Emergency Department on the above date and was hospitalized for further evaluation of their emergent condition. - New Patient This patient is new to me today: No - Critical Care Critical Care patient: No
[2016-09-15] MEDS: SIMETHICONE 40 MG/0.6 ML BOTTLE GT SCH ×4 (00:45→18:32)
[2016-09-15] MEDS: METRONIDAZOLE 500 MG PREMIXED 100 ML IVPB SCH ×2 (01:29→10:57)
[2016-09-15] MEDS: POTASSIUM CHLORIDE 20 MEQ in AMINO ACIDS 4.25%/D5W 1,000 ML IVPB SCH ×2 (03:00→18:33)
[2016-09-15 08:22] LABS: MCH 27.6 pg (25.7-33.7); MCHC 33.1 g/dl (32.0-35.9); MEAN CELL VOLUME 83.4 fl (80-96); PLATELET COUNT 461 K/MM3 (134-434); RDW 16.2 % (11.9-15.9); WHITE BLOOD COUNT 5.8 K/mm3 (4.0-10.0)
--- NOTE | 2016-09-15 08:38 | PN ---
Progress Note (short form) - Note Progress Note: POD #2 s/p exploratory laparotomy, subtotal colectomy, creation end ileostomy Alert. Doing well. No acute events per RN notes. Started GT feeds yesterday. Last Vital Signs Temp Pulse Resp BP Pulse Ox 98 F 101 H 18 111/73 99 09/15/16 04:00 09/15/16 04:00 09/15/16 04:00 09/15/16 04:00 09/14/16 21:00 CBC 09/15/16 06:00 PE GEN: Non-verbal. Awake. Alert. ABD: Soft. Midline incision...wound edges approximated with eli. Air in colostomy bag. Ostomy is viable (pink/protruding). G-tube in place LE: Warm. No edema or calf tenderness b/l (1) Sigmoid volvulus Assessment/Plan: POD# 2 s/p exploratory laparotomy, subtotal colectomy, creation end ileostomy Dressings changed on rounds. Cont GT feeds f/u bmp No further surgical intervention. Re-consult PRN Cont care as per primary team Code(s): K56.2 - VOLVULUS (2) Colon distention Code(s): K63.89 - OTHER SPECIFIED DISEASES OF INTESTINE (3) Pseudo-obstruction of intestine Code(s): K59.8 - OTHER SPECIFIED FUNCTIONAL INTESTINAL DISORDERS
[2016-09-15 08:52] LABS: ALBUMIN 2.9 g/dl (3.4-5.0); ANION GAP 9 (8-16); CALCIUM 8.5 mg/dL (8.5-10.1); CO2 25 mmol/L (21-32); GLUCOSE,RANDOM 94 mg/dL (74-106); MAGNESIUM 2.1 mg/dL (1.8-2.4)
[2016-09-15 08:55] LABS: ALK PHOS 78 U/L (45-117); BILIRUBIN,TOTAL 0.4 mg/dL (0.2-1.0); CREATININE 0.3 mg/dL (0.7-1.3); SGOT/AST 19 U/L (15-37); SGPT/ALT 21 U/L (12-78); TOT PROT 6.7 g/dl (6.4-8.2)
[2016-09-15 09:08] LABS: INR 1.28 (0.82-1.09); PROTHROMBIN TIME (PATIENT) 14.2 SEC (9.98-11.88)
[2016-09-15] MEDS: levETIRAcetam 500 MG/5 ML INJECTION VIAL IVPB SCH ×2 (10:43→21:55)
[2016-09-15] MEDS: POLYETHYLENE GLYCOL 3350 119 GM BTL PEG SCH (10:45)
[2016-09-15] MEDS: PANTOPRAZOLE SODIUM 40MG/100 ML IVPB SCH ×2 (10:57→22:40)
[2016-09-15] MEDS: PHENobarbital SODIUM 65 MG/1 ML VIAL IVPB SCH ×2 (10:58→23:11)
--- NOTE | 2016-09-15 11:01 | CONSULT ---
Consult - text type - Consultation Consultation Note: agree with Bill Camara' note. pt seen and examined. +Gas in bag. advance TF in PEG as tolerated. check residuals to make sure no high ileus. cont aspiration precautions. once stool in ileostomy bag and tolerated tube feeds can go back to his home. staple removal in 10-14 days postop. can remove at home.
--- NOTE | 2016-09-15 12:47 | PN ---
Progress Note, Physician History of Present Illness: patient stable surgical note noted - Current Medication List Current Medications: Active Medications Fentanyl (Sublimaze Injection -) 50 mcg IVPUSH [id number] PRN PRN Reason: PAIN Stop: 09/16/16 12:16 Last Admin: 09/13/16 13:30 Dose: 50 mcg Fluticasone Propionate (Flonase -) 1 spray NS BID [facility] Last Admin: 09/14/16 23:01 Dose: 1 spray Hydromorphone HCl (Dilaudid Injection -) 1 mg IVPB Q4H PRN PRN Reason: PAIN LEVEL 6-10 Potassium Chloride 20 meq/ (Amino Acids) 1,010 mls @ 84 mls/hr IVPB Q12H [facility] Last Admin: 09/15/16 03:00 Dose: 84 mls/hr Metronidazole (Flagyl 500mg Premixed Ivpb -) 100 mls @ 100 mls/hr IVPB Q8H-IV [facility]UDY Last Admin: 09/15/16 10:57 Dose: 100 mls/hr Pantoprazole Sodium (Protonix 40mg Ivpb (Pre-Docked)) 100 mls @ 200 mls/hr IVPB BID [facility] Last Admin: 09/15/16 10:57 Dose: 200 mls/hr Levetiracetam (Keppra Injection -) 500 mg IVPB BID [facility] Last Admin: 09/15/16 10:43 Dose: 500 mg Morphine Sulfate (Morphine Injection -) 2 mg IVPUSH Q3H PRN PRN Reason: PAIN Last Admin: 09/13/16 16:18 Dose: 2 mg Phenobarbital (Phenobarbital Injection -) 60 mg IVPB HS [facility] Last Admin: 09/14/16 21:11 Dose: 60 mg Phenobarbital (Phenobarbital Injection -) 40 mg IVPB DAILY [facility] Last Admin: 09/15/16 10:58 Dose: 40 mg Polyethylene Glycol (Miralax (For Daily Use) -) 17 gm PEG DAILY [facility] Last Admin: 09/15/16 10:45 Dose: 17 grams Silver Sulfadiazine (Silvadene -) 1 applic TP DAILY [facility] Last Admin: 09/14/16 16:38 Dose: 1 applic Simethicone (Mylicon Liquid -) 80 mg GT Q6HPO [facility] Last Admin: 09/15/16 07:08 Dose: Not Given - Objective Vital Signs: Vital Signs Temperature 98 F 09/15/16 04:00 Pulse Rate 83 09/15/16 11:19 Respiratory Rate 18 09/15/16 04:00 Blood Pressure 111/73 09/15/16 04:00 O2 Sat by Pulse Oximetry (%) 99 09/15/16 11:19 Constitutional: Yes: No Distress, Calm Cardiovascular: Yes: Regular Rate and Rhythm Respiratory: Yes: Poor Air Entry Gastrointestinal: Yes: Normal Bowel Sounds, Soft, Other (feeding tube in place) Musculoskeletal: Yes: WNL Extremities: Yes: WNL Neurological: Yes: Alert, Other Labs: CBC, BMP 09/15/16 06:00 09/15/16 06:00 INR, PTT INR 1.28 (0.82-1.09) H 09/15/16 06:00 Fibrinogen 350.0 mg/dL (238-498) 09/13/16 19:20 Assessment/Plan 21yM with PMH 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 He is being admitted for sepsis. Sepsis secondary to pneumonia vs acute abdominal pathology Abdominal distention/volvulus anemia PU stage 2 sacrum seizure disorder functional quadriplegia plan will stop flagyl surgery note noted continue current mgmt
[2016-09-15] MEDS: SILVER SULFADIAZINE 1% TOP CREAM 50 GM JAR TP SCH (13:13)
[2016-09-15] MEDS: FLUTICASONE PROP 0.05% 16 GM NASAL SPRAY NS SCH ×2 (18:31→22:55)
[2016-09-15] MEDS ORDERED: PT OWN MED DRAWER 7, Y5N ONE ×2 (18:36→20:22)
--- NOTE | 2016-09-15 18:50 | PN ---
Physical Exam: SUBJECTIVE: Patient seen and examined, nonverbal at baseline. POD#2 OBJECTIVE: Vital Signs 3 Period Temp Pulse Resp BP Sys/Begum Pulse Ox Last 24 Hr 97.7 F-98.5 F 82-101 18-18 102-122/64-73 99-99 GENERAL: The patient is awake, alert, nonverbal, in no acute distress. HEAD: Normal with no signs of trauma. EYES: PERRL, extraocular movements intact, sclera anicteric, conjunctiva clear. No ptosis. ENT: Ears normal, nares patent, oropharynx clear without exudates, moist mucous membranes. NECK: Trachea midline, full range of motion, supple. LUNGS: Breath sounds equal, clear to auscultation bilaterally, no wheezes, no crackles, no accessory muscle use. HEART: Regular rate and rhythm, S1, S2 without murmur, rub or gallop. ABDOMEN: Soft, nondistended, normoactive bowel sounds, no guarding, no rebound, no hepatosplenomegaly, no masses. tender to palpation. midline incision with eli intact, no erythema, RLQ ileostomy, bag with gas, no BM, small amount serosanguinous fluid. EXTREMITIES: 2+ pulses, warm, well-perfused, no edema. NEUROLOGICAL: Cranial nerves II through XII grossly intact. Normal speech, gait not observed. PSYCH: Normal mood, normal affect. SKIN: Warm, dry, normal turgor, no rashes or lesions noted Laboratory Results - last 24 hr 3 09/15/16 09/15/16 09/15/16 06:00 06:00 06:00 WBC 5.8 RBC 3.68 L Hgb 10.2 L Hct 30.7 L MCV 83.4 MCHC 33.1 RDW 16.2 H Plt Count 461 H MPV 9.0 INR 1.28 H Sodium 137 Potassium 4.6 Chloride 103 Carbon Dioxide 25 Anion Gap 9 BUN 11 Creatinine 0.3 L Creat Clearance w eGFR > 60 Random Glucose 94 D Calcium 8.5 Magnesium 2.1 Total Bilirubin 0.4 D AST 19 D ALT 21 Alkaline Phosphatase 78 Total Protein 6.7 Albumin 2.9 L Active Medications 3 Generic Name Dose Route Start Last Admin Trade Name Freq PRN Reason Stop Dose Admin Fentanyl 50 mcg 09/13/16 12:15 09/13/16 13:30 Sublimaze Injection - IVPUSH 09/16/16 12:16 50 mcg [id number] PRN Administration PAIN Fluticasone Propionate 1 spray 09/13/16 22:00 09/15/16 18:31 Flonase - NS 1 spray BID [facility]UD[facility] Administration Hydromorphone HCl 1 mg 09/13/16 12:08 Dilaudid Injection - IVPB Q4H PRN PAIN LEVEL 6-10 Potassium Chloride 20 meq/ 1,010 mls @ 84 mls/hr 09/13/16 16:00 09/15/16 18:33 Amino Acids IVPB 84 mls/hr Q12H TRUDY Administration Pantoprazole Sodium 100 mls @ 200 mls/hr 09/13/16 22:00 09/15/16 10:57 Protonix 40mg Ivpb (Pre-Docked) IVPB 200 mls/hr BID [facility] Administration Levetiracetam 500 mg 09/13/16 22:00 09/15/16 10:43 Keppra Injection - IVPB 500 mg BID [facility] Administration Morphine Sulfate 2 mg 09/13/16 12:07 09/13/16 16:18 Morphine Injection - IVPUSH 2 mg Q3H PRN Administration PAIN Phenobarbital 60 mg 09/13/16 22:00 09/14/16 21:11 Phenobarbital Injection - IVPB 60 mg HS TRUDY Administration Phenobarbital 40 mg 09/14/16 10:00 09/15/16 10:58 Phenobarbital Injection - IVPB 40 mg DAILY [facility] Administration Polyethylene Glycol 17 gm 09/14/16 10:00 09/15/16 10:45 Miralax (For Daily Use) - PEG 17 grams DAILY [facility] Administration Silver Sulfadiazine 1 applic 09/14/16 10:00 09/15/16 13:13 Silvadene - TP 1 applic DAILY [facility] Administration Simethicone 80 mg 09/13/16 18:00 09/15/16 18:32 Mylicon Liquid - GT 80 mg Q6HPO [facility]UD[facility] Administration ASSESSMENT/PLAN: 21 year old male with PMH 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 Sepsis secondary to pneumonia - Aztreonam completed on 09/14 - Flagyl completed 09/15 - ID following Abdominal distention from sigmoid volvulus vs obstruction - Ex-lap performed, subtotal colectomy and creation of end ileostomy performed on 09/13 - no gastric outlet obstruction noted during ex-lap, GI plans to do an UGI in the near future, can be scheduled outpatient - when tolerating feeds and producing stool may be DC - change meds to GT Mild coagulopathy - coagulation studies repeat, abnormal results - received FFP pre and post surgery - heme following Anemia - iron deficiency - Give venofer as needed. PU stage 2 sacrum - Allevyn dressing Seizure disorder - Cont home keppra dose - Cont phenobarbital doses DVT PPX - held due to coagulation disorder FEN - water via tube feed - Repeat BMP in am - cont tube feeding Dispo: pt continues to require inpatient care. Visit type - Emergency Visit Emergency Visit: Yes ED Registration Date: 09/06/16 Care time: The patient presented to the Emergency Department on the above date and was hospitalized for further evaluation of their emergent condition. - New Patient This patient is new to me today: No - Critical Care Critical Care patient: No - Discharge Referral Referred to [facility] No
[2016-09-16] MEDS: SIMETHICONE 40 MG/0.6 ML BOTTLE GT SCH ×4 (00:55→18:59)
[2016-09-16] MEDS ORDERED: PT OWN MED DRAWER 7, Y5N ONE ×4 (03:42→20:35)
[2016-09-16] MEDS: POTASSIUM CHLORIDE 20 MEQ in AMINO ACIDS 4.25%/D5W 1,000 ML IVPB SCH (07:17)
[2016-09-16 07:40] LABS: BASOPHIL 0.8 % (0-2.0); EOSINOPHIL 1.8 % (0-4.5); MCH 27.6 pg (25.7-33.7); MCHC 32.6 g/dl (32.0-35.9); MEAN CELL VOLUME 84.7 fl (80-96); MEAN PLT VOLUME 8.9 fl (7.5-11.1); NEUTROPHILS 76.4 % (42.8-82.8); PLATELET COUNT 502 K/MM3 (134-434); RDW 16.8 % (11.9-15.9); WHITE BLOOD COUNT 6.8 K/mm3 (4.0-10.0)
[2016-09-16 08:04] LABS: CALCIUM 9.1 mg/dL (8.5-10.1)
[2016-09-16 08:07] LABS: CREATININE 0.3 mg/dL (0.7-1.3)
--- NOTE | 2016-09-16 08:12 | PN ---
Progress Note (short form) - Note Progress Note: Patient seen and examined. Nonverbal, appears to be resting comfortably. G tube feeds at 55 ml/hr. Last Vital Signs Temp Pulse Resp BP Pulse Ox 98.8 F 87 20 103/67 99 09/16/16 06:52 09/16/16 06:52 09/16/16 06:52 09/16/16 06:52 09/15/16 21:00 CBC, BMP 09/16/16 06:00 BMP pending PE: Gen: NAD, resting comfortably, nonverbal at baseline Abd: Soft, nondistended, ileostomy viable, pink, protruding, with small amount brown liquid drainage and gas in ostomy bag, midline incision clean, dry, with eli intact, without erythema, G tube in place Problem List - Problems (1) Sigmoid volvulus Assessment/Plan: POD#3 s/p exploratory laparotomy, subtotal colectomy, creation end ileostomy Continue tube feeds Monitor for continued ostomy output F/u 09/16 BMP Staple removal 10-14 days postop Code(s): K56.2 - VOLVULUS (2) Colon distention Code(s): K63.89 - OTHER SPECIFIED DISEASES OF INTESTINE (3) Pseudo-obstruction of intestine Code(s): K59.8 - OTHER SPECIFIED FUNCTIONAL INTESTINAL DISORDERS
[2016-09-16] MEDS ORDERED: morphine SULFATE 10 MG/5 ML UNIT-DOSE CUP PO PRN (08:54)
[2016-09-16] MEDS: PHENobarbital 20 MG/5 ML UNIT-DOSE CUP GT SCH ×2 (10:41→23:06)
[2016-09-16] MEDS: PANTOPRAZOLE SOD 40 MG SUSPENSION PACKET GT SCH (10:41)
[2016-09-16] MEDS: FLUTICASONE PROP 0.05% 16 GM NASAL SPRAY NS SCH ×2 (10:42→23:06)
[2016-09-16] MEDS: SILVER SULFADIAZINE 1% TOP CREAM 50 GM JAR TP SCH (10:42)
[2016-09-16] MEDS: POLYETHYLENE GLYCOL 3350 119 GM BTL PEG SCH (10:42)
[2016-09-16] MEDS: levETIRAcetam 500 MG/5 ML ORAL SOLUTION (UNIT-DOSE CUPS) GT SCH ×2 (10:43→23:07)
--- NOTE | 2016-09-16 13:06 | PN ---
Progress Note, Physician History of Present Illness: patient stable no new issues - Current Medication List Current Medications: Active Medications Fluticasone Propionate (Flonase -) 1 spray NS BID [facility] Last Admin: 09/16/16 10:42 Dose: 1 spray Levetiracetam (Keppra Oral Solution -) 500 mg GT BID [facility] Last Admin: 09/16/16 10:43 Dose: 500 mg Morphine Sulfate (Morphine 10 Mg/5 Ml Liquid) 2 mg PO Q4H PRN PRN Reason: PAIN Last Admin: 09/16/16 12:58 Dose: 2 mg Pantoprazole Sodium (Protonix Packets For Oral Suspension -) 40 mg GT DAILY [facility] Last Admin: 09/16/16 10:41 Dose: 40 mg Phenobarbital (Phenobarbital Liquid -) 40 mg GT DAILY [facility] Last Admin: 09/16/16 10:41 Dose: 40 mg Phenobarbital (Phenobarbital Liquid -) 60 mg GT HS [facility] Polyethylene Glycol (Miralax (For Daily Use) -) 17 gm PEG DAILY [facility] Last Admin: 09/16/16 10:42 Dose: 17 grams Silver Sulfadiazine (Silvadene -) 1 applic TP DAILY [facility] Last Admin: 09/16/16 10:42 Dose: 1 applic Simethicone (Mylicon Liquid -) 80 mg GT Q6HPO [facility] Last Admin: 09/16/16 12:58 Dose: 80 mg - Objective Vital Signs: Vital Signs Temperature 98.8 F 09/16/16 06:52 Pulse Rate 87 09/16/16 06:52 Respiratory Rate 20 09/16/16 06:52 Blood Pressure 103/67 09/16/16 06:52 O2 Sat by Pulse Oximetry (%) 99 09/15/16 21:00 Constitutional: Yes: No Distress, Calm Cardiovascular: Yes: Regular Rate and Rhythm Respiratory: Yes: Regular, Poor Air Entry Gastrointestinal: Yes: Normal Bowel Sounds, Soft, Other (peg tube in place) Musculoskeletal: Yes: Other Extremities: Yes: Other Neurological: Yes: Alert, Other Labs: CBC, BMP 09/16/16 06:00 09/16/16 06:00 INR, PTT INR 1.28 (0.82-1.09) H 09/15/16 06:00 Fibrinogen 350.0 mg/dL (238-498) 09/13/16 19:20 Assessment/Plan 21yM with PMH 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 He is being admitted for sepsis. Sepsis secondary to pneumonia vs acute abdominal pathology Abdominal distention/volvulus anemia PU stage 2 sacrum seizure disorder functional quadriplegia plan patient off of abx stable continue current mgmt
--- NOTE | 2016-09-16 15:49 | PN ---
GI Progress Note Subjective: GI NOte: Colostomy functioning. Tolerating feedings. No distension or vomiting. - Objective Vital Signs: Vital Signs Temperature 98.4 F 09/16/16 13:56 Pulse Rate 100 H 09/16/16 13:56 Respiratory Rate 16 09/16/16 13:56 Blood Pressure 104/60 09/16/16 13:56 O2 Sat by Pulse Oximetry (%) 99 09/15/16 21:00 CBC, BMP 09/16/16 06:00 09/16/16 06:00 Constitutional: No Distress Gastrointestinal Inspection: Yes: Other (colostomy functional, incisions healing ) ...Auscultate: Yes: Normoactive Bowel Sounds Labs: CBC, BMP 09/16/16 06:00 09/16/16 06:00 INR, PTT INR 1.28 (0.82-1.09) H 09/15/16 06:00 Fibrinogen 350.0 mg/dL (238-498) 09/13/16 19:20 Assessment/Plan s/p subtotal colectomy to relieve recurring bowel obstruction due to volvulus and megacolon. Should now be able to get feedings without interruptions. Postop care as per the surgical team. Please recall us as needed. Problem List - Problems (1) Sigmoid volvulus Code(s): K56.2 - VOLVULUS (2) Stercoral ulcer of rectum Code(s): K62.6 - ULCER OF ANUS AND RECTUM (3) Gastric hourglass stricture or stenosis Code(s): K31.2 - HOURGLASS STRICTURE AND STENOSIS OF STOMACH (4) Sigmoid polyp Code(s): D12.5 - BENIGN NEOPLASM OF SIGMOID COLON (5) H/O Mackenzie-Guillen syndrome Code(s): Z87.19 - PERSONAL HISTORY OF OTHER DISEASES OF THE DIGESTIVE SYSTEM
[2016-09-16] MEDS ORDERED: ACETAMINOPHEN 650 MG/20.3 ML ORAL SOLUTION (CUPS) GT PRN (15:53)
[2016-09-16] MEDS ORDERED: morphine SULFATE 10 MG/5 ML UNIT-DOSE CUP GT PRN (15:55)
--- NOTE | 2016-09-16 15:55 | PN ---
Physical Exam: SUBJECTIVE: Patient seen and examined Patient non verbal-does not appear to be in distress One episode of emesis this morning. Tolerating feeds at 55cc/hr with no residuals reported POD#3 s/p exploratory laparotomy, subtotal colectomy, creation end ileostomy without complication OBJECTIVE: Vital Signs Period Temp Pulse Resp BP Sys/Begum Pulse Ox Last 24 Hr 97 F-98.8 F 87-100 16-20 93-104/60-68 99-99 GENERAL: The patient is awake, alert, non verbal, in no acute distress. HEAD: Normal with no signs of trauma. EYES: PERRL, extraocular movements intact, sclera anicteric, conjunctiva clear. ENT: Ears normal, nares patent, oropharynx clear, moist mucous membranes. NECK: Trachea midline, supple. LUNGS: Breath sounds diminished air entry bilaterally, no wheezes, no crackles, no accessory muscle use. HEART: Regular rate and rhythm, S1, S2 without murmur ABDOMEN: Soft, tenderness at surgical site, ileostomy with small amount brown drainage and gas in ostomy bag, midline incision C/D/I with eli intact, G tube intact, patent EXTREMITIES: 2+ pulses, warm, no edema. Contracted NEUROLOGICAL: Cranial nerves II through XII grossly intact. gait not observed. SKIN: Warm, dry Laboratory Results - last 24 hr 09/13/16 09/16/16 09/16/16 07:30 06:00 06:00 WBC 6.8 RBC 4.31 Hgb 11.9 D Hct 36.6 D MCV 84.7 MCHC 32.6 RDW 16.8 H Plt Count 502 H MPV 8.9 Neutrophils % 76.4 Lymphocytes % 12.4 D Monocytes % 8.6 D Eosinophils % 1.8 D Basophils % 0.8 D Sodium 136 Potassium 4.6 Chloride 105 Carbon Dioxide 27 Anion Gap 4 L BUN 14 D Creatinine 0.3 L Random Glucose 81 Calcium 9.1 Crossmatch IS Only See Detail Active Medications Generic Name Dose Route Start Last Admin Trade Name Freq PRN Reason Stop Dose Admin Acetaminophen 650 mg 09/16/16 15:53 Tylenol Oral Solution - GT Q6H PRN FEVER OR PAIN Fluticasone Propionate 1 spray 09/13/16 22:00 09/16/16 10:42 Flonase - NS 1 spray BID [facility] Administration Levetiracetam 500 mg 09/16/16 10:00 09/16/16 10:43 Keppra Oral Solution - GT 500 mg BID [facility] Administration Morphine Sulfate 2 mg 09/16/16 15:55 Morphine 10 Mg/5 Ml Liquid GT Q4H PRN PAIN Pantoprazole Sodium 40 mg 09/16/16 10:00 09/16/16 10:41 Protonix Packets For Oral Suspension - GT 40 mg DAILY [facility] Administration Phenobarbital 40 mg 09/16/16 10:00 09/16/16 10:41 Phenobarbital Liquid - GT 40 mg DAILY [facility] Administration Phenobarbital 60 mg 09/16/16 22:00 Phenobarbital Liquid - GT HS [facility] Polyethylene Glycol 17 gm 09/14/16 10:00 09/16/16 10:42 Miralax (For Daily Use) - PEG 17 grams DAILY [facility] Administration Silver Sulfadiazine 1 applic 09/14/16 10:00 09/16/16 10:42 Silvadene - TP 1 applic DAILY [facility] Administration Simethicone 80 mg 09/13/16 18:00 09/16/16 12:58 Mylicon Liquid - GT 80 mg Q6HPO [facility] Administration ASSESSMENT/PLAN: 21 y/o male with PMHx of 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 He was admitted for sepsis. 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 1 Sepsis secondary to pneumonia: -ID on case, completed abx therapy. -afebrile and labs within acceptable limits. Will monitor off abx. 2 sigmoid volvulus: -S/P Ex-lap subtotal colectomy and creation of end ileostomy on 09/13 POD#3 with out complication -tolerating tube feeds -GI on case-may dc eli at home in 10-14 days and has signed off on case. 3 Mild coagulopathy: - received FFP pre and post surgery, INR trending down -recheck INR tomorrow 4 Anemia: HH now stable -repeat CBC and CMP 09/17 5 PU stage 2 sacrum: - Continue with local treatment and T+P 6 Seizure disorder:Stable - Cont home keppra dose. will check keppra level 09/17 - Cont phenobarbital as ordered 7 Total care 2/2 quadriplegia: - Keep HOB elevated at all times, aspiration risk - cont to provide supportive care 8 DVT PPX: - held due to coagulation disorder -SCDs 9 FEN: - Feeds and water via feeding tube - Repeat BMP in am - cont tube feeding Dispo: May start to plan for dc back to adult home Problem List - Problems (1) Anemia Code(s): D64.9 - ANEMIA, UNSPECIFIED Qualifiers: Anemia type: other cause Other causes of anemia: other cause, not classified Qualified Code(s): D64.89 - Other specified anemias (2) Down's syndrome Code(s): Q90.9 - DOWN SYNDROME, UNSPECIFIED (3) Gastrojejunostomy tube status Code(s): Z98.0 - INTESTINAL BYPASS AND ANASTOMOSIS STATUS (4) Seizure Code(s): R56.9 - UNSPECIFIED CONVULSIONS Visit type - Emergency Visit Emergency Visit: No - New Patient This patient is new to me today: Yes Date on this admission: 09/19/16 - Critical Care Critical Care patient: No
[2016-09-17] MEDS: SIMETHICONE 40 MG/0.6 ML BOTTLE GT SCH ×4 (06:55→17:17)
[2016-09-17 08:20] LABS: BASOPHIL 0.6 % (0-2.0); EOSINOPHIL 2.2 % (0-4.5); MCHC 32.6 g/dl (32.0-35.9); MEAN CELL VOLUME 85.9 fl (80-96); MEAN PLT VOLUME 9.2 fl (7.5-11.1); NEUTROPHILS 81.2 % (42.8-82.8); PLATELET COUNT 467 K/MM3 (134-434); RDW 17.2 % (11.9-15.9); WHITE BLOOD COUNT 7.5 K/mm3 (4.0-10.0)
[2016-09-17 08:36] LABS: ALBUMIN 3.2 g/dl (3.4-5.0); ANION GAP 13 (8-16); CALCIUM 8.8 mg/dL (8.5-10.1); CO2 23 mmol/L (21-32); CREATININE 0.3 mg/dL (0.7-1.3); GLUCOSE,RANDOM 94 mg/dL (74-106); SGOT/AST 18 U/L (15-37); SGPT/ALT 18 U/L (12-78)
[2016-09-17 08:40] LABS: ALK PHOS 88 U/L (45-117); BILIRUBIN,TOTAL 0.3 mg/dL (0.2-1.0); TOT PROT 7.2 g/dl (6.4-8.2)
[2016-09-17 08:48] LABS: INR 1.16 (0.82-1.09); PROTHROMBIN TIME (PATIENT) 12.8 SEC (9.98-11.88)
[2016-09-17] MEDS: PHENobarbital 20 MG/5 ML UNIT-DOSE CUP GT SCH ×2 (10:41→22:00)
[2016-09-17] MEDS: levETIRAcetam 500 MG/5 ML ORAL SOLUTION (UNIT-DOSE CUPS) GT SCH ×2 (10:41→22:00)
[2016-09-17] MEDS: POLYETHYLENE GLYCOL 3350 119 GM BTL PEG SCH (10:42)
[2016-09-17] MEDS: SILVER SULFADIAZINE 1% TOP CREAM 50 GM JAR TP SCH (10:43)
[2016-09-17] MEDS: PANTOPRAZOLE SOD 40 MG SUSPENSION PACKET GT SCH (10:43)
[2016-09-17] MEDS: FLUTICASONE PROP 0.05% 16 GM NASAL SPRAY NS SCH ×2 (10:46→22:00)
--- NOTE | 2016-09-17 13:56 | PN ---
Progress Note, Physician History of Present Illness: patient stable no new issues peg in place - Current Medication List Current Medications: Active Medications Acetaminophen (Tylenol Oral Solution -) 650 mg GT Q6H PRN PRN Reason: FEVER OR PAIN Fluticasone Propionate (Flonase -) 1 spray NS BID [facility] Last Admin: 09/17/16 10:46 Dose: 1 spray Levetiracetam (Keppra Oral Solution -) 500 mg GT BID [facility] Last Admin: 09/17/16 10:41 Dose: 500 mg Morphine Sulfate (Morphine 10 Mg/5 Ml Liquid) 2 mg GT Q4H PRN PRN Reason: PAIN Pantoprazole Sodium (Protonix Packets For Oral Suspension -) 40 mg GT DAILY [facility] Last Admin: 09/17/16 10:43 Dose: 40 mg Phenobarbital (Phenobarbital Liquid -) 40 mg GT DAILY [facility] Last Admin: 09/17/16 10:41 Dose: 40 mg Phenobarbital (Phenobarbital Liquid -) 60 mg GT HS [facility] Last Admin: 09/16/16 23:06 Dose: 60 mg Polyethylene Glycol (Miralax (For Daily Use) -) 17 gm PEG DAILY [facility] Last Admin: 09/17/16 10:42 Dose: 17 grams Silver Sulfadiazine (Silvadene -) 1 applic TP DAILY [facility] Last Admin: 09/17/16 10:43 Dose: 1 applic Simethicone (Mylicon Liquid -) 80 mg GT Q6HPO [facility] Last Admin: 09/17/16 12:22 Dose: 80 mg - Objective Vital Signs: Vital Signs Temperature 98.2 F 09/17/16 10:00 Pulse Rate 97 H 09/17/16 10:00 Respiratory Rate 18 09/17/16 13:52 Blood Pressure 111/65 09/17/16 10:00 O2 Sat by Pulse Oximetry (%) 98 09/17/16 13:52 Constitutional: Yes: No Distress, Calm Cardiovascular: Yes: Regular Rate and Rhythm Respiratory: Yes: Regular, CTA Bilaterally Gastrointestinal: Yes: Normal Bowel Sounds, Soft, Other (peg in place) Musculoskeletal: Yes: Other Extremities: Yes: Other Neurological: Yes: Alert, Other Labs: CBC, BMP 09/17/16 06:30 09/17/16 06:30 INR, PTT INR 1.16 (0.82-1.09) H 09/17/16 06:30 Fibrinogen 350.0 mg/dL (238-498) 09/13/16 19:20 Assessment/Plan 21yM with PMH 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 He is being admitted for sepsis. Sepsis secondary to pneumonia vs acute abdominal pathology Abdominal distention/volvulus anemia PU stage 2 sacrum seizure disorder functional quadriplegia plan patient off of abx stable continue current mgmt no new events
[2016-09-17] MEDS ORDERED: morphine SULFATE 10 MG/5 ML UNIT-DOSE CUP GT STA (14:06)
--- NOTE | 2016-09-17 14:06 | PN ---
Physical Exam: SUBJECTIVE: Patient seen and examined at bedside. Nonverbal at baseline. OBJECTIVE: Vital Signs Period Temp Pulse Resp BP Sys/Begum Pulse Ox Last 24 Hr 98 F-98.6 F 94-115 16-18 94-111/65-73 98-98 NEURO: Awake; non-verbal; appears mildly agitated possibly in pain. +guarding on abdominal exam. HEAD: Normal with no signs of trauma. EYES: PERRL, extraocular movements intact, sclera anicteric, conjunctiva clear. No ptosis. ENT: Ears normal, nares patent, oropharynx clear without exudates, moist mucous membranes. NECK: Trachea midline, full range of motion, supple. LUNGS: Breath sounds equal, clear to auscultation bilaterally, no wheezes, no crackles, no accessory muscle use. HEART: Regular rate and rhythm, S1, S2 without murmur, rub or gallop. ABDOMEN: Surgical lei c/d/i, +healing ridge, no erythema, no exudate. + guarding rebound, no hepatosplenomegaly, no masses. EXTREMITIES: both legs contracted. Laboratory Results - last 24 hr 09/13/16 09/17/16 09/17/16 07:30 06:30 06:30 WBC 7.5 RBC 4.02 Hgb 11.3 L Hct 34.5 L MCV 85.9 MCHC 32.6 RDW 17.2 H Plt Count 467 H MPV 9.2 Neutrophils % 81.2 Lymphocytes % 8.8 D Monocytes % 7.2 Eosinophils % 2.2 Basophils % 0.6 INR Sodium 141 Potassium 4.6 Chloride 105 Carbon Dioxide 23 Anion Gap 13 BUN 24 H D Creatinine 0.3 L Creat Clearance w eGFR > 60 Random Glucose 94 Calcium 8.8 Total Bilirubin 0.3 D AST 18 ALT 18 Alkaline Phosphatase 88 Total Protein 7.2 Albumin 3.2 L Blood Type O POSITIVE Antibody Screen Negative Crossmatch IS Only See Detail 09/17/16 06:30 WBC RBC Hgb Hct MCV MCHC RDW Plt Count MPV Neutrophils % Lymphocytes % Monocytes % Eosinophils % Basophils % INR 1.16 H Sodium Potassium Chloride Carbon Dioxide Anion Gap BUN Creatinine Creat Clearance w eGFR Random Glucose Calcium Total Bilirubin AST ALT Alkaline Phosphatase Total Protein Albumin Blood Type Antibody Screen Crossmatch IS Only Active Medications Generic Name Dose Route Start Last Admin Trade Name Freq PRN Reason Stop Dose Admin Acetaminophen 650 mg 09/16/16 15:53 Tylenol Oral Solution - GT Q6H PRN FEVER OR PAIN Fluticasone Propionate 1 spray 09/13/16 22:00 09/17/16 10:46 Flonase - NS 1 spray BID TRUDY Administration Levetiracetam 500 mg 09/16/16 10:00 09/17/16 10:41 Keppra Oral Solution - GT 500 mg BID TRUDY Administration Morphine Sulfate 2 mg 09/16/16 15:55 Morphine 10 Mg/5 Ml Liquid GT Q4H PRN PAIN Pantoprazole Sodium 40 mg 09/16/16 10:00 09/17/16 10:43 Protonix Packets For Oral Suspension - GT 40 mg DAILY TRUDY Administration Phenobarbital 40 mg 09/16/16 10:00 09/17/16 10:41 Phenobarbital Liquid - GT 40 mg DAILY TRUDY Administration Phenobarbital 60 mg 09/16/16 22:00 09/16/16 23:06 Phenobarbital Liquid - GT 60 mg HS TRUDY Administration Polyethylene Glycol 17 gm 09/14/16 10:00 09/17/16 10:42 Miralax (For Daily Use) - PEG 17 grams DAILY TRUDY Administration Silver Sulfadiazine 1 applic 09/14/16 10:00 09/17/16 10:43 Silvadene - TP 1 applic DAILY TRUDY Administration Simethicone 80 mg 09/13/16 18:00 09/17/16 12:22 Mylicon Liquid - GT 80 mg Q6HPO TRUDY Administration ASSESSMENT/PLAN 21 year-old male, resident of [facility], with a PMH of Down syndrome with severe MR, autism, pyloric stricture, seizure disorder, and recurrent volvulus. 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 Sepsis secondary to pneumonia, resolved --Aztreonam completed on 09/14 --Flagyl completed 09/15 --continue to monitor off antibiotics --ID following Sigmoid volvulus --s/p ex-lap subtotal colectomy and creation of end ileostomy on 09/13 --appears to be in pain, +guarding; morphine PRN and Tylenol scheduled --is tolerating tube feeds and producing stool; d/c eli as outpatient 10- 14 days after surgery Mild coagulopathy - coagulation studies repeat, abnormal results - received FFP pre and post surgery - heme following Pressure ulcer Stage 2 sacrum --continue with local treatment, turn and position Seizure disorder --stable --continue Keppra, phenobarbital --Keppra level pending Functional quadriplegia --total care F/E/N Fluids/Nutrition: Tube feeds and free wawter Electrolytes: replete as indicated DVT prophylaxis: no chemical prophylaxis due to coagulopathy; SCDs Dispo: May start to plan for discharge to appropriate facility. Case management to determine if he can return to [facility]. Full Code. Visit type - Emergency Visit Emergency Visit: Yes ED Registration Date: 09/06/16 Care time: The patient presented to the Emergency Department on the above date and was hospitalized for further evaluation of their emergent condition. - New Patient This patient is new to me today: Yes Date on this admission: 09/19/16 - Critical Care Critical Care patient: No
[2016-09-17] MEDS: ACETAMINOPHEN 650 MG/20.3 ML ORAL SOLUTION (CUPS) GT SCH (17:14)
[2016-09-17] MEDS ORDERED: PT OWN MED DRAWER 7, Y5N ONE (21:52)
[2016-09-17 21:56] LABS: BASOPHIL 0.9 % (0-2.0); EOSINOPHIL 2.9 % (0-4.5); MCH 27.1 pg (25.7-33.7); MEAN CELL VOLUME 84.9 fl (80-96); MEAN PLT VOLUME 9.4 fl (7.5-11.1); NEUTROPHILS 74.9 % (42.8-82.8); PLATELET COUNT 443 K/MM3 (134-434); RDW 18.1 % (11.9-15.9); WHITE BLOOD COUNT 7.1 K/mm3 (4.0-10.0)
[2016-09-17 22:20] LABS: ALBUMIN 3.5 g/dl (3.4-5.0); ALK PHOS 90 U/L (45-117); ANION GAP 5 (8-16); BILIRUBIN,TOTAL 0.3 mg/dL (0.2-1.0); CALCIUM 9.2 mg/dL (8.5-10.1); CO2 28 mmol/L (21-32); CREATININE 0.3 mg/dL (0.7-1.3); GLUCOSE,RANDOM 81 mg/dL (74-106); MAGNESIUM 2.2 mg/dL (1.8-2.4); SGOT/AST 22 U/L (15-37); SGPT/ALT 21 U/L (12-78); TOT PROT 7.8 g/dl (6.4-8.2)
[2016-09-18] MEDS: SIMETHICONE 40 MG/0.6 ML BOTTLE GT SCH ×4 (00:13→17:59)
[2016-09-18] MEDS: ACETAMINOPHEN 650 MG/20.3 ML ORAL SOLUTION (CUPS) GT SCH ×4 (00:13→18:00)
[2016-09-18] MEDS ORDERED: PT OWN MED DRAWER 7, Y5N ONE ×4 (00:23→18:19)
[2016-09-18] MEDS: PANTOPRAZOLE SOD 40 MG SUSPENSION PACKET GT SCH (10:19)
[2016-09-18] MEDS: PHENobarbital 20 MG/5 ML UNIT-DOSE CUP GT SCH ×2 (10:19→21:52)
[2016-09-18] MEDS: POLYETHYLENE GLYCOL 3350 119 GM BTL PEG SCH (10:20)
[2016-09-18] MEDS: FLUTICASONE PROP 0.05% 16 GM NASAL SPRAY NS SCH ×2 (10:20→21:52)
[2016-09-18] MEDS: levETIRAcetam 500 MG/5 ML ORAL SOLUTION (UNIT-DOSE CUPS) GT SCH ×2 (10:22→22:08)
[2016-09-18] MEDS: SILVER SULFADIAZINE 1% TOP CREAM 50 GM JAR TP SCH (10:23)
--- NOTE | 2016-09-18 13:30 | PN ---
Progress Note, Physician History of Present Illness: patient stable no events - Current Medication List Current Medications: Active Medications Acetaminophen (Tylenol Oral Solution -) 650 mg GT Q6H [facility] Last Admin: 09/18/16 06:13 Dose: 650 mg Fluticasone Propionate (Flonase -) 1 spray NS BID [facility] Last Admin: 09/18/16 10:20 Dose: 1 spray Levetiracetam (Keppra Oral Solution -) 500 mg GT BID [facility] Last Admin: 09/18/16 10:22 Dose: 500 mg Morphine Sulfate (Morphine 10 Mg/5 Ml Liquid) 2 mg GT Q4H PRN PRN Reason: PAIN Pantoprazole Sodium (Protonix Packets For Oral Suspension -) 40 mg GT DAILY [facility] Last Admin: 09/18/16 10:19 Dose: 40 mg Phenobarbital (Phenobarbital Liquid -) 40 mg GT DAILY [facility] Last Admin: 09/18/16 10:19 Dose: 40 mg Phenobarbital (Phenobarbital Liquid -) 60 mg GT HS [facility] Last Admin: 09/17/16 22:00 Dose: 60 mg Polyethylene Glycol (Miralax (For Daily Use) -) 17 gm PEG DAILY [facility] Last Admin: 09/18/16 10:20 Dose: 17 grams Silver Sulfadiazine (Silvadene -) 1 applic TP DAILY [facility] Last Admin: 09/18/16 10:23 Dose: 1 applic Simethicone (Mylicon Liquid -) 80 mg GT Q6HPO [facility] Last Admin: 09/18/16 06:14 Dose: 80 mg - Objective Vital Signs: Vital Signs Temperature 100.9 F H 09/18/16 09:00 Pulse Rate 97 H 09/18/16 09:00 Respiratory Rate 16 09/18/16 09:00 Blood Pressure 103/65 09/18/16 09:00 O2 Sat by Pulse Oximetry (%) 97 09/18/16 09:00 Constitutional: Yes: No Distress, Calm Cardiovascular: Yes: Regular Rate and Rhythm Respiratory: Yes: Regular, CTA Bilaterally Gastrointestinal: Yes: Normal Bowel Sounds, Soft, Other (feeding tube) Musculoskeletal: Yes: Other Extremities: Yes: Other Neurological: Yes: Alert, Other Psychiatric: Yes: Alert Labs: CBC, BMP 09/17/16 21:20 09/17/16 21:20 INR, PTT INR 1.16 (0.82-1.09) H 09/17/16 06:30 Fibrinogen 350.0 mg/dL (238-498) 09/13/16 19:20 Assessment/Plan 21yM with PMH 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 He is being admitted for sepsis. Sepsis secondary to pneumonia vs acute abdominal pathology Abdominal distention/volvulus anemia PU stage 2 sacrum seizure disorder functional quadriplegia plan patient off of abx stable continue current mgmt no new events
--- NOTE | 2016-09-18 20:26 | PN ---
Physical Exam: SUBJECTIVE: Patient seen and examined. OBJECTIVE: Vital Signs Period Temp Pulse Resp BP Sys/Begum Pulse Ox Last 24 Hr 97.6 F-97.9 F 88-98 16-18 103-140/65-78 7-97 NEURO: Awake; non-verbal. Calmer, no agitation. Allows physical exam. HEAD: Normal with no signs of trauma. EYES: PERRL, extraocular movements intact, sclera anicteric, conjunctiva clear. No ptosis. ENT: Ears normal, nares patent, oropharynx clear without exudates, moist mucous membranes. NECK: Trachea midline, full range of motion, supple. LUNGS: Breath sounds equal, clear to auscultation bilaterally, no wheezes, no crackles, no accessory muscle use. HEART: Regular rate and rhythm, S1, S2 without murmur, rub or gallop. ABDOMEN: Surgical eli c/d/i, +healing ridge, no erythema, no exudate. + guarding rebound, no hepatosplenomegaly, no masses. EXTREMITIES: both legs contracted. Laboratory Results - last 24 hr 09/17/16 09/17/16 21:20 21:20 WBC 7.1 RBC 4.34 Hgb 11.8 Hct 36.9 MCV 84.9 MCHC 32.0 RDW 18.1 H Plt Count 443 H MPV 9.4 Neutrophils % 74.9 Lymphocytes % 12.8 D Monocytes % 8.5 Eosinophils % 2.9 Basophils % 0.9 Sodium 138 Potassium 4.9 Chloride 105 Carbon Dioxide 28 D Anion Gap 5 L BUN 22 H Creatinine 0.3 L Creat Clearance w eGFR > 60 Random Glucose 81 Calcium 9.2 Phosphorus 4.0 D Magnesium 2.2 Total Bilirubin 0.3 AST 22 D ALT 21 Alkaline Phosphatase 90 Total Protein 7.8 Albumin 3.5 Active Medications Generic Name Dose Route Start Last Admin Trade Name Freq PRN Reason Stop Dose Admin Acetaminophen 650 mg 09/17/16 18:00 09/18/16 18:00 Tylenol Oral Solution - GT 650 mg Q6H TRUDY Administration Fluticasone Propionate 1 spray 09/13/16 22:00 09/18/16 10:20 Flonase - NS 1 spray BID TRUDY Administration Levetiracetam 500 mg 09/16/16 10:00 09/18/16 10:22 Keppra Oral Solution - GT 500 mg BID TRUDY Administration Morphine Sulfate 2 mg 09/16/16 15:55 Morphine 10 Mg/5 Ml Liquid GT Q4H PRN PAIN Pantoprazole Sodium 40 mg 09/16/16 10:00 09/18/16 10:19 Protonix Packets For Oral Suspension - GT 40 mg DAILY TRUDY Administration Phenobarbital 40 mg 09/16/16 10:00 09/18/16 10:19 Phenobarbital Liquid - GT 40 mg DAILY TRUDY Administration Phenobarbital 60 mg 09/16/16 22:00 09/17/16 22:00 Phenobarbital Liquid - GT 60 mg HS TRUDY Administration Polyethylene Glycol 17 gm 09/14/16 10:00 09/18/16 10:20 Miralax (For Daily Use) - PEG 17 grams DAILY TRUDY Administration Silver Sulfadiazine 1 applic 09/14/16 10:00 09/18/16 10:23 Silvadene - TP 1 applic DAILY TRUDY Administration Simethicone 80 mg 09/13/16 18:00 09/18/16 17:59 Mylicon Liquid - GT 80 mg Q6HPO TRUDY Administration ASSESSMENT/PLAN 21 year-old male, resident of [facility], with a PMH of Down syndrome with severe MR, autism, pyloric stricture, seizure disorder, and recurrent volvulus. 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 Sepsis secondary to pneumonia, resolved --Aztreonam completed on 09/14 --Flagyl completed 09/15 --continue to monitor off antibiotics --ID following Sigmoid volvulus --s/p ex-lap subtotal colectomy and creation of end ileostomy on 09/13 --pain seems to have improved, calmer, allows for exam --is tolerating tube feeds and producing stool; d/c eli as outpatient 10- 14 days after surgery Mild coagulopathy - coagulation studies repeat, abnormal results - received FFP pre and post surgery - heme following Pressure ulcer Stage 2 sacrum --continue with local treatment, turn and position Seizure disorder --stable --continue Keppra, phenobarbital --Keppra level pending Functional quadriplegia --total care F/E/N Fluids/Nutrition: Tube feeds and free wawter Electrolytes: replete as indicated DVT prophylaxis: no chemical prophylaxis due to coagulopathy; SCDs Dispo: Ready for discharge. Case management to determine if he can return to [facility]. Full Code. Visit type - Emergency Visit Emergency Visit: Yes ED Registration Date: 09/06/16 Care time: The patient presented to the Emergency Department on the above date and was hospitalized for further evaluation of their emergent condition. - New Patient This patient is new to me today: No - Critical Care Critical Care patient: No
[2016-09-19] MEDS: SIMETHICONE 40 MG/0.6 ML BOTTLE GT SCH ×4 (00:10→17:00)
[2016-09-19] MEDS: ACETAMINOPHEN 650 MG/20.3 ML ORAL SOLUTION (CUPS) GT SCH ×4 (00:16→17:00)
[2016-09-19] MEDS ORDERED: PT OWN MED DRAWER 7, Y5N ONE (09:31)
[2016-09-19] MEDS: FLUTICASONE PROP 0.05% 16 GM NASAL SPRAY NS SCH ×2 (09:33→22:08)
[2016-09-19] MEDS: levETIRAcetam 500 MG/5 ML ORAL SOLUTION (UNIT-DOSE CUPS) GT SCH ×2 (09:34→22:07)
[2016-09-19] MEDS: PHENobarbital 20 MG/5 ML UNIT-DOSE CUP GT SCH ×2 (09:34→22:07)
[2016-09-19] MEDS: PANTOPRAZOLE SOD 40 MG SUSPENSION PACKET GT SCH (09:35)
[2016-09-19] MEDS: SILVER SULFADIAZINE 1% TOP CREAM 50 GM JAR TP SCH (09:36)
[2016-09-19] MEDS: POLYETHYLENE GLYCOL 3350 119 GM BTL PEG SCH (09:41)
--- NOTE | 2016-09-19 10:16 | PN ---
Physical Exam: SUBJECTIVE: Patient seen and examined. OBJECTIVE: Vital Signs Period Temp Pulse Resp BP Sys/Begum Pulse Ox Last 24 Hr 98.8 F-979 F 77-98 16-18 101-112/56-74 97 NEURO: Awake; non-verbal. Calm. No agitation. Allows physical exam. HEAD: Normal with no signs of trauma. EYES: PERRL, extraocular movements intact, sclera anicteric, conjunctiva clear. No ptosis. ENT: Ears normal, nares patent, oropharynx clear without exudates, moist mucous membranes. NECK: Trachea midline, full range of motion, supple. LUNGS: Breath sounds equal, clear to auscultation bilaterally, no wheezes, no crackles, no accessory muscle use. HEART: Regular rate and rhythm, S1, S2 without murmur, rub or gallop. ABDOMEN: Surgical eli c/d/i, +healing ridge, no erythema, no exudate. Ileostomy tube in situ, surrounding skin dry, flaky, no sign of infection rebound, no hepatosplenomegaly, no masses. EXTREMITIES: both legs contracted. Laboratory Results - last 24 hr 09/17/16 06:30 Levetiracetam 10.5 Active Medications Generic Name Dose Route Start Last Admin Trade Name Freq PRN Reason Stop Dose Admin Acetaminophen 650 mg 09/17/16 18:00 09/19/16 05:31 Tylenol Oral Solution - GT 650 mg Q6H TRUDY Administration Fluticasone Propionate 1 spray 09/13/16 22:00 09/19/16 09:33 Flonase - NS 1 spray BID TRUDY Administration Levetiracetam 500 mg 09/16/16 10:09/19/16 09:34 Keppra Oral Solution - GT 500 mg BID TRUDY Administration Morphine Sulfate 2 mg 09/16/16 15:55 Morphine 10 Mg/5 Ml Liquid GT Q4H PRN PAIN Pantoprazole Sodium 40 mg 09/16/16 10:09/19/16 09:35 Protonix Packets For Oral Suspension - GT 40 mg DAILY TRUDY Administration Phenobarbital 40 mg 09/16/16 10:09/19/16 09:34 Phenobarbital Liquid - GT 40 mg DAILY TRUDY Administration Phenobarbital 60 mg 09/16/16 22:00 09/18/16 21:52 Phenobarbital Liquid - GT 60 mg HS TRUDY Administration Polyethylene Glycol 17 gm 09/14/16 10:00 09/19/16 09:41 Miralax (For Daily Use) - PEG 17 grams DAILY TRUDY Administration Silver Sulfadiazine 1 applic 09/14/16 10:00 09/19/16 09:36 Silvadene - TP 1 applic DAILY TRUDY Administration Simethicone 80 mg 09/13/16 18:00 09/19/16 05:31 Mylicon Liquid - GT 80 mg Q6HPO TRUDY Administration ASSESSMENT/PLAN: 21 year-old male, resident of [facility], with a PMH of Down syndrome with severe MR, autism, pyloric stricture, seizure disorder, and recurrent volvulus. 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 Sepsis secondary to pneumonia, resolved --Aztreonam completed on 09/14 --Flagyl completed 09/15 --continue to monitor off antibiotics --ID following Sigmoid volvulus --s/p ex-lap subtotal colectomy and creation of end ileostomy on 09/13 --is tolerating tube feeds and producing stool; d/c eli as outpatient 10- 14 days after surgery Mild coagulopathy - coagulation studies repeat, abnormal results - received FFP pre and post surgery - heme following Pressure ulcer Stage 2 sacrum --continue with local treatment, turn and position Seizure disorder --stable --Keppra level therapeutic --continue Keppra, phenobarbital Functional quadriplegia --total care F/E/N Fluids/Nutrition: Tube feeds and free water Electrolytes: replete as indicated DVT prophylaxis: no chemical prophylaxis due to coagulopathy; SCDs Dispo: Ready for discharge. Case management to determine if he can return to [facility]. Full Code. Visit type - Emergency Visit Emergency Visit: Yes ED Registration Date: 09/06/16 Care time: The patient presented to the Emergency Department on the above date and was hospitalized for further evaluation of their emergent condition. - New Patient This patient is new to me today: No - Critical Care Critical Care patient: No
[2016-09-19 11:29] LABS: BASOPHIL 1.2 % (0-2.0); EOSINOPHIL 5.1 % (0-4.5); MCHC 32.7 g/dl (32.0-35.9); MEAN CELL VOLUME 85.7 fl (80-96); MEAN PLT VOLUME 8.8 fl (7.5-11.1); NEUTROPHILS 64.2 % (42.8-82.8); PLATELET COUNT 376 K/MM3 (134-434)
[2016-09-19 11:53] LABS: ALBUMIN 3.5 g/dl (3.4-5.0); ALK PHOS 95 U/L (45-117); ANION GAP 9 (8-16); BILIRUBIN,TOTAL 0.3 mg/dL (0.2-1.0); CALCIUM 8.8 mg/dL (8.5-10.1); CO2 26 mmol/L (21-32); CREATININE 0.3 mg/dL (0.7-1.3); GLUCOSE,RANDOM 89 mg/dL (74-106); MAGNESIUM 2.1 mg/dL (1.8-2.4); SGOT/AST 16 U/L (15-37); SGPT/ALT 19 U/L (12-78); TOT PROT 7.6 g/dl (6.4-8.2)
[2016-09-19] MEDS: MUPIROCIN 2% TOPICAL OINTMENT 22 GM TUBE TP SCH ×2 (14:59→22:08)
[2016-09-20] MEDS: ACETAMINOPHEN 650 MG/20.3 ML ORAL SOLUTION (CUPS) GT SCH ×4 (06:10→18:02)
[2016-09-20] MEDS: SIMETHICONE 40 MG/0.6 ML BOTTLE GT SCH ×4 (06:11→18:01)
[2016-09-20] MEDS ORDERED: PT OWN MED DRAWER 7, Y5N ONE (07:53)
[2016-09-20] MEDS: PHENobarbital 20 MG/5 ML UNIT-DOSE CUP GT SCH ×3 (10:05→22:27)
[2016-09-20] MEDS: levETIRAcetam 500 MG/5 ML ORAL SOLUTION (UNIT-DOSE CUPS) GT SCH ×3 (10:05→22:27)
[2016-09-20] MEDS: PANTOPRAZOLE SOD 40 MG SUSPENSION PACKET GT SCH (10:05)
[2016-09-20] MEDS: FLUTICASONE PROP 0.05% 16 GM NASAL SPRAY NS SCH ×2 (10:05→22:27)
[2016-09-20] MEDS: POLYETHYLENE GLYCOL 3350 119 GM BTL PEG SCH (10:06)
[2016-09-20] MEDS: MUPIROCIN 2% TOPICAL OINTMENT 22 GM TUBE TP SCH ×2 (10:06→22:28)
[2016-09-20] MEDS: SILVER SULFADIAZINE 1% TOP CREAM 50 GM JAR TP SCH (10:06)
--- NOTE | 2016-09-20 11:08 | PROC ---
Procedure Note Procedure: Patient's J tube became dislodged and was asked by GI to place a bailey catheter to keep the ostomy open until J-tube can be replaced. Area on abdomen was prepped with sterile iodine. Using sterile gloves, a 14f bailey catheter was placed in the aperture and the balloon inflated. Tube feeds will be held until GI places a new tube. Patient tolerated the procedure well.
--- NOTE | 2016-09-20 11:18 | PN ---
Progress Note (short form) - Note Progress Note: Called that G-Tube fell out. Nurse had placed a 14fr. bailey catheter into the stoma. On exam, ileostomy noted in right abdomen with surgical eli in place at surgical incision. Bailey catheter removed from G-Tube stoma. A 16fr. [employer] balloon replacement G-Tube was place without difficulty. The balloon was filled with 6cc of air and the external bolster was noted to be at 2.5cm at the level of the abdominal wall. Gastrograffin G-Tube study was ordered
--- NOTE | 2016-09-20 12:47 | PN ---
Progress Note, Physician History of Present Illness: stable no issues tolerating tube feeds - Current Medication List Current Medications: Active Medications Acetaminophen (Tylenol Oral Solution -) 650 mg GT Q6H [facility] Last Admin: 09/20/16 08:21 Dose: Not Given Fluticasone Propionate (Flonase -) 1 spray NS BID [facility] Last Admin: 09/20/16 10:05 Dose: 1 spray Levetiracetam (Keppra Oral Solution -) 500 mg GT BID [facility] Last Admin: 09/20/16 10:05 Dose: Not Given Mupirocin (Bactroban 2% Ointment -) 1 applic TP BID [facility] Last Admin: 09/20/16 10:06 Dose: 1 applic Pantoprazole Sodium (Protonix Packets For Oral Suspension -) 40 mg GT DAILY [facility] Last Admin: 09/20/16 10:05 Dose: Not Given Phenobarbital (Phenobarbital Liquid -) 40 mg GT DAILY [facility] Last Admin: 09/20/16 10:05 Dose: Not Given Phenobarbital (Phenobarbital Liquid -) 60 mg GT HS [facility] Last Admin: 09/19/16 22:07 Dose: 60 mg Polyethylene Glycol (Miralax (For Daily Use) -) 17 gm PEG DAILY [facility] Last Admin: 09/20/16 10:06 Dose: Not Given Silver Sulfadiazine (Silvadene -) 1 applic TP DAILY [facility] Last Admin: 09/20/16 10:06 Dose: 1 applic Simethicone (Mylicon Liquid -) 80 mg GT Q6HPO [facility] Last Admin: 09/20/16 06:11 Dose: Not Given - Objective Vital Signs: Vital Signs Temperature 98.1 F 09/20/16 06:00 Pulse Rate 71 09/20/16 06:00 Respiratory Rate 18 09/20/16 06:00 Blood Pressure 95/57 09/20/16 06:00 O2 Sat by Pulse Oximetry (%) 96 09/19/16 21:00 Constitutional: Yes: No Distress, Calm Cardiovascular: Yes: Regular Rate and Rhythm Respiratory: Yes: Regular, CTA Bilaterally Gastrointestinal: Yes: Normal Bowel Sounds, Soft, Other (feeding tube in place) Musculoskeletal: Yes: Other Extremities: Yes: Other Neurological: Yes: Alert, Other Labs: CBC, BMP 09/19/16 11:15 09/19/16 11:15 INR, PTT INR 1.16 (0.82-1.09) H 09/17/16 06:30 Fibrinogen 350.0 mg/dL (238-498) 09/13/16 19:20 Assessment/Plan 21yM with PMH 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 He is being admitted for sepsis. Sepsis secondary to pneumonia vs acute abdominal pathology Abdominal distention/volvulus anemia PU stage 2 sacrum seizure disorder functional quadriplegia plan patient off of abx stable continue current mgmt no new events
--- NOTE | 2016-09-20 12:47 | PN ---
Progress Note, Physician History of Present Illness: patients feeding tube came out g tube was rereplaced - Current Medication List Current Medications: Active Medications Acetaminophen (Tylenol Oral Solution -) 650 mg GT Q6H [facility] Last Admin: 09/20/16 08:21 Dose: Not Given Fluticasone Propionate (Flonase -) 1 spray NS BID [facility] Last Admin: 09/20/16 10:05 Dose: 1 spray Levetiracetam (Keppra Oral Solution -) 500 mg GT BID [facility] Last Admin: 09/20/16 10:05 Dose: Not Given Mupirocin (Bactroban 2% Ointment -) 1 applic TP BID [facility] Last Admin: 09/20/16 10:06 Dose: 1 applic Pantoprazole Sodium (Protonix Packets For Oral Suspension -) 40 mg GT DAILY [facility] Last Admin: 09/20/16 10:05 Dose: Not Given Phenobarbital (Phenobarbital Liquid -) 40 mg GT DAILY [facility] Last Admin: 09/20/16 10:05 Dose: Not Given Phenobarbital (Phenobarbital Liquid -) 60 mg GT HS [facility] Last Admin: 09/19/16 22:07 Dose: 60 mg Polyethylene Glycol (Miralax (For Daily Use) -) 17 gm PEG DAILY [facility] Last Admin: 09/20/16 10:06 Dose: Not Given Silver Sulfadiazine (Silvadene -) 1 applic TP DAILY [facility] Last Admin: 09/20/16 10:06 Dose: 1 applic Simethicone (Mylicon Liquid -) 80 mg GT Q6HPO [facility] Last Admin: 09/20/16 06:11 Dose: Not Given - Objective Vital Signs: Vital Signs Temperature 98.1 F 09/20/16 06:00 Pulse Rate 71 09/20/16 06:00 Respiratory Rate 18 09/20/16 06:00 Blood Pressure 95/57 09/20/16 06:00 O2 Sat by Pulse Oximetry (%) 96 09/19/16 21:00 Constitutional: Yes: No Distress, Calm Cardiovascular: Yes: Regular Rate and Rhythm Respiratory: Yes: Regular Gastrointestinal: Yes: Normal Bowel Sounds, Soft Musculoskeletal: Yes: Other Extremities: Yes: Other Neurological: Yes: Alert, Other Psychiatric: Yes: Alert Labs: CBC, BMP 09/19/16 11:15 09/19/16 11:15 INR, PTT INR 1.16 (0.82-1.09) H 09/17/16 06:30 Fibrinogen 350.0 mg/dL (238-498) 09/13/16 19:20 Assessment/Plan 21yM with PMH 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 He is being admitted for sepsis. Sepsis secondary to pneumonia vs acute abdominal pathology Abdominal distention/volvulus anemia PU stage 2 sacrum seizure disorder functional quadriplegia plan patient off of abx stable g tube replaced no other issues
--- NOTE | 2016-09-20 14:08 | PN ---
Progress Note (short form) - Note Progress Note: G-Tube study revealed contrast in stomach and duodenal sweep. pneumoperitoneum also described I advised Haley SosaTodd Manzanares's nurse to discuss the pneumoperitoneum finding with him prior to restarting feeds. ? if this is related to recent surgery
--- NOTE | 2016-09-20 15:14 | HOSP ---
Subjective - Review of Symptoms Events since last encounter: Received phone call from radiologist Dr. Palmer at 3:00pm advising of possible pneumoperitoneum seen on abdominal film s/p placement of new G-tube by Dr. Wang. He recommended a CT scan. Ordered CT chest, abdomen, pelvis STAT. Spoke to VALARIE De Leon, at 3:05pm who stated she was aware of the xray results, had already spoken to Drs. Wang and , and was told she could use the feeding tube and wanted to know if I was ready to discharge the patient. I advised her not to use the feeding tube until the results of the CT scan are obtained and entered a written order to that effect. I was not notified of the xray results until I received the call from . Physical Examination Vital Signs: Vital Signs Temperature 97.5 F L 09/20/16 14:50 Pulse Rate 70 09/20/16 14:50 Respiratory Rate 18 09/20/16 14:50 Blood Pressure 90/66 09/20/16 14:50 O2 Sat by Pulse Oximetry (%) 96 09/20/16 09:00 Labs: CBC, BMP 09/19/16 11:15 09/19/16 11:15
--- NOTE | 2016-09-20 15:50 | HOSP ---
Subjective - Review of Symptoms Events since last encounter: At 3:30pm went to patient's bedside. RN present. G-tube was out, RN holding in her hand. Advised RN to put on an occlusive dressing I would notify Dr. Wang. Notified Dr. Wang who came to the bedside to treat the patient. Discussed imaging with Dr. Spain and told him I was proceeding with CT imaging. He said he would follow up the imaging results. Physical Examination Vital Signs: Vital Signs Temperature 97.5 F L 09/20/16 14:50 Pulse Rate 70 09/20/16 14:50 Respiratory Rate 18 09/20/16 14:50 Blood Pressure 90/66 09/20/16 14:50 O2 Sat by Pulse Oximetry (%) 96 09/20/16 09:00 Labs: CBC, BMP 09/19/16 11:15 09/19/16 11:15
--- NOTE | 2016-09-20 15:53 | PN ---
Progress Note (short form) - Note Progress Note: called by nurse that G-Tube was out. Haley the nurse tells me that the balloon appeared deflated. The balloon on the 16Fr replacement G-Tube was again checked , this time with saline. It held the saline. The G tube was again inserted without difficulty into the stomach and 6cc NS was infused into the balloon. He is having a CT scan to evaluate ? Free air on AXR
[2016-09-20] MEDS ORDERED: PIPERACILLIN/TAZOB 3.375 GM/50 ML PRE-DOCKED IVPB SCH (18:00)
[2016-09-20] MEDS ORDERED: AZTREONAM 2 GM in DEXTROSE 5%-WATER - 100 ML IVPB SCH (21:15)
[2016-09-20] MEDS ORDERED: PHENobarbital SODIUM 65 MG/1 ML VIAL IV SCH (22:00)
--- NOTE | 2016-09-20 22:05 | HOSP ---
Physical Examination Vital Signs: Vital Signs Temperature 97.6 F 09/20/16 18:20 Pulse Rate 67 09/20/16 18:20 Respiratory Rate 16 09/20/16 18:20 Blood Pressure 98/57 09/20/16 18:20 O2 Sat by Pulse Oximetry (%) 96 09/20/16 09:00 Labs: CBC, BMP 09/19/16 11:15 09/19/16 11:15 Hospitalist Encounter Assessment: Discussed CT findings with Dr. Russ. She states that Dr. Spain will be seeing pt in AM. As pt is asymptomatic, ok to continue meds via GT and ok to hold GT feed, but not necessary. CT findings not alarming. Labs ordered per Dr. Russ request for AM: CBC, CMP, crp, esr.
[2016-09-20] MEDS ORDERED: levETIRAcetam 500 MG/5 ML INJECTION VIAL IVPB SCH (22:15)
[2016-09-20] MEDS: AZTREONAM 2 GM in DEXTROSE 5%-WATER - 100 ML IVPB SCH (22:44)
[2016-09-21] MEDS: ACETAMINOPHEN 650 MG/20.3 ML ORAL SOLUTION (CUPS) GT SCH ×4 (00:10→18:17)
[2016-09-21] MEDS: SIMETHICONE 40 MG/0.6 ML BOTTLE GT SCH ×4 (00:10→17:35)
[2016-09-21] MEDS ORDERED: PT OWN MED DRAWER 7, Y5N ONE ×2 (05:58→23:20)
[2016-09-21] MEDS: AZTREONAM 2 GM in DEXTROSE 5%-WATER - 100 ML IVPB SCH ×2 (06:09→18:04)
[2016-09-21 08:49] LABS: BASOPHIL 0.9 % (0-2.0); EOSINOPHIL 5.7 % (0-4.5); MCH 28.1 pg (25.7-33.7); MCHC 32.5 g/dl (32.0-35.9); MEAN CELL VOLUME 86.5 fl (80-96); MEAN PLT VOLUME 9.5 fl (7.5-11.1); NEUTROPHILS 72.2 % (42.8-82.8); PLATELET COUNT 363 K/MM3 (134-434); RDW 18.1 % (11.9-15.9)
[2016-09-21] MEDS ORDERED: PHENobarbital SODIUM 65 MG/1 ML VIAL IVPB SCH (10:00)
--- NOTE | 2016-09-21 10:10 | PN ---
Progress Note (short form) - Note Progress Note: Subjective: The patient was seen and examined at the bedside, he is non-verbal. He has the hiccups. CTAP and CT chest: b/l patchy airspace opacities consistent with pneumonic infiltrates mainly involving the upper loves and left lower lobe. Moderate to large amount of free air/pneumoperitoneum in the abdomen and pelvis. Moderate amount of free fluid in the pelvis GI and surgery notified of findings yesterday evening Patient remains afebrile, WBC wnl Started on Aztreonam 09/20/16 Current Medications Generic Name Dose Route Start Last Admin Trade Name Freq PRN Reason Stop Dose Admin Acetaminophen 650 mg 09/17/16 18:00 09/21/16 06:09 Tylenol Oral Solution - GT 650 mg Q6H TRUDY Administration Fluticasone Propionate 1 spray 09/13/16 22:00 09/20/16 22:27 Flonase - NS 1 spray BID TRUDY Administration Aztreonam 2 gm/ Dextrose 100 mls @ 100 mls/hr 09/20/16 21:30 IVPB 09/21/16 06:29 Q8H TRUDY Levetiracetam 500 mg 09/20/16 22:15 09/20/16 22:27 Keppra Oral Solution - GT 500 mg BID TRUDY Administration Mupirocin 1 applic 09/19/16 14:00 09/20/16 22:28 Bactroban 2% Ointment - TP 1 applic BID TRUDY Administration Pantoprazole Sodium 40 mg 09/16/16 10:00 09/20/16 10:05 Protonix Packets For Oral Suspension - GT Not Given DAILY TRUDY Phenobarbital 60 mg 09/20/16 22:15 09/20/16 22:27 Phenobarbital Liquid - GT 60 mg HS TRUDY Administration Phenobarbital 40 mg 09/21/16 10:00 Phenobarbital Liquid - GT DAILY TRUDY Polyethylene Glycol 17 gm 09/14/16 10:00 09/20/16 10:06 Miralax (For Daily Use) - PEG Not Given DAILY TRUDY Silver Sulfadiazine 1 applic 09/14/16 10:00 09/20/16 10:06 Silvadene - TP 1 applic DAILY TRUDY Administration Simethicone 80 mg 09/13/16 18:00 09/21/16 06:08 Mylicon Liquid - GT 80 mg Q6HPO TRUDY Administration Objective: Vital Signs Period Temp Pulse Resp BP Sys/Begum Pulse Ox Last 24 Hr 97.5 F-98 F 67-79 16-18 90-105/50-66 96 Physical Exam: General: NAD, MR, non-verbal, cachectic, temporal wasting Lungs: CTA bilaterally Heart: RRR, S1S2 Abd: Soft, non-tender. Normoactive bowel sounds. Midline abdominal incision with eli, c/d/i. LUQ G-tube in place, mild erythema surrounding. RLQ ileostomy with no output Ext: Thin, muscle wasting Neuro: Moving all extremities CBCD WBC 5.0 K/mm3 (4.0-10.0) 09/21/16 06:00 RBC 4.36 M/mm3 (4.00-5.60) 09/21/16 06:00 Hgb 12.3 GM/dL (11.7-16.9) D 09/21/16 06:00 Hct 37.7 % (35.4-49) 09/21/16 06:00 MCV 86.5 fl (80-96) 09/21/16 06:00 MCHC 32.5 g/dl (32.0-35.9) 09/21/16 06:00 RDW 18.1 % (11.9-15.9) H 09/21/16 06:00 Plt Count 363 K/MM3 (134-434) 09/21/16 06:00 MPV 9.5 fl (7.5-11.1) 09/21/16 06:00 CMP Sodium 136 mmol/L (136-145) 09/19/16 11:15 Potassium 4.6 mmol/L (3.5-5.1) 09/19/16 11:15 Chloride 101 mmol/L (98-107) 09/19/16 11:15 Carbon Dioxide 26 mmol/L (21-32) 09/19/16 11:15 Anion Gap 9 (8-16) 09/19/16 11:15 BUN 18 mg/dL (7-18) 09/19/16 11:15 Creatinine 0.3 mg/dL (0.7-1.3) L 09/19/16 11:15 Creat Clearance w eGFR > 60 (>60) 09/19/16 11:15 Random Glucose 89 mg/dL (74-106) 09/19/16 11:15 Calcium 8.8 mg/dL (8.5-10.1) 09/19/16 11:15 Total Bilirubin 0.3 mg/dL (0.2-1.0) 09/19/16 11:15 AST 16 U/L (15-37) D 09/19/16 11:15 ALT 19 U/L (12-78) 09/19/16 11:15 Alkaline Phosphatase 95 U/L (45-117) 09/19/16 11:15 Total Protein 7.6 g/dl (6.4-8.2) 09/19/16 11:15 Albumin 3.5 g/dl (3.4-5.0) 09/19/16 11:15 Microbiology 09/06/16 03:51 Nasopharyngeal Swab Respiratory Virus Panel - Final 09/06/16 01:05 Blood - Peripheral Venous Blood Culture - Final NO GROWTH AFTER 5 DAYS INCUBATION 09/06/16 01:00 Blood - Peripheral Venous Blood Culture - Final NO GROWTH AFTER 5 DAYS INCUBATION 09/06/16 04:23 Urine - Urine - Catheterized Urine Culture - Final NO GROWTH OBTAINED 09/06/16 05:50 Stool Clostridium difficile Antigen (TESFAYE) - Final 09/06/16 05:50 Stool Clostridium difficile Toxin Assay - Final 09/06/16 03:51 Nasopharyngeal Swab Influenza Types A,B Antigen (TESFAYE) - Final 09/06/16 03:51 Nasopharyngeal Swab - Final Assessment: This is a 21 year old male with PMHx of Down Syndrome, severe mental retardation, autism, pyloric stricture, seizure disorder, and recurrent volvulus who presented to the ED with sepsis 2/2 pneumonia and found to have a sigmoid volvulus. Plan: 1) GI: Pneumoperitoneum - S/p subtotal colectomy, ileostomy, g-tube placement on 09/13/16 - Surgery and GI made aware of CTAP findings of pneumoperitoneum on 09/20/16 - Afebrile, WBC wnl - Restarted on Aztreonam 09/20 - No guarding or tenderness on exam. Abdomen soft - G-tube in place, holding feeds - Ileostomy bag with no output - Per surgery, ok to continue G-tube medications - Appreciate surgery consult - Appreciate GI consult - Appreciate ID consult 2) Neuro: Seizure disorder - Continue Keppra - Continue Phenobarbital 3) F/E/N: - Monitor electrolytes - NPO, continue to hold tube feeds 4) Prophylaxis: - Hold all chemical anticoagulation - SCDs bilaterally - Functional quadriplegia 5) Dispo - Requires continued inpatient care CODE STATUS: FULL CODE Visit type - Emergency Visit Emergency Visit: Yes ED Registration Date: 09/06/16 Care time: The patient presented to the Emergency Department on the above date and was hospitalized for further evaluation of their emergent condition. - New Patient This patient is new to me today: Yes Date on this admission: 09/21/16 - Critical Care Critical Care patient: No
[2016-09-21 11:11] LABS: ALBUMIN 3.6 g/dl (3.4-5.0); ALK PHOS 93 U/L (45-117); ANION GAP 15 (8-16); BILIRUBIN,TOTAL 0.4 mg/dL (0.2-1.0); CO2 20 mmol/L (21-32); CREATININE 0.4 mg/dL (0.7-1.3); GLUCOSE,RANDOM 70 mg/dL (74-106); MAGNESIUM 2.4 mg/dL (1.8-2.4); SGPT/ALT 23 U/L (12-78); TOT PROT 8.2 g/dl (6.4-8.2)
[2016-09-21] MEDS: PHENobarbital 20 MG/5 ML UNIT-DOSE CUP GT SCH ×2 (12:10→21:57)
[2016-09-21] MEDS: MUPIROCIN 2% TOPICAL OINTMENT 22 GM TUBE TP SCH ×2 (12:11→21:57)
[2016-09-21] MEDS: FLUTICASONE PROP 0.05% 16 GM NASAL SPRAY NS SCH ×2 (12:11→21:57)
[2016-09-21] MEDS: POLYETHYLENE GLYCOL 3350 119 GM BTL PEG SCH (12:11)
[2016-09-21] MEDS: PANTOPRAZOLE SOD 40 MG SUSPENSION PACKET GT SCH (12:11)
[2016-09-21] MEDS: SILVER SULFADIAZINE 1% TOP CREAM 50 GM JAR TP SCH (12:11)
[2016-09-21] MEDS: levETIRAcetam 500 MG/5 ML ORAL SOLUTION (UNIT-DOSE CUPS) GT SCH ×2 (12:12→21:58)
[2016-09-21 12:58] LABS: SGOT/AST 32 U/L (15-37)
[2016-09-21 13:15] LABS: INR 1.17 (0.82-1.09); PROTHROMBIN TIME (PATIENT) 12.9 SEC (9.98-11.88)
--- NOTE | 2016-09-21 14:47 | PN ---
Progress Note, Physician Chief Complaint: free air History of Present Illness: pt clinically unchanged. nonverbal. no issues. CT reviewed. no fever. no leukocytosis. - Current Medication List Current Medications: Active Medications Acetaminophen (Tylenol Oral Solution -) 650 mg GT Q6H [facility] Last Admin: 09/21/16 12:10 Dose: 650 mg Fluticasone Propionate (Flonase -) 1 spray NS BID [facility] Last Admin: 09/21/16 12:11 Dose: 1 spray Aztreonam 2 gm/ Dextrose 100 mls @ 100 mls/hr IVPB Q8H [facility] Stop: 09/21/16 06:29 Levetiracetam (Keppra Oral Solution -) 500 mg GT BID [facility] Last Admin: 09/21/16 12:12 Dose: 500 mg Mupirocin (Bactroban 2% Ointment -) 1 applic TP BID [facility] Last Admin: 09/21/16 12:11 Dose: 1 applic Pantoprazole Sodium (Protonix Packets For Oral Suspension -) 40 mg GT DAILY [facility] Last Admin: 09/21/16 12:11 Dose: 40 mg Phenobarbital (Phenobarbital Liquid -) 60 mg GT HS [facility] Last Admin: 09/20/16 22:27 Dose: 60 mg Phenobarbital (Phenobarbital Liquid -) 40 mg GT DAILY [facility] Last Admin: 09/21/16 12:10 Dose: 40 mg Polyethylene Glycol (Miralax (For Daily Use) -) 17 gm PEG DAILY [facility] Last Admin: 09/21/16 12:11 Dose: 17 grams Silver Sulfadiazine (Silvadene -) 1 applic TP DAILY [facility] Last Admin: 09/21/16 12:11 Dose: 1 applic Simethicone (Mylicon Liquid -) 80 mg GT Q6HPO [facility] Last Admin: 09/21/16 12:17 Dose: 80 mg - Objective Vital Signs: Vital Signs Temperature 98 F 09/21/16 06:00 Pulse Rate 79 09/21/16 06:00 Respiratory Rate 16 09/21/16 06:00 Blood Pressure 102/50 09/21/16 06:00 O2 Sat by Pulse Oximetry (%) 96 09/20/16 21:00 Constitutional: Yes: No Distress Gastrointestinal: Yes: Soft. No: Distention, Tenderness Wound/Incision: Yes: Clean/Dry, Well Approximated, Eli Removed Labs: CBC, BMP 09/21/16 06:00 09/21/16 06:00 INR, PTT INR 1.17 (0.82-1.09) H 09/21/16 11:50 Fibrinogen 350.0 mg/dL (238-498) 09/13/16 19:20 Problem List - Problems (1) Abdominal distention Assessment/Plan: s/p subtotal colectomy no evidence of leaking G -tube unclear etiology of free air but if he truly had perf viscus would have seen contrast on CT extravasating. nonetheless given benign appearance can resume TF please cont aspiration precautions eli removed f/u prn Code(s): R14.0 - ABDOMINAL DISTENSION (GASEOUS) (2) Down's syndrome Code(s): Q90.9 - DOWN SYNDROME, UNSPECIFIED (3) Pneumonia Code(s): J18.9 - PNEUMONIA, UNSPECIFIED ORGANISM Qualifiers: Pneumonia type: due to unspecified organism Laterality: right Lung location: lower lobe of lung Qualified Code(s): J18.9 - Pneumonia, unspecified organism (4) Sigmoid volvulus Code(s): K56.2 - VOLVULUS (5) Seizure Code(s): R56.9 - UNSPECIFIED CONVULSIONS
--- NOTE | 2016-09-21 15:59 | PN ---
Progress Note, Physician History of Present Illness: patient comfortable no events surgery note noted - Current Medication List Current Medications: Active Medications Acetaminophen (Tylenol Oral Solution -) 650 mg GT Q6H [facility] Last Admin: 09/21/16 12:10 Dose: 650 mg Fluticasone Propionate (Flonase -) 1 spray NS BID [facility] Last Admin: 09/21/16 12:11 Dose: 1 spray Aztreonam 2 gm/ Dextrose 100 mls @ 100 mls/hr IVPB Q8H [facility] Stop: 09/21/16 06:29 Levetiracetam (Keppra Oral Solution -) 500 mg GT BID [facility] Last Admin: 09/21/16 12:12 Dose: 500 mg Mupirocin (Bactroban 2% Ointment -) 1 applic TP BID [facility] Last Admin: 09/21/16 12:11 Dose: 1 applic Pantoprazole Sodium (Protonix Packets For Oral Suspension -) 40 mg GT DAILY [facility] Last Admin: 09/21/16 12:11 Dose: 40 mg Phenobarbital (Phenobarbital Liquid -) 60 mg GT HS [facility] Last Admin: 09/20/16 22:27 Dose: 60 mg Phenobarbital (Phenobarbital Liquid -) 40 mg GT DAILY [facility] Last Admin: 09/21/16 12:10 Dose: 40 mg Polyethylene Glycol (Miralax (For Daily Use) -) 17 gm PEG DAILY [facility] Last Admin: 09/21/16 12:11 Dose: 17 grams Silver Sulfadiazine (Silvadene -) 1 applic TP DAILY [facility] Last Admin: 09/21/16 12:11 Dose: 1 applic Simethicone (Mylicon Liquid -) 80 mg GT Q6HPO [facility] Last Admin: 09/21/16 12:17 Dose: 80 mg - Objective Vital Signs: Vital Signs Temperature 97.8 F 09/21/16 15:09 Pulse Rate 92 H 09/21/16 15:09 Respiratory Rate 18 09/21/16 15:09 Blood Pressure 109/51 09/21/16 15:09 O2 Sat by Pulse Oximetry (%) 96 09/20/16 21:00 Constitutional: Yes: No Distress, Calm Cardiovascular: Yes: Regular Rate and Rhythm Respiratory: Yes: Regular, CTA Bilaterally Gastrointestinal: Yes: Normal Bowel Sounds, Soft, Other (feeding tube in place) Musculoskeletal: Yes: Other Extremities: Yes: Other Neurological: Yes: Alert Psychiatric: Yes: Alert Labs: CBC, BMP 09/21/16 06:00 09/21/16 06:00 INR, PTT INR 1.17 (0.82-1.09) H 09/21/16 11:50 Fibrinogen 350.0 mg/dL (238-498) 09/13/16 19:20 Assessment/Plan 21yM with PMH 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 He is being admitted for sepsis. Sepsis secondary to pneumonia vs acute abdominal pathology Abdominal distention/volvulus anemia PU stage 2 sacrum seizure disorder functional quadriplegia - Problems (1) Abdominal distention Code(s): R14.0 - ABDOMINAL DISTENSION (GASEOUS) (2) Down's syndrome Code(s): Q90.9 - DOWN SYNDROME, UNSPECIFIED (3) Pneumonia Code(s): J18.9 - PNEUMONIA, UNSPECIFIED ORGANISM Qualifiers: Pneumonia type: due to unspecified organism Laterality: right Lung location: lower lobe of lung Qualified Code(s): J18.9 - Pneumonia, unspecified organism (4) Sigmoid volvulus Code(s): K56.2 - VOLVULUS (5) Seizure Code(s): R56.9 - UNSPECIFIED CONVULSIONS plan continue abx for now if patient tolerates tube feed and has no issues then will stop abx surgery thought process noted will wait though to see what happens after tube feeds
[2016-09-21] MEDS: AZTREONAM 1 GM in DEXTROSE 5%-WATER - 50 ML IVPB SCH (17:33)
[2016-09-22] MEDS: ACETAMINOPHEN 650 MG/20.3 ML ORAL SOLUTION (CUPS) GT SCH ×4 (00:25→17:27)
[2016-09-22] MEDS: SIMETHICONE 40 MG/0.6 ML BOTTLE GT SCH ×4 (00:35→17:28)
[2016-09-22] MEDS: AZTREONAM 1 GM in DEXTROSE 5%-WATER - 50 ML IVPB SCH ×2 (02:15→10:33)
[2016-09-22 08:11] LABS: MCH 28.1 pg (25.7-33.7); MCHC 32.7 g/dl (32.0-35.9); MEAN PLT VOLUME 9.2 fl (7.5-11.1); PLATELET COUNT 376 K/MM3 (134-434); RDW 18.3 % (11.9-15.9); WHITE BLOOD COUNT 5.3 K/mm3 (4.0-10.0)
--- NOTE | 2016-09-22 09:01 | PN ---
Progress Note (short form) - Note Progress Note: Subjective: The patient was seen and examined at the bedside, he is non-verbal. he has no evidence on tenderness on abdominal exam Surgery note reviewed, patient began tube feeds yesterday Current Medications Generic Name Dose Route Start Last Admin Trade Name David PRN Reason Stop Dose Admin Acetaminophen 650 mg 09/17/16 18:00 09/22/16 06:36 Tylenol Oral Solution - GT 650 mg Q6H TRUDY Administration Fluticasone Propionate 1 spray 09/13/16 22:00 09/21/16 21:57 Flonase - NS 1 spray BID TRUDY Administration Aztreonam 1 gm/ Dextrose 50 mls @ 100 mls/hr 09/21/16 18:00 09/22/16 02:15 IVPB 100 mls/hr Q8H-IV TRUDY Administration Levetiracetam 500 mg 09/20/16 22:15 09/21/16 21:58 Keppra Oral Solution - GT 500 mg BID TRUDY Administration Mupirocin 1 applic 09/19/16 14:00 09/21/16 21:57 Bactroban 2% Ointment - TP 1 applic BID TRUDY Administration Pantoprazole Sodium 40 mg 09/16/16 10:00 09/21/16 12:11 Protonix Packets For Oral Suspension - GT 40 mg DAILY TRUDY Administration Phenobarbital 60 mg 09/20/16 22:15 09/21/16 21:57 Phenobarbital Liquid - GT 60 mg HS TRUDY Administration Phenobarbital 40 mg 09/21/16 10:00 09/21/16 12:10 Phenobarbital Liquid - GT 40 mg DAILY TRUDY Administration Polyethylene Glycol 17 gm 09/14/16 10:00 09/21/16 12:11 Miralax (For Daily Use) - PEG 17 grams DAILY TRUDY Administration Silver Sulfadiazine 1 applic 09/14/16 10:00 09/21/16 12:11 Silvadene - TP 1 applic DAILY TRUDY Administration Simethicone 80 mg 09/13/16 18:00 09/22/16 06:36 Mylicon Liquid - GT 80 mg Q6HPO TRUDY Administration Objective: Vital Signs Period Temp Pulse Resp BP Sys/Begum Pulse Ox Last 24 Hr 97.5 F-97.8 F 69-92 18-18 101-109/51-67 97 Physical Exam: General: NAD, MR, non-verbal, cachectic, temporal wasting Lungs: CTA bilaterally Heart: RRR, S1S2 Abd: Soft, non-tender. Normoactive bowel sounds. Midline abdominal incision, healing, eli removed yesterday, c/d/i. LUQ G-tube in place, mild excoriation surrounding. RLQ ileostomy with gas Ext: Thin, muscle wasting Neuro: Moving all extremities CBCD WBC 5.3 K/mm3 (4.0-10.0) 09/22/16 06:55 RBC 4.03 M/mm3 (4.00-5.60) 09/22/16 06:55 Hgb 11.3 GM/dL (11.7-16.9) L 09/22/16 06:55 Hct 34.7 % (35.4-49) L 09/22/16 06:55 MCV 86.0 fl (80-96) 09/22/16 06:55 MCHC 32.7 g/dl (32.0-35.9) 09/22/16 06:55 RDW 18.3 % (11.9-15.9) H 09/22/16 06:55 Plt Count 376 K/MM3 (134-434) 09/22/16 06:55 MPV 9.2 fl (7.5-11.1) 09/22/16 06:55 CMP Sodium 135 mmol/L (136-145) L 09/21/16 06:00 Potassium 4.7 mmol/L (3.5-5.1) 09/21/16 06:00 Chloride 100 mmol/L (98-107) 09/21/16 06:00 Carbon Dioxide 20 mmol/L (21-32) L D 09/21/16 06:00 Anion Gap 15 (8-16) 09/21/16 06:00 BUN 23 mg/dL (7-18) H D 09/21/16 06:00 Creatinine 0.4 mg/dL (0.7-1.3) L D 09/21/16 06:00 Creat Clearance w eGFR > 60 (>60) 09/21/16 06:00 Random Glucose 70 mg/dL (74-106) L D 09/21/16 06:00 Calcium 9.0 mg/dL (8.5-10.1) 09/21/16 06:00 Total Bilirubin 0.4 mg/dL (0.2-1.0) D 09/21/16 06:00 AST 32 U/L (15-37) D 09/21/16 06:00 ALT 23 U/L (12-78) D 09/21/16 06:00 Alkaline Phosphatase 93 U/L (45-117) 09/21/16 06:00 Total Protein 8.2 g/dl (6.4-8.2) 09/21/16 06:00 Albumin 3.6 g/dl (3.4-5.0) 09/21/16 06:00 Microbiology 09/06/16 03:51 Nasopharyngeal Swab Respiratory Virus Panel - Final 09/06/16 01:05 Blood - Peripheral Venous Blood Culture - Final NO GROWTH AFTER 5 DAYS INCUBATION 09/06/16 01:00 Blood - Peripheral Venous Blood Culture - Final NO GROWTH AFTER 5 DAYS INCUBATION 09/06/16 04:23 Urine - Urine - Catheterized Urine Culture - Final NO GROWTH OBTAINED 09/06/16 05:50 Stool Clostridium difficile Antigen (TESFAYE) - Final 09/06/16 05:50 Stool Clostridium difficile Toxin Assay - Final 09/06/16 03:51 Nasopharyngeal Swab Influenza Types A,B Antigen (TESFAYE) - Final 09/06/16 03:51 Nasopharyngeal Swab - Final Assessment: This is a 21 year old male with PMHx of Down Syndrome, severe mental retardation, autism, pyloric stricture, seizure disorder, and recurrent volvulus who presented to the ED with sepsis 2/2 pneumonia and found to have a sigmoid volvulus. Plan: 1) GI: Pneumoperitoneum - S/p subtotal colectomy, ileostomy, g-tube placement on 09/13/16 - Surgery note reviewed no evidence of leaking G-tube, started on tube feeds yesterday per surgery - Afebrile, WBC wnl - Restarted on Aztreonam 09/20 - No guarding or tenderness on exam. Abdomen soft - Per surgery, ok to continue G-tube medications - Appreciate surgery consult - Appreciate GI consult - Appreciate ID consult 2) Neuro: Seizure disorder - Continue Keppra - Continue Phenobarbital 3) F/E/N: - Monitor electrolytes - Tube feeds restarted yesterday 4) Prophylaxis: - Hold all chemical anticoagulation - SCDs bilaterally - Functional quadriplegia 5) Dispo - Requires continued inpatient care CODE STATUS: FULL CODE Visit type - Emergency Visit Emergency Visit: Yes ED Registration Date: 09/06/16 Care time: The patient presented to the Emergency Department on the above date and was hospitalized for further evaluation of their emergent condition. - New Patient This patient is new to me today: No - Critical Care Critical Care patient: No
[2016-09-22 09:08] LABS: CALCIUM 8.6 mg/dL (8.5-10.1); CREATININE 0.3 mg/dL (0.7-1.3)
[2016-09-22] MEDS: SILVER SULFADIAZINE 1% TOP CREAM 50 GM JAR TP SCH (10:33)
[2016-09-22] MEDS: MUPIROCIN 2% TOPICAL OINTMENT 22 GM TUBE TP SCH ×2 (10:33→21:36)
[2016-09-22] MEDS: FLUTICASONE PROP 0.05% 16 GM NASAL SPRAY NS SCH ×2 (10:33→21:36)
[2016-09-22] MEDS: PANTOPRAZOLE SOD 40 MG SUSPENSION PACKET GT SCH (10:39)
[2016-09-22] MEDS: levETIRAcetam 500 MG/5 ML ORAL SOLUTION (UNIT-DOSE CUPS) GT SCH ×2 (10:39→21:36)
[2016-09-22] MEDS: POLYETHYLENE GLYCOL 3350 119 GM BTL PEG SCH (10:40)
[2016-09-22] MEDS: PHENobarbital 20 MG/5 ML UNIT-DOSE CUP GT SCH ×2 (10:40→21:37)
[2016-09-22] MEDS ORDERED: PT OWN MED DRAWER 7, Y5N ONE ×3 (12:33→21:24)
--- NOTE | 2016-09-22 16:19 | PN ---
Progress Note, Physician History of Present Illness: stable no events overnight tolerating tf abd is soft - Current Medication List Current Medications: Active Medications Acetaminophen (Tylenol Oral Solution -) 650 mg GT Q6H [facility] Last Admin: 09/22/16 12:46 Dose: 650 mg Fluticasone Propionate (Flonase -) 1 spray NS BID [facility] Last Admin: 09/22/16 10:33 Dose: 1 spray Levetiracetam (Keppra Oral Solution -) 500 mg GT BID [facility] Last Admin: 09/22/16 10:39 Dose: 500 mg Mupirocin (Bactroban 2% Ointment -) 1 applic TP BID [facility] Last Admin: 09/22/16 10:33 Dose: 1 applic Pantoprazole Sodium (Protonix Packets For Oral Suspension -) 40 mg GT DAILY [facility] Last Admin: 09/22/16 10:39 Dose: 40 mg Phenobarbital (Phenobarbital Liquid -) 60 mg GT HS [facility] Last Admin: 09/21/16 21:57 Dose: 60 mg Phenobarbital (Phenobarbital Liquid -) 40 mg GT DAILY [facility] Last Admin: 09/22/16 10:40 Dose: 40 mg Polyethylene Glycol (Miralax (For Daily Use) -) 17 gm PEG DAILY [facility] Last Admin: 09/22/16 10:40 Dose: 17 grams Silver Sulfadiazine (Silvadene -) 1 applic TP DAILY [facility] Last Admin: 09/22/16 10:33 Dose: 1 applic Simethicone (Mylicon Liquid -) 80 mg GT Q6HPO [facility] Last Admin: 09/22/16 12:46 Dose: 80 mg - Objective Vital Signs: Vital Signs Temperature 98.7 F 09/22/16 15:35 Pulse Rate 76 09/22/16 15:35 Respiratory Rate 18 09/22/16 15:35 Blood Pressure 117/81 09/22/16 15:35 O2 Sat by Pulse Oximetry (%) 96 09/22/16 09:53 Constitutional: Yes: No Distress, Calm Cardiovascular: Yes: Regular Rate and Rhythm Respiratory: Yes: Regular, CTA Bilaterally Gastrointestinal: Yes: Normal Bowel Sounds, Soft, Other (peg in place) Musculoskeletal: Yes: Other Extremities: Yes: Other Neurological: Yes: Alert, Other Labs: CBC, BMP 09/22/16 06:55 09/22/16 06:55 INR, PTT INR 1.17 (0.82-1.09) H 09/21/16 11:50 Fibrinogen 350.0 mg/dL (238-498) 09/13/16 19:20 Assessment/Plan 21yM with PMH 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 He is being admitted for sepsis. Sepsis secondary to pneumonia vs acute abdominal pathology Abdominal distention/volvulus anemia PU stage 2 sacrum seizure disorder functional quadriplegia - Problems (1) Abdominal distention Code(s): R14.0 - ABDOMINAL DISTENSION (GASEOUS) (2) Down's syndrome Code(s): Q90.9 - DOWN SYNDROME, UNSPECIFIED (3) Pneumonia Code(s): J18.9 - PNEUMONIA, UNSPECIFIED ORGANISM Qualifiers: Pneumonia type: due to unspecified organism Laterality: right Lung location: lower lobe of lung Qualified Code(s): J18.9 - Pneumonia, unspecified organism (4) Sigmoid volvulus Code(s): K56.2 - VOLVULUS (5) Seizure Code(s): R56.9 - UNSPECIFIED CONVULSIONS plan will stop abx continue to monitor
[2016-09-23] MEDS: ACETAMINOPHEN 650 MG/20.3 ML ORAL SOLUTION (CUPS) GT SCH ×3 (00:05→11:09)
[2016-09-23] MEDS: SIMETHICONE 40 MG/0.6 ML BOTTLE GT SCH ×3 (00:05→11:09)
[2016-09-23 07:47] VITALS: BP 113/78; PULSE 88; TEMP 97.7
[2016-09-23 09:16] LABS: CALCIUM 9.7 mg/dL (8.5-10.1); CREATININE 0.4 mg/dL (0.7-1.3)
[2016-09-23] MEDS: FLUTICASONE PROP 0.05% 16 GM NASAL SPRAY NS SCH (09:34)
[2016-09-23] MEDS: MUPIROCIN 2% TOPICAL OINTMENT 22 GM TUBE TP SCH (09:35)
[2016-09-23] MEDS: SILVER SULFADIAZINE 1% TOP CREAM 50 GM JAR TP SCH (09:35)
[2016-09-23] MEDS: PANTOPRAZOLE SOD 40 MG SUSPENSION PACKET GT SCH (09:39)
[2016-09-23] MEDS: PHENobarbital 20 MG/5 ML UNIT-DOSE CUP GT SCH (09:39)
[2016-09-23] MEDS: POLYETHYLENE GLYCOL 3350 119 GM BTL PEG SCH (09:40)
[2016-09-23] MEDS: levETIRAcetam 500 MG/5 ML ORAL SOLUTION (UNIT-DOSE CUPS) GT SCH (09:42)
--- NOTE | 2016-09-23 09:44 | DS ---
Physical Examination Vital Signs: Vital Signs Temperature 97.7 F 09/23/16 06:46 Pulse Rate 88 09/23/16 06:46 Respiratory Rate 16 09/23/16 06:46 Blood Pressure 113/78 09/23/16 06:46 O2 Sat by Pulse Oximetry (%) 98 09/22/16 21:00 Findings/Remarks: Physical Exam: General: NAD, MR, non-verbal, cachectic, temporal wasting Lungs: CTA bilaterally Heart: RRR, S1S2 Abd: Soft, non-tender. Normoactive bowel sounds. Midline abdominal incision, healing, eli removed yesterday, c/d/i. LUQ G-tube in place, mild excoriation surrounding. RLQ ileostomy with gas Ext: Thin, muscle wasting Neuro: Moving all extremities Labs: CBC, BMP 09/22/16 06:55 09/23/16 07:00 Discharge Summary Reason For Visit: DIARRHEA ABDOMINAL DISTENTION DEHYDRATION Current Active Problems Abdominal distention (Acute) Anemia (Acute) Dehydration (Acute) Diarrhea (Acute) Down's syndrome (Acute) Gastric hourglass stricture or stenosis (Acute) Gastrointestinal hemorrhage (Acute) H/O Mackenzie-Guillen syndrome (Acute) Ileus (Acute) Infection of gastrostomy (Acute) Peritonitis (acute) generalized (Acute) Pneumonia (Acute) Sigmoid polyp (Acute) Sigmoid volvulus (Acute) Stercoral ulcer of rectum (Acute) Hospital Course: This is a 21 year old male with PMHx of Down Syndrome, severe mental retardation , autism, pyloric stricture, seizure disorder, and recurrent volvulus who presented to the ED with sepsis 2/2 pneumonia and found to have a sigmoid volvulus. Plan: 1) GI: Pneumoperitoneum - S/p subtotal colectomy, ileostomy, g-tube placement on 09/13/16 - Surgery note reviewed no evidence of leaking G-tube, started on tube feeds yesterday per surgery - Afebrile, WBC wnl - Abx discontinued 09/22 - No guarding or tenderness on exam. Abdomen soft - Per surgery, ok to continue G-tube medications - Appreciate surgery consult - Appreciate GI consult - Appreciate ID consult 2) Neuro: Seizure disorder - Continue Keppra - Continue Phenobarbital 3) F/E/N: - Monitor electrolytes - Tube feeds restarted yesterday 4) Prophylaxis: - Hold all chemical anticoagulation - SCDs bilaterally - Functional quadriplegia 5) Dispo - Requires continued inpatient care Spoke to RN at [facility] who has accepted the patient back. Left message for Dr. Horta ([phone]) to provide update. Ostomy supplies sent to pharmacy. Please return to the ED with new, persistent, or worsening symptoms. This discharge took 45 minutes to complete. Condition: Stable - Instructions Diet, Activity, Other Instructions: Please return to the ED with new, persistent, or worsening symptoms. Tube Feeds: Perative @ 55ml/hr with 25ml/hr water flushes Ostomy supplies: 1) [place] bag 2 1/4in, 55mm 2) [place]uf[place] New Image 55mm Flange 3) Ostomy paste Referrals: Johnson Horta MD [Primary Care Provider] - (Please follow-up with Dr. Horta within 2-3 days) Otf Wang DO [Staff Physician] - (Please follow-up with GI within 1 week. ) Edward Spain MD [Staff Physician] - (Please follow-up with surgery within 1 week) - Home Medications Comprehensive Discharge Medication List: Ambulatory Orders Melatonin 6 mg GT HS 12/03/13 Levetiracetam [Keppra Oral Solution -] 500 mg GT BID 03/27/15 Polyethylene Glycol 3350 [Glycolax] 17 gm GT Q12H 03/27/15 Acetaminophen [Tylenol] 650 mg GT Q4H PRN 04/11/15 Phenobarbital Liquid - [Phenobarbital Liquid 20 MG/5 ML -] 40 mg GT AM 04/11/15 Phenobarbital Liquid - [Phenobarbital Liquid 20 MG/5 ML -] 60 mg GT HS 04/11/15 Fluticasone Prop 0.05% Nasal [Flonase -] 1 - 2 spray NS BID 03/10/16 Ranitidine Oral Solution [Zantac Oral Solution -] 150 mg GT Q12H 03/10/16 Simethicone Liquid [Mylicon Liquid -] 40 mg GT TID 03/10/16 Sucralfate Oral Suspension [Carafate Oral Suspension -] 1 gm GT TID 03/10/16 Silver Sulfadiazine 1% Top Cr [Silvadene -] 1 applic TP BID jar 09/18/16 Nut.tx. Metabolic Disorder,Soy [Perative] 237 ml GT DAILY #60 liquid 09/23/16 Ostomy Supply [Coloplast Paste] 60 gm MC PRN PRN #1 paste..g. 09/23/16 Ostomy Supply [Drainable Pouch] 1 each MC PRN PRN #60 each 09/23/16 Ostomy Supply [New Image] 1 each MC PRN PRN #60 each 09/23/16 Ostomy Supply [Ostomy Protective Powder] 28.3 gm TP PRN PRN #1 powder 09/23/16 Ostomy Supply [Skin-Prep] 118 ml MC PRN PRN #1 spray 09/23/16 This patient is new to me today: No Emergency Visit: Yes ED Registration Date: 09/06/16 Care time: The patient presented to the Emergency Department on the above date and was hospitalized for further evaluation of their emergent condition. Critical Care patient: No - Discharge Referral Referred to [facility] No
== END 2016-09-23 11:35 | disposition home or self-care (01) | DRG 853 ==
LOC: SUPCPDRO 23:30 → JER 23:30 → JERBED 09-06 03:22 → J7W 09-06 20:54 → J8W 09-13 14:29
PROVIDERS: ADMIT Internal Medicine; ATTEND Registered Nurse
PROC: 3E0G76Z Introduction of Nutritional Substance into Upper GI, Via Natural or Artificial Opening (ICD-10-PCS; 2016-09-06)
PROC: 0D1B0Z4 Bypass Ileum to Cutaneous, Open Approach (ICD-10-PCS; 2016-09-13)
PROC: 30233L1 Transfusion of Nonautologous Fresh Plasma into Peripheral Vein, Percutaneous Approach (ICD-10-PCS; 2016-09-13)
PROC: 30233N1 Transfusion of Nonautologous Red Blood Cells into Peripheral Vein, Percutaneous Approach (ICD-10-PCS; 2016-09-13)
PROC: 30233K1 Transfusion of Nonautologous Frozen Plasma into Peripheral Vein, Percutaneous Approach (ICD-10-PCS; 2016-09-13)
PROC: 0DBE0ZZ Excision of Large Intestine, Open Approach (ICD-10-PCS; principal; 2016-09-13 09:00)
PROC: 0D20XUZ Change Feeding Device in Upper Intestinal Tract, External Approach (ICD-10-PCS; 2016-09-20)
DX: A41.9 Sepsis, unspecified organism (principal); K56.2 Volvulus; R53.2 Functional quadriplegia; J18.9 Pneumonia, unspecified organism; F72 Severe intellectual disabilities; F84.0 Autistic disorder; K62.6 Ulcer of anus and rectum; D68.9 Coagulation defect, unspecified; Z43.1 Encounter for attention to gastrostomy; R64 Cachexia; Z68.1 Body mass index [BMI] 19.9 or less, adult; E86.0 Dehydration; Q90.9 Down syndrome, unspecified; G40.909 Epilepsy, unspecified, not intractable, without status epilepticus; L89.152 Pressure ulcer of sacral region, stage 2; E87.6 Hypokalemia; D50.9 Iron deficiency anemia, unspecified; R06.6 Hiccough; K66.8 Other specified disorders of peritoneum
CPT/HCPCS: 36415; 36430; 71010-TC; 71250-TC; 74000-TC; 74176-TC; 80048; 80053; 80164; 80177; 81003; 81015; 82272; 82728; 82803; 83540; 83550; 83605; 83735; 84100; 85025; 85027; 85230; 85240; 85384; 85610; 85730; 86140; 86146; 86922; 87040; 87086; 87254; 87324; 87449; 87804; 88307-TC; 93005; 93010; 94760; 99283-25; J1756; P9017; P9038; P9058

== ENCOUNTER 2016-09-23 23:10 | Emergency (ER) | payer OTHER ==
[2016-09-23 23:19] VITALS: BMI 14.6
[2016-09-24] MEDS ORDERED: PEG/ELECTROLYTES (NULYTELY) 4,000 ML BOTTLE PO ONE (00:37)
--- NOTE | 2016-09-24 03:21 | PDOC ---
History of Present Illness - General History Source: Patient, Care Provider Exam Limitations: Clinical Condition - History of Present Illness Initial Comments: 09/24/16 03:28 The patient is a 21-year-old male with a significant past medical history of autism, down syndrome, seizures, volvulus, pyloric stricture, endoscopy and colonoscopy, and PEG placement, who presents to the emergency department from [facility] with complaints of nausea and 2 episodes of vomiting that began earlier today after he was discharged. The patient is nonverbal and unable to contribute to contribute to HPI. Information was obtained from his primary trust vault custodian and longterm records. As per trust vault custodian, the patient has not experience any associated fever, chills, or headache. She also reports he appears to be weaker than normal, with decreased appetite. The trust vault custodian denies the patient experienced any episodes of vomiting, diarrhea, or constipation. She also reports the patient was admitted on 09/05/16 for dehydration, abdominal distension, and diarrhea, but was discharged earlier today (09/23/16). Allergies: Penicillin and Shellfish <Jose Valera - Last Filed: 09/24/16 03:27> <Cydney Holt - Last Filed: 09/24/16 22:34> - General Chief Complaint: Nausea/Vomiting Stated Complaint: VOMITING Time Seen by Provider: 09/24/16 00:11 Past History <Jose Valera - Last Filed: 09/24/16 03:27> - Past Medical History GI Disorders: Yes (Alverto Button) Psychiatric Problems: Yes (autism, down syndrome,tantrums) Seizures: Yes - Surgical History Abdominal Surgery: (TESFAYE-BARAKAT BUTTON) - Immunization History Immunization Up to Date: Yes - Psycho/Social/Smoking Cessation Hx Anxiety: No Suicidal Ideation: No Smoking History: Never smoked Have you smoked in the past 12 months: No Information on smoking cessation initiated: No Hx Alcohol Use: No Drug/Substance Use Hx: No Substance Use Type: None Hx Substance Use Treatment: No <Cydney Holt - Last Filed: 09/24/16 22:34> - Past Medical History Allergies/Adverse Reactions: Allergies Allergy/AdvReac Type Severity Reaction Status Date / Time Penicillins Allergy Verified 09/23/16 23:14 shellfish derived Allergy Verified 09/23/16 23:14 Home Medications: Ambulatory Orders Melatonin 6 mg GT HS 03/18/14 Levetiracetam [Keppra Oral Solution -] 500 mg GT BID 03/27/15 Polyethylene Glycol 3350 [Glycolax] 17 gm GT Q12H 03/27/15 Acetaminophen [Tylenol] 650 mg GT Q4H PRN 04/11/15 Phenobarbital Liquid - [Phenobarbital Liquid 20 MG/5 ML -] 40 mg GT AM 04/11/15 Phenobarbital Liquid - [Phenobarbital Liquid 20 MG/5 ML -] 60 mg GT HS 04/11/15 Fluticasone Prop 0.05% Nasal [Flonase -] 1 - 2 spray NS BID 03/10/16 Ranitidine Oral Solution [Zantac Oral Solution -] 150 mg GT Q12H 03/10/16 Simethicone Liquid [Mylicon Liquid -] 40 mg GT TID 03/10/16 Sucralfate Oral Suspension [Carafate Oral Suspension -] 1 gm GT TID 03/10/16 Silver Sulfadiazine 1% Top Cr [Silvadene -] 1 applic TP BID jar 06/05/16 Nut.tx. Metabolic Disorder,Soy [Perative] 237 ml GT DAILY #60 liquid 09/23/16 Ostomy Supply [Coloplast Paste] 60 gm MC PRN PRN #1 paste..g. 09/23/16 Ostomy Supply [Drainable Pouch] 1 each MC PRN PRN #60 each 09/23/16 Ostomy Supply [New Image] 1 each MC PRN PRN #60 each 09/23/16 Ostomy Supply [Ostomy Protective Powder] 28.3 gm TP PRN PRN #1 powder 09/23/16 Ostomy Supply [Skin-Prep] 118 ml MC PRN PRN #1 spray 09/23/16 Review of Systems - Review of Systems Able to Perform ROS?: Yes Comments:: 09/24/16 03:30 GENERAL/CONSTITUTIONAL: No fever or chills. No weakness. HEAD, EYES, EARS, NOSE AND THROAT: No change in vision. No ear pain or discharge. No sore throat. CARDIOVASCULAR: No chest pain or shortness of breath. RESPIRATORY: No cough, wheezing, or hemoptysis. GASTROINTESTINAL: +Nausea. +Vomiting. No diarrhea or constipation. GENITOURINARY: No dysuria, frequency, or change in urination. MUSCULOSKELETAL: No joint or muscle swelling or pain. No neck or back pain. SKIN: No rash NEUROLOGIC: No headache, vertigo, loss of consciousness, or change in strength/ sensation. ENDOCRINE: No increased thirst. No abnormal weight change. HEMATOLOGIC/LYMPHATIC: No anemia, easy bleeding, or history of blood clots. ALLERGIC/IMMUNOLOGIC: No hives or skin allergy. <SotoLaraaristides - Last Filed: 09/24/16 03:27> *Physical Exam - Vital Signs Last Vital Signs Temp Pulse Resp BP Pulse Ox 111 H 14 131/89 95 09/23/16 23:16 09/23/16 23:16 09/23/16 23:16 09/23/16 23:16 - Physical Exam Comments: 09/24/16 03:31 GENERAL: The patient is awake, alert, and fully oriented, in no acute distress. HEAD: Normal with no signs of trauma. EYES: Pupils equal, round and reactive to light, extraocular movements intact, sclera anicteric, conjunctiva clear with no pallor. ENT: Ears normal, nares patent, oropharynx clear without exudates. Moist mucous membranes. NECK: Normal range of motion, supple without lymphadenopathy, JVD, or masses. LUNGS: Breath sounds equal, clear to auscultation bilaterally. No wheeze/ crackles. HEART: Regular rate and rhythm, normal S1 and S2 without murmur or rub. ABDOMEN: Soft/nontender/nondistended. BS wnl. No guarding or rebound. No palpable masses. No hepatosplenomegaly. EXTREMITIES: Normal range of motion, no edema. No clubbing or cyanosis. No cords, erythema, or tenderness. NEUROLOGICAL: Cranial nerves II through XII grossly intact. Normal speech, normal gait. PSYCH: Normal mood, normal affect. SKIN: Warm, Dry, normal turgor, no rashes or lesions noted. <ValeraJose arceo - Last Filed: 09/24/16 03:27> - Vital Signs Last Vital Signs Temp Pulse Resp BP Pulse Ox 111 H 14 131/89 95 09/23/16 23:16 09/23/16 23:16 09/23/16 23:16 09/23/16 23:16 <Cydney Holt - Last Filed: 09/24/16 22:34> ED Treatment Course - Medications Given in the ED: ED Medications Discontinued Medications Generic Name Dose Route Start Last Admin Trade Name Freq PRN Reason Stop Dose Admin Polyethylene Glycol/Electrolytes 4,000 ml 09/24/16 00:37 09/24/16 03:16 Nulytely PO 09/24/16 00:38 4,000 ml ONCE ONE Administration <Jose Valera - Last Filed: 09/24/16 03:27> - Medications Given in the ED: ED Medications Discontinued Medications Generic Name Dose Route Start Last Admin Trade Name Freq PRN Reason Stop Dose Admin Polyethylene Glycol/Electrolytes 4,000 ml 09/24/16 00:37 09/24/16 03:16 Nulytely PO 09/24/16 00:38 4,000 ml ONCE ONE Administration <Cydney Holt - Last Filed: 09/24/16 22:34> Medical Decision Making - Medical Decision Making 09/24/16 2:30 Pt comes from [place] after vomiting x 2 with his tube feeds. He recently underwent total colectomy in our hospital and he was admitted from Sep 05 until today. Today was his first day back at the [facility]. Pt is afebrile and his abd is doft and nontender. I will not check labs on patient, as he was discharged earlier today. Pt received a normal saline 1liter bolus through his PEG tube and he tolerated it well. Pt has no pain and appears well. He will be discharged back to the [facility]. I spoke to the doctor at the [facility] who is in agreement with this plan. Pt will continue observation in the [facility]. <Cydney Holt - Last Filed: 09/24/16 22:34> *DC/Admit/Observation/Transfer - Attestations Scribe Attestion: 09/24/16 03:31 Documentation prepared by Jose Valera, acting as medical stenographer for Cydney Holt MD. <Jose Valera - Last Filed: 09/24/16 03:27> - Discharge Dispostion Admit: No <Cydney Holt - Last Filed: 09/24/16 22:34> Diagnosis at time of Disposition: Gastrojejunostomy tube status, Dehydration - Discharge Dispostion Disposition: SNF FACILITY - Patient Instructions Printed Discharge Instructions: DI for Dehydration -- Adult
[2016-09-24 04:43] VITALS: BP 128/75; PULSE 72
== END 2016-09-24 04:44 ==
LOC: JER 23:10
DX: E86.0 Dehydration (principal); Z93.1 Gastrostomy status; F84.0 Autistic disorder; Q90.9 Down syndrome, unspecified; G40.802 Other epilepsy, not intractable, without status epilepticus
CPT/HCPCS: 99281-25